=== PATIENT | male | born 1975 | race Caucasian/White ===

== ENCOUNTER 2018-06-17 12:28 | Inpatient (IN) | payer SELFPAY ==
[~2018-06-17] VITALS: Ht 170.2 cm; Wt 71.8 kg
[2018-06-17] MEDS ORDERED: fentaNYL PF VIAL 100 MCG/2 ML VIAL IV ONE (12:45)
[2018-06-17] MEDS ORDERED: HALOPERIDOL LACTATE 5 MG/ML VIAL. IM ONE (12:45)
--- NOTE | 2018-06-17 12:45 | EKG ---
[facility] [address] [place] [address] Test Date: 2018-06-17 Test Time: 12:31:55 Pat Name: KELY BROOKS Department: Room: Gender: M [employer]: : 1975 Requested By: PIERRE DALEY Order Number: [id number] Reading MD: Aftab Rodriguez Measurements Intervals [place] Rate: 78 P: 66 OR: 146 QRS: 82 QRSD: 90 T: 64 QT: 386 QTc: 444 Interpretive Statements SINUS RHYTHM NONSPECIFIC ST-T WAVE CHANGES. Electronically Signed On 06-21-2018 9:20:05 CDT by Aftab Rodriguez
[2018-06-17 12:49] LABS: BASO # 0.1 x10^3/uL (0.0-0.2); BASO % 1 % (0-3); EOS # 0.3 x10^3/uL (0.0-0.7); EOS % 3 % (0-3); HEMATOCRIT 45.4 % (39.0-53.0); LYMPH # 4.6 x10^3/uL (1.0-4.8); LYMPH % 47 % (24-48); MEAN CORPUSCULAR HEMOGLOBIN 29 pg (25-35); MEAN CORPUSCULAR HGB CONC 35 g/dL (31-37); MEAN CORPUSCULAR VOLUME 83 fL (79-100); MONO # 0.6 x10^3/uL (0.0-1.1); MONO % 6 % (0-9); NEUT # 4.3 x10^3uL (1.8-7.7); NEUT % 44 % (31-73); PLATELET COUNT 297 x10^3/uL (140-400); RED BLOOD COUNT 5.46 x10^6/uL (4.30-5.70); RED CELL DISTRIBUTION WIDTH 13.1 % (11.5-14.5); WHITE BLOOD COUNT 9.9 x10^3/uL (4.0-11.0)
[2018-06-17] MEDS ORDERED: IOHEXOL 300 MG/ML 100ML VIAL. IV ONE (13:00)
[2018-06-17 13:01] LABS: CALCIUM 9.8 mg/dL (8.5-10.1); CREATININE 1.1 mg/dL (0.7-1.3); GFR 73.4; POTASSIUM 3.6 mmol/L (3.5-5.1)
[2018-06-17 13:15] LABS: ALBUMIN 4.1 g/dL (3.4-5.0); ALBUMIN/GLOBULIN RATIO 1.1 (1.0-1.7); TOTAL BILIRUBIN 0.3 mg/dL (0.2-1.0)
--- NOTE | 2018-06-17 13:52 | RAD ---
CT ABD PELV W/ IV CONTRST ONLY Indication: Severe pain Technique: Post contrast CT imaging was performed of the abdomen pelvis, multiplanar reconstruction images submitted. No oral contrast was given. One or more of the following individualized dose reduction techniques were utilized for this examination: 1. Automated exposure control 2. Adjustment of the mA and/or kV according to patient size 3. Use of iterative reconstruction technique. Comparison: None Findings: There is no abnormality of the limited visualized lung bases. Accurate evaluation of bowel is somewhat limited without oral contrast. There is prominent distention of stomach with fluid present. There is also dilatation of small bowel up to about 4.3 cm in caliber, associated long segment wall thickening more proximal small bowel most notable in the central and left abdomen. There is also dilatation of the duodenum. There is some transition of the caliber of the small bowel apparently in the left abdomen axial images 43 through 50 at which there appears to be somewhat rotational appearance of the mesentery vasculature and fat. More distal small bowel is not dilated. The colon is not significantly dilated. There is no free air or free fluid. There is distention of the urinary bladder. At least a segment of normal appendix is believed to be visualized. Both kidneys enhance, no hydronephrosis. There is no adrenal nodularity. No focal abnormality is identified of the liver, spleen, pancreas. Gallbladder is present without obvious intraluminal abnormality by CT. IMPRESSION: 1. There is evidence of small bowel obstruction with transition in the left abdomen, somewhat rotational appearance of mesenteric fat and vasculature in the left abdomen as may be seen with component of mesenteric volvulus. There is associated long segment small bowel wall thickening. There is no significant free fluid or free air. There is distention of stomach. 2. There is distention of the urinary bladder. Electronically signed by: Lamont Rizo MD (06/17/2018 1:49 PM) [email or web address]
[2018-06-17] MEDS ORDERED: IV NORMAL SALINE 1000ML BAG 1,000 ML IV ONE (14:15)
[2018-06-17] MEDS ORDERED: ONDANSETRON PF 4 MG/2 ML VIAL. IV PRN ×2 (14:15→16:15)
[2018-06-17] MEDS ORDERED: IV NORMAL SALINE 500ML BAG 500 ML IV ONE (14:15)
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
[2018-06-17] MEDS: MORPHINE SULFATE 4 MG/ML VIAL. IV PRN ×2 (14:28→22:10)
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
[2018-06-17 15:20] VITALS: BP 129/102
[2018-06-17] MEDS ORDERED: BUPIVAC MPF-EPI 0.5%-1:200000 30 ML VIAL. ONE (15:28)
--- NOTE | 2018-06-17 15:28 | RAD ---
AP view of the abdomen 3:12 PM Clinical indications: NG tube placement. IMPRESSION: NG tube is seen extending down to the distal esophagus and then is reflected upon itself within the distal esophagus. Therefore the tip is directed towards the mid thoracic esophagus. Repositioning is necessary. Electronically signed by: Earnest Bajwa MD (06/17/2018 3:25 PM) [id number]
--- NOTE | 2018-06-17 15:30 | RAD ---
AP view of the abdomen 3:00 p.m. Clinical indications: NG tube placement. Findings/ impression: NG tube seen extending down to the level of the distal esophagus and then the tube tip is directed back up into the esophagus. Therefore the tube is not located within the stomach. Repositioning of the 2 is necessary. There is moderate gaseous distention of the stomach. Electronically signed by: Earnest Bajwa MD (06/17/2018 3:27 PM) [id number]
--- NOTE | 2018-06-17 15:30 | NUR ---
Pt admitted from ED. Pt is A&O X4 drowsy, VSS, denies pain. Completed admission assessment with assistance from his mother. IVF infusing. NPO for surgery. Dr. Queen saw patient and plans to take him to surgery [facility]. Consents were signed. Report was given to Ashley. Call light within reach. Will continue to monitor.
[2018-06-17] MEDS: IV NORMAL SALINE 1000ML BAG 1,000 ML IV SCH ×2 (15:48→22:10)
[2018-06-17] MEDS ORDERED: IV RINGERS,LACTATED 1000ML 1,000 ML IV SCH (16:03)
[2018-06-17] MEDS ORDERED: SEVOFLURANE > 120 MINUTES. IH ONE (16:07)
[2018-06-17] MEDS ORDERED: SUCCINYLCHOLINE 200 MG/10 ML VIAL. ONE (16:08)
[2018-06-17] MEDS ORDERED: GLYCOPYRROLATE 1 MG/5 ML VIAL. ONE (16:08)
[2018-06-17] MEDS ORDERED: ROCURONIUM 50 MG/5 ML VIAL. ONE (16:08)
[2018-06-17] MEDS ORDERED: MIDAZOLAM HCL/PF 2 MG/2 ML VIAL. ONE ×2 (16:08→17:33)
[2018-06-17] MEDS ORDERED: fentaNYL PF VIAL 100 MCG/2 ML VIAL ONE (16:08)
[2018-06-17] MEDS ORDERED: NEOSTIGMINE METHYLSULFATE 5 MG/5 ML SYRINGE. ONE (16:08)
[2018-06-17] MEDS ORDERED: KETOROLAC 30 MG/ML INJ FOR OR. INJ ONE (16:09)
[2018-06-17] MEDS ORDERED: LIDOCAINE 2% PF 5 ML VIAL. ONE (16:09)
[2018-06-17] MEDS ORDERED: DEXAMETHASONE SOD PHOS 4 MG/ML VIAL ONE (16:09)
[2018-06-17] MEDS ORDERED: ONDANSETRON PF 4 MG/2 ML VIAL. ONE (16:09)
[2018-06-17] MEDS ORDERED: PROPOFOL 20 ML IV ONE (16:09)
[2018-06-17] MEDS ORDERED: fentaNYL PF VIAL 100 MCG/2 ML VIAL IV PRN ×2 (16:15)
[2018-06-17] MEDS ORDERED: LIDOCAINE 1% PF 2 ML VIAL. ID PRN (16:15)
[2018-06-17] MEDS ORDERED: PROCHLORPERAZINE 10 MG/2 ML VIAL. IV PRN (16:15)
[2018-06-17] MEDS ORDERED: HYDROmorphone 2 MG/ML VIAL IV PRN (16:15)
[2018-06-17] MEDS ORDERED: MORPHINE SULFATE 2 MG/ML VIAL. IV PRN (16:15)
--- NOTE | 2018-06-17 16:35 | NUR ---
Pt off unit with transportation to surgery.
[2018-06-17] MEDS ORDERED: FAMOTIDINE 20 MG/2 ML VIAL ONE (17:32)
[2018-06-17] MEDS ORDERED: ePHEDrine PF IN SALINE 50 MG/10 ML SYRINGE. IV ONE (17:58)
[2018-06-17] MEDS ORDERED: SEVOFLURANE 61 TO 120 MINUTES. IH ONE (18:22)
--- NOTE | 2018-06-17 20:30 | NUR ---
Pt arrived to unit from PACU via bed, report rcvd from LORENA Cordero. Pt resting in bed and call light within reach, will continue to monitor.
[2018-06-17 21:00] VITALS: BP 142/92
[2018-06-17 21:30] VITALS: BP 136/82
[2018-06-17 22:00] VITALS: BP 144/93
[2018-06-17 23:00] VITALS: BP 139/94
[2018-06-17 23:14] LABS: BILIRUBIN,URINE NEGATIVE (NEG); CLARITY,URINE CLEAR; COLOR,URINE YELLOW; NITRITE,URINE NEGATIVE (NEG); PROTEIN,URINE NEGATIVE (NEG-TRACE)
[2018-06-17 23:20] LABS: BACTERIA,URINE 0 /HPF (0-FEW); BARBITURATES NEG (NEG); BENZODIAZEPINES POS (NEG); CANNABINOIDS NEG (NEG); COCAINE NEG (NEG); METHADONE NEG (NEG); OPIATES POS (NEG); PHENCYCLIDINE NEG (NEG); RBC,URINE OCC /HPF (0-2); SQUAMOUS EPITHELIAL CELL,UR OCC /LPF
[2018-06-17 23:22] LABS: AMPHETAMINE/METHAMPHETAMINE POS (NEG)
[2018-06-18 03:25] VITALS: BP 136/89
--- NOTE | 2018-06-18 03:32 | PDOC ---
BRIEF OPERATIVE NOTE Date: Jun 17, 2018 Pre-Op Diagnosis small bowel obstruction,possible ischemia Post-Op Diagnosis small bowel obstruction 2/2 adhesions Procedure Performed l/s -> open explorations release small bowel obstruction MODESTO Surgeon Bret Supervisor Rod Placing Kassandra LEONARDO Anesthesia Type: General Blood Loss 25cc IV Fluid 800cc Urine Output 700cc Specimens Obtained none Findings dense adhesive band creating an internal hernia with vascular embarrassment Complications none ZUHAIR TORO MD Jun 18, 2018 03:32
[2018-06-18 04:20] LABS: BASO % 0 % (0-3); EOS % 0 % (0-3); HEMOGLOBIN 14.9 g/dL (13.0-17.5); LYMPH # 1.6 x10^3/uL (1.0-4.8); LYMPH % 12 % (24-48); MEAN CORPUSCULAR HEMOGLOBIN 29 pg (25-35); MEAN CORPUSCULAR HGB CONC 34 g/dL (31-37); MEAN CORPUSCULAR VOLUME 85 fL (79-100); MONO % 8 % (0-9); NEUT # 10.6 x10^3uL (1.8-7.7); NEUT % 80 % (31-73); PLATELET COUNT 230 x10^3/uL (140-400); RED BLOOD COUNT 5.15 x10^6/uL (4.30-5.70); RED CELL DISTRIBUTION WIDTH 13.4 % (11.5-14.5); WHITE BLOOD COUNT 13.2 x10^3/uL (4.0-11.0)
[2018-06-18 05:28] LABS: ALBUMIN 3.3 g/dL (3.4-5.0); ALBUMIN/GLOBULIN RATIO 0.9 (1.0-1.7); CALCIUM 8.6 mg/dL (8.5-10.1); GFR 99.2; POTASSIUM 4.3 mmol/L (3.5-5.1); TOTAL BILIRUBIN 0.5 mg/dL (0.2-1.0); TOTAL PROTEIN 6.8 g/dL (6.4-8.2)
[2018-06-18 07:00] VITALS: BP 142/93
--- NOTE | 2018-06-18 07:49 | RAD ---
Portable abdomen, 06/17/2018: HISTORY: Postop exploratory laparotomy And NG tube extends into the proximal aspect of the stomach. Surgical skin clips overlie the lower abdomen and upper pelvis near the midline. Gas is present in large and small bowel in a nonspecific pattern. There is no evidence organomegaly. There is no evidence of a retained surgical instrument, needle or radiopaque sponge on this single view. Electronically signed by: Surjit Bojorquez MD (06/18/2018 7:46 AM) [facility]
[2018-06-18] MEDS: MORPHINE SULFATE 4 MG/ML VIAL. IV PRN ×2 (10:08→14:11)
[2018-06-18] MEDS: IV NORMAL SALINE 1000ML BAG 1,000 ML IV SCH ×2 (10:09→19:25)
--- NOTE | 2018-06-18 10:18 | OP ---
DATE OF SURGERY: 06/17/2018 PREOPERATIVE DIAGNOSIS: Small-bowel obstruction with possible ischemia. POSTOPERATIVE DIAGNOSIS: Small bowel obstruction secondary to adhesions with some vascular embarrassment to the small bowel. PROCEDURE: Laparoscopic converted to open exploration with release of small-bowel obstruction and lysis of adhesions. SURGEON: Uriel Toro MD INTERNAL AFFAIRS INVESTIGATOR: JORDEN Brice. ANESTHESIA: General endotracheal. ESTIMATED BLOOD LOSS: 25. INTRAVENOUS: 800. URINE OUTPUT: 700. INDICATIONS: The patient is a 42-year-old with severe abdominal pain, elevated lactic acid, CT scan suggesting internal hernia with possible threatened bowel. OPERATIVE FINDINGS: He did have extensive adhesions from previous surgery with a large band across the small bowel, creating an internal hernia. All bowels appeared viable. DESCRIPTION OF PROCEDURE: The patient brought to the operating suite, given a general endotracheal anesthetic. Cavazos catheter placed to dependent drainage and the abdomen prepped and draped in usual sterile fashion. A right mid quadrant skin incision was made and a 5 mm Visiport used to gain access into the abdominal cavity. Pneumoperitoneum established. This revealed extensive omental adhesions to the abdominal wall and as such, we opted for an open procedure. The old midline scar was excised and the abdomen carefully entered. It was explored with results as noted above. With the Omni self-retaining retractor for exposure, we traced down to the point of obstruction of the bowel and divided the band, creating the internal hernia. We then inspected the small bowel from ligament of Treitz to ileocecal valve to assure viability and no further obstruction. Multiple adhesions were lysed without creating enterotomy. We had run the bowel in its entirety, the abdomen was irrigated, evacuated and checked for hemostasis. When present and a correct sponge count was obtained, the incision was closed in a single layer using looped 0 PDS tied in the middle. Skin closed with avis. Sterile dressing applied. Postop foreign body film was negative for unexplained foreign body. The patient was awakened from his anesthetic and taken to the recovery room in satisfactory condition. URIEL TORO MD DR: YRIS/alyson JOB#: [id number] / [id number]
[2018-06-18 11:00] VITALS: BP 129/86
--- NOTE | 2018-06-18 11:48 | PDOC ---
PROGRESS NOTES Chief Complaint Chief Complaint DATE OF SURGERY: 06/17/2018 PREOPERATIVE DIAGNOSIS: Small-bowel obstruction with possible ischemia. POSTOPERATIVE DIAGNOSIS: Small bowel obstruction secondary to adhesions with some vascular embarrassment to the small bowel. PROCEDURE: Laparoscopic converted to open exploration with release of small-bowel obstruction and lysis of adhesions. SURGEON: Uriel Queen MD RICE DRIER: JORDEN Brice. ANESTHESIA: General endotracheal. ESTIMATED BLOOD LOSS: 25. INTRAVENOUS: 800. URINE OUTPUT: 700. INDICATIONS: The patient is a 42-year-old with severe abdominal pain, elevated lactic acid, CT scan suggesting internal hernia with possible threatened bowel. History of Present Illness History of Present Illness VTE Prophylaxis Ordered VTE Prophylaxis Devices: Yes VTE Pharmacological Prophylaxi: Yes Assessment/Plan Assessment/Plan IMPRESSION 1. evidence of small bowel obstruction with transition in the left abdomen, somewhat rotational appearance of mesenteric fat and vasculature in the left abdomen as may be seen with component of mesenteric volvulus. There is associated long segment small bowel wall thickening. There is no significant free fluid or free air. There is distention of stomach. 2. distention of the urinary bladder. 3. lactic acidosis 4. acute abdomen 5. meth abuse hx plan admit [place] consult npo iv fluid support iv pain control gi consult progressive ambulation frequent labs 45 min pt exam, chart review,> 50% of time spent with exam, chart review, pt care coordination high risk for recovery given hx substance abuse Vitals Vitals Vital Signs Date Time Temp Pulse Resp B/P (MAP) Pulse Ox O2 Delivery O2 Flow Rate FiO2 06/18/18 10:08 Room Air 06/18/18 07:00 98.6 80 16 142/93 (109) 99 98.6 06/17/18 19:27 10 Physical Exam General: Alert, Oriented X3, Cooperative, mild distress, moderate distress Heart: Regular rate, Normal S1, Normal S2 Lungs: Clear Abdomen: Soft, Other (diffusely tender, appears to guard, moves around all over cot during exam, mild distention, midline scar noted ) Extremities: No cyanosis, No edema Skin: No rashes, No breakdown, No significant lesion Labs LABS CT ABD PELV W/ IV CONTRST ONLY Indication: Severe pain Technique: Post contrast CT imaging was performed of the abdomen pelvis, multiplanar reconstruction images submitted. No oral contrast was given. One or more of the following individualized dose reduction techniques were utilized for this examination: 1. Automated exposure control 2. Adjustment of the mA and/or kV according to patient size 3. Use of iterative reconstruction technique. Comparison: None Findings: There is no abnormality of the limited visualized lung bases. Accurate evaluation of bowel is somewhat limited without oral contrast. There is prominent distention of stomach with fluid present. There is also dilatation of small bowel up to about 4.3 cm in caliber, associated long segment wall thickening more proximal small bowel most notable in the central and left abdomen. There is also dilatation of the duodenum. There is some transition of the caliber of the small bowel apparently in the left abdomen axial images 43 through 50 at which there appears to be somewhat rotational appearance of the mesentery vasculature and fat. More distal small bowel is not dilated. The colon is not significantly dilated. There is no free air or free fluid. There is distention of the urinary bladder. At least a segment of normal appendix is believed to be visualized. Both kidneys enhance, no hydronephrosis. There is no adrenal nodularity. No focal abnormality is identified of the liver, spleen, pancreas. Gallbladder is present without obvious intraluminal abnormality by CT. IMPRESSION: 1. There is evidence of small bowel obstruction with transition in the left abdomen, somewhat rotational appearance of mesenteric fat and vasculature in the left abdomen as may be seen with component of mesenteric volvulus. There is associated long segment small bowel wall thickening. There is no significant free fluid or free air. There is distention of stomach. 2. There is distention of the urinary bladder. Electronically signed by: Lamnot Rizo MD (06/17/2018 1:49 PM) [id number] Laboratory Tests Test 06/17/18 12:25 06/17/18 12:30 06/17/18 23:00 06/18/18 03:40 White Blood Count 9.9 x10^3/uL (4.0-11.0) 13.2 x10^3/uL (4.0-11.0) Red Blood Count 5.46 x10^6/uL (4.30-5.70) 5.15 x10^6/uL (4.30-5.70) Hemoglobin 16.0 g/dL (13.0-17.5) 14.9 g/dL (13.0-17.5) Hematocrit 45.4 % (39.0-53.0) 44.0 % (39.0-53.0) Mean Corpuscular Volume 83 fL (79-100) 85 fL (79-100) Mean Corpuscular Hemoglobin 29 pg (25-35) 29 pg (25-35) Mean Corpuscular Hemoglobin Concent 35 g/dL (31-37) 34 g/dL (31-37) Red Cell Distribution Width 13.1 % (11.5-14.5) 13.4 % (11.5-14.5) Platelet Count 297 x10^3/uL (140-400) 230 x10^3/uL (140-400) Neutrophils (%) (Auto) 44 % (31-73) 80 % (31-73) Lymphocytes (%) (Auto) 47 % (24-48) 12 % (24-48) Monocytes (%) (Auto) 6 % (0-9) 8 % (0-9) Eosinophils (%) (Auto) 3 % (0-3) 0 % (0-3) Basophils (%) (Auto) 1 % (0-3) 0 % (0-3) Neutrophils # (Auto) 4.3 x10^3uL (1.8-7.7) 10.6 x10^3uL (1.8-7.7) Lymphocytes # (Auto) 4.6 x10^3/uL (1.0-4.8) 1.6 x10^3/uL (1.0-4.8) Monocytes # (Auto) 0.6 x10^3/uL (0.0-1.1) 1.0 x10^3/uL (0.0-1.1) Eosinophils # (Auto) 0.3 x10^3/uL (0.0-0.7) 0.0 x10^3/uL (0.0-0.7) Basophils # (Auto) 0.1 x10^3/uL (0.0-0.2) 0.0 x10^3/uL (0.0-0.2) Sodium Level 142 mmol/L (136-145) 142 mmol/L (136-145) Potassium Level 3.6 mmol/L (3.5-5.1) 4.3 mmol/L (3.5-5.1) Chloride Level 102 mmol/L (98-107) 106 mmol/L (98-107) Carbon Dioxide Level 27 mmol/L (21-32) 27 mmol/L (21-32) Anion Gap 13 (6-14) 9 (6-14) Blood Urea Nitrogen 18 mg/dL (8-26) 14 mg/dL (8-26) Creatinine 1.1 mg/dL (0.7-1.3) 1.0 mg/dL (0.7-1.3) Estimated GFR (Cockcroft-Gault) 73.4 99.2 BUN/Creatinine Ratio 16 (6-20) 14 (6-20) Glucose Level 126 mg/dL (70-99) 120 mg/dL (70-99) Calcium Level 9.8 mg/dL (8.5-10.1) 8.6 mg/dL (8.5-10.1) Total Bilirubin 0.3 mg/dL (0.2-1.0) 0.5 mg/dL (0.2-1.0) Aspartate Amino Transf (AST/SGOT) 38 U/L (15-37) 48 U/L (15-37) Alanine Aminotransferase (ALT/SGPT) 41 U/L (16-63) 35 U/L (16-63) Alkaline Phosphatase 107 U/L (46-116) 67 U/L (46-116) Total Protein 8.0 g/dL (6.4-8.2) 6.8 g/dL (6.4-8.2) Albumin 4.1 g/dL (3.4-5.0) 3.3 g/dL (3.4-5.0) Albumin/Globulin Ratio 1.1 (1.0-1.7) 0.9 (1.0-1.7) Lipase 299 U/L (73-393) Ethyl Alcohol Level < 10 mg/dL (0-10) Lactic Acid Level 3.4 mmol/L (0.4-2.0) Urine Collection Type Unknown Urine Color Yellow Urine Clarity Clear Urine pH 8.0 Urine Specific [place] >=1.030 Urine Protein Negative mg/dL (NEG-TRACE) Urine Glucose (UA) Negative mg/dL (NEG) Urine Ketones (Stick) Trace mg/dL (NEG) Urine Blood Negative (NEG) Urine Nitrite Negative (NEG) Urine Bilirubin Negative (NEG) Urine Urobilinogen Dipstick 1.0 mg/dL (0.2 mg/dL) Urine Leukocyte Esterase Negative (NEG) Urine RBC Occ /HPF (0-2) Urine WBC 5-10 /HPF (0-4) Urine Squamous Epithelial Cells Occ /LPF Urine Bacteria 0 /HPF (0-FEW) Urine Mucus Slight /LPF Urine Opiates Screen Pos (NEG) Urine Methadone Screen Neg (NEG) Urine Barbiturates Neg (NEG) Urine Phencyclidine Screen Neg (NEG) Urine Amphetamine/Methamphetamine Pos (NEG) Urine Benzodiazepines Screen Pos (NEG) Urine Cocaine Screen Neg (NEG) Urine Cannabinoids Screen Neg (NEG) Urine Ethyl Alcohol Neg (NEG) Assessment and Plan Assessmemt and Plan Problems Medical Problems: (1) Small bowel obstruction Status: Acute Comment Review of Relevant I have reviewed the following items brianna (where applicable) has been applied. Labs Laboratory Tests Test 06/17/18 12:25 06/17/18 12:30 06/17/18 23:00 06/18/18 03:40 White Blood Count 9.9 x10^3/uL (4.0-11.0) 13.2 x10^3/uL (4.0-11.0) Red Blood Count 5.46 x10^6/uL (4.30-5.70) 5.15 x10^6/uL (4.30-5.70) Hemoglobin 16.0 g/dL (13.0-17.5) 14.9 g/dL (13.0-17.5) Hematocrit 45.4 % (39.0-53.0) 44.0 % (39.0-53.0) Mean Corpuscular Volume 83 fL (79-100) 85 fL (79-100) Mean Corpuscular Hemoglobin 29 pg (25-35) 29 pg (25-35) Mean Corpuscular Hemoglobin Concent 35 g/dL (31-37) 34 g/dL (31-37) Red Cell Distribution Width 13.1 % (11.5-14.5) 13.4 % (11.5-14.5) Platelet Count 297 x10^3/uL (140-400) 230 x10^3/uL (140-400) Neutrophils (%) (Auto) 44 % (31-73) 80 % (31-73) Lymphocytes (%) (Auto) 47 % (24-48) 12 % (24-48) Monocytes (%) (Auto) 6 % (0-9) 8 % (0-9) Eosinophils (%) (Auto) 3 % (0-3) 0 % (0-3) Basophils (%) (Auto) 1 % (0-3) 0 % (0-3) Neutrophils # (Auto) 4.3 x10^3uL (1.8-7.7) 10.6 x10^3uL (1.8-7.7) Lymphocytes # (Auto) 4.6 x10^3/uL (1.0-4.8) 1.6 x10^3/uL (1.0-4.8) Monocytes # (Auto) 0.6 x10^3/uL (0.0-1.1) 1.0 x10^3/uL (0.0-1.1) Eosinophils # (Auto) 0.3 x10^3/uL (0.0-0.7) 0.0 x10^3/uL (0.0-0.7) Basophils # (Auto) 0.1 x10^3/uL (0.0-0.2) 0.0 x10^3/uL (0.0-0.2) Sodium Level 142 mmol/L (136-145) 142 mmol/L (136-145) Potassium Level 3.6 mmol/L (3.5-5.1) 4.3 mmol/L (3.5-5.1) Chloride Level 102 mmol/L (98-107) 106 mmol/L (98-107) Carbon Dioxide Level 27 mmol/L (21-32) 27 mmol/L (21-32) Anion Gap 13 (6-14) 9 (6-14) Blood Urea Nitrogen 18 mg/dL (8-26) 14 mg/dL (8-26) Creatinine 1.1 mg/dL (0.7-1.3) 1.0 mg/dL (0.7-1.3) Estimated GFR (Cockcroft-Gault) 73.4 99.2 BUN/Creatinine Ratio 16 (6-20) 14 (6-20) Glucose Level 126 mg/dL (70-99) 120 mg/dL (70-99) Calcium Level 9.8 mg/dL (8.5-10.1) 8.6 mg/dL (8.5-10.1) Total Bilirubin 0.3 mg/dL (0.2-1.0) 0.5 mg/dL (0.2-1.0) Aspartate Amino Transf (AST/SGOT) 38 U/L (15-37) 48 U/L (15-37) Alanine Aminotransferase (ALT/SGPT) 41 U/L (16-63) 35 U/L (16-63) Alkaline Phosphatase 107 U/L (46-116) 67 U/L (46-116) Total Protein 8.0 g/dL (6.4-8.2) 6.8 g/dL (6.4-8.2) Albumin 4.1 g/dL (3.4-5.0) 3.3 g/dL (3.4-5.0) Albumin/Globulin Ratio 1.1 (1.0-1.7) 0.9 (1.0-1.7) Lipase 299 U/L (73-393) Ethyl Alcohol Level < 10 mg/dL (0-10) Lactic Acid Level 3.4 mmol/L (0.4-2.0) Urine Collection Type Unknown Urine Color Yellow Urine Clarity Clear Urine pH 8.0 Urine Specific [place] >=1.030 Urine Protein Negative mg/dL (NEG-TRACE) Urine Glucose (UA) Negative mg/dL (NEG) Urine Ketones (Stick) Trace mg/dL (NEG) Urine Blood Negative (NEG) Urine Nitrite Negative (NEG) Urine Bilirubin Negative (NEG) Urine Urobilinogen Dipstick 1.0 mg/dL (0.2 mg/dL) Urine Leukocyte Esterase Negative (NEG) Urine RBC Occ /HPF (0-2) Urine WBC 5-10 /HPF (0-4) Urine Squamous Epithelial Cells Occ /LPF Urine Bacteria 0 /HPF (0-FEW) Urine Mucus Slight /LPF Urine Opiates Screen Pos (NEG) Urine Methadone Screen Neg (NEG) Urine Barbiturates Neg (NEG) Urine Phencyclidine Screen Neg (NEG) Urine Amphetamine/Methamphetamine Pos (NEG) Urine Benzodiazepines Screen Pos (NEG) Urine Cocaine Screen Neg (NEG) Urine Cannabinoids Screen Neg (NEG) Urine Ethyl Alcohol Neg (NEG) Laboratory Tests Test 06/17/18 12:25 06/17/18 12:30 06/17/18 23:00 06/18/18 03:40 White Blood Count 9.9 x10^3/uL (4.0-11.0) 13.2 x10^3/uL (4.0-11.0) Red Blood Count 5.46 x10^6/uL (4.30-5.70) 5.15 x10^6/uL (4.30-5.70) Hemoglobin 16.0 g/dL (13.0-17.5) 14.9 g/dL (13.0-17.5) Hematocrit 45.4 % (39.0-53.0) 44.0 % (39.0-53.0) Mean Corpuscular Volume 83 fL (79-100) 85 fL (79-100) Mean Corpuscular Hemoglobin 29 pg (25-35) 29 pg (25-35) Mean Corpuscular Hemoglobin Concent 35 g/dL (31-37) 34 g/dL (31-37) Red Cell Distribution Width 13.1 % (11.5-14.5) 13.4 % (11.5-14.5) Platelet Count 297 x10^3/uL (140-400) 230 x10^3/uL (140-400) Neutrophils (%) (Auto) 44 % (31-73) 80 % (31-73) Lymphocytes (%) (Auto) 47 % (24-48) 12 % (24-48) Monocytes (%) (Auto) 6 % (0-9) 8 % (0-9) Eosinophils (%) (Auto) 3 % (0-3) 0 % (0-3) Basophils (%) (Auto) 1 % (0-3) 0 % (0-3) Neutrophils # (Auto) 4.3 x10^3uL (1.8-7.7) 10.6 x10^3uL (1.8-7.7) Lymphocytes # (Auto) 4.6 x10^3/uL (1.0-4.8) 1.6 x10^3/uL (1.0-4.8) Monocytes # (Auto) 0.6 x10^3/uL (0.0-1.1) 1.0 x10^3/uL (0.0-1.1) Eosinophils # (Auto) 0.3 x10^3/uL (0.0-0.7) 0.0 x10^3/uL (0.0-0.7) Basophils # (Auto) 0.1 x10^3/uL (0.0-0.2) 0.0 x10^3/uL (0.0-0.2) Sodium Level 142 mmol/L (136-145) 142 mmol/L (136-145) Potassium Level 3.6 mmol/L (3.5-5.1) 4.3 mmol/L (3.5-5.1) Chloride Level 102 mmol/L (98-107) 106 mmol/L (98-107) Carbon Dioxide Level 27 mmol/L (21-32) 27 mmol/L (21-32) Anion Gap 13 (6-14) 9 (6-14) Blood Urea Nitrogen 18 mg/dL (8-26) 14 mg/dL (8-26) Creatinine 1.1 mg/dL (0.7-1.3) 1.0 mg/dL (0.7-1.3) Estimated GFR (Cockcroft-Gault) 73.4 99.2 BUN/Creatinine Ratio 16 (6-20) 14 (6-20) Glucose Level 126 mg/dL (70-99) 120 mg/dL (70-99) Calcium Level 9.8 mg/dL (8.5-10.1) 8.6 mg/dL (8.5-10.1) Total Bilirubin 0.3 mg/dL (0.2-1.0) 0.5 mg/dL (0.2-1.0) Aspartate Amino Transf (AST/SGOT) 38 U/L (15-37) 48 U/L (15-37) Alanine Aminotransferase (ALT/SGPT) 41 U/L (16-63) 35 U/L (16-63) Alkaline Phosphatase 107 U/L (46-116) 67 U/L (46-116) Total Protein 8.0 g/dL (6.4-8.2) 6.8 g/dL (6.4-8.2) Albumin 4.1 g/dL (3.4-5.0) 3.3 g/dL (3.4-5.0) Albumin/Globulin Ratio 1.1 (1.0-1.7) 0.9 (1.0-1.7) Lipase 299 U/L (73-393) Ethyl Alcohol Level < 10 mg/dL (0-10) Lactic Acid Level 3.4 mmol/L (0.4-2.0) Urine Collection Type Unknown Urine Color Yellow Urine Clarity Clear Urine pH 8.0 Urine Specific [place] >=1.030 Urine Protein Negative mg/dL (NEG-TRACE) Urine Glucose (UA) Negative mg/dL (NEG) Urine Ketones (Stick) Trace mg/dL (NEG) Urine Blood Negative (NEG) Urine Nitrite Negative (NEG) Urine Bilirubin Negative (NEG) Urine Urobilinogen Dipstick 1.0 mg/dL (0.2 mg/dL) Urine Leukocyte Esterase Negative (NEG) Urine RBC Occ /HPF (0-2) Urine WBC 5-10 /HPF (0-4) Urine Squamous Epithelial Cells Occ /LPF Urine Bacteria 0 /HPF (0-FEW) Urine Mucus Slight /LPF Urine Opiates Screen Pos (NEG) Urine Methadone Screen Neg (NEG) Urine Barbiturates Neg (NEG) Urine Phencyclidine Screen Neg (NEG) Urine Amphetamine/Methamphetamine Pos (NEG) Urine Benzodiazepines Screen Pos (NEG) Urine Cocaine Screen Neg (NEG) Urine Cannabinoids Screen Neg (NEG) Urine Ethyl Alcohol Neg (NEG) Medications Current Medications Fentanyl Citrate (Fentanyl 2ml Vial) 50 mcg 1X ONCE IV Last administered on 06/17/18at 12:43; Start 06/17/18 at 12:45; Stop 06/17/18 at 12:49; Status DC Haloperidol Lactate (Haldol Inj) 5 mg 1X ONCE IM Last administered on 06/17/18at 12:43; Start 06/17/18 at 12:45; Stop 06/17/18 at 12:49; Status DC Iohexol (Omnipaque 300 Mg/ml) 75 ml 1X ONCE IV Last administered on 06/17/18at 13:26; Start 06/17/18 at 13:00; Stop 06/17/18 at 13:01; Status DC Ondansetron HCl (Zofran) 4 mg PRN Q8HRS PRN IV NAUSEA/VOMITING; Start 06/17/18 at 14:15; Stop 06/18/18 at 14:14 Morphine Sulfate (Morphine Sulfate) 6 mg PRN Q2HR PRN IV PAIN Last administered on 06/18/18at 10:08; Start 06/17/18 at 14:15; Stop 06/18/18 at 14:14 Sodium Chloride 1,000 ml @ 125 mls/hr Q8H IV Last administered on 06/18/18at 10:09; Start 06/17/18 at 14:03; Stop 06/18/18 at 14:02 Sodium Chloride 500 ml @ 500 mls/hr 1X ONCE IV ; Start 06/17/18 at 14:15; Stop 06/17/18 at 15:14; Status DC Sodium Chloride 1,000 ml @ 1,000 mls/hr 1X ONCE IV Last administered on 06/17/18at 14:29; Start 06/17/18 at 14:15; Stop 06/17/18 at 15:14; Status DC Cefazolin Sodium/ Dextrose 50 ml @ 100 mls/hr 1X ONCE IV Last administered on 06/17/18at 17:15; Start 06/17/18 at 16:00; Stop 06/17/18 at 16:29; Status DC Metronidazole 100 ml @ 100 mls/hr 1X ONCE IV ; Start 06/17/18 at 16:00; Stop 06/17/18 at 16:59; Status DC Sevoflurane (Ultane) 90 ml STK-MED ONCE IH ; Start 06/17/18 at 16:07; Stop 06/17/18 at 16:09; Status DC Midazolam HCl (Versed) 2 mg STK-MED ONCE .ROUTE ; Start 06/17/18 at 16:08; Stop 06/17/18 at 16:09; Status DC Fentanyl Citrate (Fentanyl 2ml Vial) 100 mcg STK-MED ONCE .ROUTE ; Start 06/17/18 at 16:08; Stop 06/17/18 at 16:09; Status DC Succinylcholine Chloride (Anectine) 200 mg STK-MED ONCE .ROUTE ; Start 06/17/18 at 16:08; Stop 06/17/18 at 16:09; Status DC Glycopyrrolate (Robinul) 1 mg STK-MED ONCE .ROUTE ; Start 06/17/18 at 16:08; Stop 06/17/18 at 16:09; Status DC Neostigmine Methylsulfate (Neostigmine Methylsulfate) 5 mg STK-MED ONCE .ROUTE ; Start 06/17/18 at 16:08; Stop 06/17/18 at 16:09; Status DC Rocuronium Hammond (Zemuron) 50 mg STK-MED ONCE .ROUTE ; Start 06/17/18 at 16:08; Stop 06/17/18 at 16:09; Status DC Dexamethasone Sodium Phosphate (Decadron) 4 mg STK-MED ONCE .ROUTE ; Start 06/17/18 at 16:09; Stop 06/17/18 at 16:10; Status DC Propofol 20 ml @ As Directed STK-MED ONCE IV ; Start 06/17/18 at 16:09; Stop 06/17/18 at 16:10; Status DC Lidocaine HCl (Lidocaine Pf 2% Vial) 5 ml STK-MED ONCE .ROUTE ; Start 06/17/18 at 16:09; Stop 06/17/18 at 16:10; Status DC Ondansetron HCl (Zofran) 4 mg STK-MED ONCE .ROUTE ; Start 06/17/18 at 16:09; Stop 06/17/18 at 16:10; Status DC Ketorolac Tromethamine (Toradol For Or Only) 30 mg STK-MED ONCE INJ ; Start 06/17/18 at 16:09; Stop 06/17/18 at 16:10; Status DC Ondansetron HCl (Zofran) 4 mg PRN Q6HRS PRN IV NAUSEA/VOMITING; Start 06/17/18 at 16:15; Stop 06/18/18 at 16:14 Fentanyl Citrate (Fentanyl 2ml Vial) 25 mcg PRN Q5MIN PRN IV MILD PAIN; Start 06/17/18 at 16:15; Stop 06/18/18 at 16:14 Fentanyl Citrate (Fentanyl 2ml Vial) 50 mcg PRN Q5MIN PRN IV MODERATE TO SEVERE PAIN Last administered on 06/17/18at 19:45; Start 06/17/18 at 16:15; Stop 06/18/18 at 16:14 Morphine Sulfate (Morphine Sulfate) 1 mg PRN Q10MIN PRN IV SEVERE PAIN; Start 06/17/18 at 16:15; Stop 06/18/18 at 16:14 Ringer's Solution 1,000 ml @ 30 mls/hr Q24H IV ; Start 06/17/18 at 16:03; Stop 06/18/18 at 04:02; Status DC Lidocaine HCl (Xylocaine-Mpf 1% 2ml Vial) 2 ml 1X PRN PRN ID IV START; Start 06/17/18 at 16:15; Stop 06/18/18 at 16:14 Hydromorphone HCl (Dilaudid) 0.5 mg PRN Q10MIN PRN IV SEV PAIN, Second choice; Start 06/17/18 at 16:15; Stop 06/18/18 at 16:14 Prochlorperazine Edisylate (Compazine) 5 mg PACU PRN PRN IV NAUSEA, MRX1 Last administered on 06/17/18at 19:47; Start 06/17/18 at 16:15; Stop 06/18/18 at 16:14 Bupivacaine HCl/ Epinephrine Bitart (Sensorcain-Mpf Epi 0.5%-1:[id number]) 30 ml STK-MED ONCE .ROUTE ; Start 06/17/18 at 15:28; Stop 06/17/18 at 16:29; Status DC Famotidine (Pepcid Vial) 20 mg STK-MED ONCE .ROUTE ; Start 06/17/18 at 17:32; Stop 06/17/18 at 17:34; Status DC Midazolam HCl (Versed) 2 mg STK-MED ONCE .ROUTE ; Start 06/17/18 at 17:33; Stop 06/17/18 at 17:34; Status DC Ephedrine Sulfate (ePHEDrine PF IN SALINE SYRINGE) 50 mg STK-MED ONCE IV ; Start 06/17/18 at 17:58; Stop 06/17/18 at 17:59; Status DC Sevoflurane (Ultane) 60 ml STK-MED ONCE IH ; Start 06/17/18 at 18:22; Stop 06/17/18 at 18:23; Status DC Vitals/I & O Vital Sign - Last 24 Hours 06/17/18 06/17/18 06/17/18 06/17/18 12:30 12:43 13:02 13:35 Temp 94.7 94.7 Pulse 80 78 52 Resp 34 20 24 B/P (MAP) 141/83 (102) 128/105 (113) 159/87 (111) Pulse Ox 100 100 100 92 O2 Delivery Room Air Room Air Room Air Room Air 06/17/18 06/17/18 06/17/18 06/17/18 14:02 14:28 14:32 15:20 Temp 97.5 97.5 Pulse 58 68 52 Resp 18 32 18 B/P (MAP) 129/92 (104) 133/103 (113) 129/102 (111) Pulse Ox 100 100 99 100 O2 Delivery Room Air Room Air Room Air Room Air 06/17/18 06/17/18 06/17/18 06/17/18 16:42 18:42 18:42 18:57 Temp 94.7 97.1 97.1 94.7 97.1 97.1 Pulse 52 65 51 Resp 22 15 15 B/P (MAP) 135/77 145/80 148/91 Pulse Ox 99 99 100 O2 Delivery Room Air Mask Simple Mask Simple Mask O2 Flow Rate 10 10 10 06/17/18 06/17/18 06/17/18 06/17/18 19:12 19:27 19:31 19:42 Temp 97.1 97.1 97.9 97.1 97.1 97.9 Pulse 58 56 65 Resp 19 16 15 B/P (MAP) 145/89 148/92 146/84 Pulse Ox 100 100 100 O2 Delivery Simple Mask Simple Mask Room Air Room Air O2 Flow Rate 10 10 06/17/18 06/17/18 06/17/18 06/17/18 19:45 19:57 19:57 20:12 Temp 97.9 97.9 97.9 97.9 Pulse 61 62 Resp 21 19 16 B/P (MAP) 146/89 138/95 Pulse Ox 100 100 100 O2 Delivery Room Air Room Air Room Air Room Air 06/17/18 06/17/18 06/17/18 06/17/18 20:30 20:30 21:00 21:30 Temp 98.0 98.0 Pulse 88 67 Resp 16 18 18 B/P (MAP) 142/92 (109) 136/82 (100) Pulse Ox 100 100 O2 Delivery Room Air Room Air Room Air Room Air 06/17/18 06/17/18 06/17/18 06/17/18 22:00 22:10 22:50 23:00 Temp 98.3 98.3 Pulse 63 83 Resp 18 16 16 18 B/P (MAP) 144/93 (110) 139/94 (109) Pulse Ox 98 100 99 O2 Delivery Room Air Room Air Room Air Room Air 06/18/18 06/18/18 06/18/18 03:25 07:00 10:08 Temp 98.0 98.6 98.0 98.6 Pulse 82 80 Resp 18 16 B/P (MAP) 136/89 (105) 142/93 (109) Pulse Ox 99 99 O2 Delivery Room Air Room Air Room Air Intake and Output 06/17/18 06/17/18 06/18/18 15:00 23:00 07:00 Intake Total 1850 ml Output Total 925 ml 600 ml Balance 925 ml -600 ml GABRIELA ESQUIVEL MD Jun 18, 2018 11:48
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
[2018-06-18 15:00] VITALS: BP 134/94
--- NOTE | 2018-06-18 15:39 | NUR ---
SW following for discharge planning. Discussed with RN, pt is from home. Pt had surgery yesterday. RN advised no SW needs, pt is currently on parole. SW to give self pay resources to pt prior to discharge.
[2018-06-18] MEDS: MORPHINE SULFATE 10 MG/ML VIAL. IV PRN (19:24)
[2018-06-18 19:35] VITALS: BP 134/98
[2018-06-18 23:41] VITALS: BP 140/102
[2018-06-19] MEDS: MORPHINE SULFATE 10 MG/ML VIAL. IV PRN ×4 (01:31→19:51)
[2018-06-19 03:27] VITALS: BP 134/91
[2018-06-19] MEDS: IV NORMAL SALINE 1000ML BAG 1,000 ML IV SCH ×2 (06:05→21:07)
[2018-06-19 07:00] VITALS: BP 136/99
--- NOTE | 2018-06-19 09:14 | PDOC ---
Subjective: Subjective: Pain is the same, denies flatus/stool, has taken some ice chips. Objective: Objective: NG clamped. Vital Signs: Vital Signs Date Time Temp Pulse Resp B/P (MAP) Pulse Ox O2 Delivery O2 Flow Rate FiO2 06/19/18 08:07 16 Room Air 06/19/18 07:00 97.9 82 136/99 (111) 95 97.9 PE: GEN: NAD HEENT: keep eyes closed LUNGS: CTAB HEART: RRR ABD: keeps arms folded over abdomen, dressing intact, tender, soft, quiet NEURO/PSYCH: A & O 3 but drowsy A/P: S/p release of SBO and MODESTO -- Continue per surgery. JOHNATHAN EVANS June 19, 2018 09:14
[2018-06-19] MEDS: FAMOTIDINE 20 MG/2 ML VIAL IVP SCH ×2 (10:13→21:07)
[2018-06-19 11:00] VITALS: BP 131/86
[2018-06-19 11:35] LABS: BASO # 0.1 x10^3/uL (0.0-0.2); BASO % 1 % (0-3); EOS % 0 % (0-3); HEMATOCRIT 47.4 % (39.0-53.0); HEMOGLOBIN 15.9 g/dL (13.0-17.5); LYMPH # 2.2 x10^3/uL (1.0-4.8); LYMPH % 20 % (24-48); MEAN CORPUSCULAR HEMOGLOBIN 29 pg (25-35); MEAN CORPUSCULAR HGB CONC 34 g/dL (31-37); MEAN CORPUSCULAR VOLUME 86 fL (79-100); MONO # 0.9 x10^3/uL (0.0-1.1); MONO % 8 % (0-9); NEUT # 7.9 x10^3uL (1.8-7.7); NEUT % 71 % (31-73); PLATELET COUNT 224 x10^3/uL (140-400); RED BLOOD COUNT 5.53 x10^6/uL (4.30-5.70); RED CELL DISTRIBUTION WIDTH 13.3 % (11.5-14.5); WHITE BLOOD COUNT 11.2 x10^3/uL (4.0-11.0)
[2018-06-19 12:03] LABS: ALBUMIN 3.3 g/dL (3.4-5.0); ALBUMIN/GLOBULIN RATIO 0.8 (1.0-1.7); CALCIUM 9.1 mg/dL (8.5-10.1); CREATININE 0.9 mg/dL (0.7-1.3); POTASSIUM 4.2 mmol/L (3.5-5.1); TOTAL BILIRUBIN 0.7 mg/dL (0.2-1.0); TOTAL PROTEIN 7.6 g/dL (6.4-8.2)
--- NOTE | 2018-06-19 12:20 | PDOC ---
PROGRESS NOTES Chief Complaint Chief Complaint DATE OF SURGERY: 06/17/2018 PREOPERATIVE DIAGNOSIS: Small-bowel obstruction with possible ischemia. POSTOPERATIVE DIAGNOSIS: Small bowel obstruction secondary to adhesions with some vascular embarrassment to the small bowel. PROCEDURE: Laparoscopic converted to open exploration with release of small-bowel obstruction and lysis of adhesions. SURGEON: Uriel Queen MD SIDE STITCHER: JORDEN Brice. ANESTHESIA: General endotracheal. ESTIMATED BLOOD LOSS: 25. INTRAVENOUS: 800. URINE OUTPUT: 700. INDICATIONS: The patient is a 42-year-old with severe abdominal pain, elevated lactic acid, CT scan suggesting internal hernia with possible threatened bowel. History of Present Illness History of Present Illness VTE Prophylaxis Ordered VTE Prophylaxis Devices: Yes VTE Pharmacological Prophylaxi: Yes Assessment/Plan Assessment/Plan IMPRESSION 1. evidence of small bowel obstruction with transition in the left abdomen, somewhat rotational appearance of mesenteric fat and vasculature in the left abdomen as may be seen with component of mesenteric volvulus. There is associated long segment small bowel wall thickening. There is no significant free fluid or free air. There is distention of stomach. 2. distention of the urinary bladder. 3. lactic acidosis 4. acute abdomen 5. meth abuse hx plan admit [place] consult npo iv fluid support iv pain control gi consult progressive ambulation frequent labs 45 min pt exam, chart review,> 50% of time spent with exam, chart review, pt care coordination high risk for recovery given hx substance abuse Vitals Vitals Vital Signs Date Time Temp Pulse Resp B/P (MAP) Pulse Ox O2 Delivery O2 Flow Rate FiO2 06/19/18 08:07 16 Room Air 06/19/18 07:00 97.9 82 136/99 (111) 95 97.9 Physical Exam General: Alert, Oriented X3, Cooperative, mild distress, moderate distress Heart: Regular rate, Normal S1, Normal S2, No murmurs Lungs: Clear Abdomen: Soft, Other (dressing dry, clean, intact) Extremities: No cyanosis, No edema Skin: No rashes, No breakdown, No significant lesion Labs LABS Laboratory Tests Test 06/19/18 09:51 White Blood Count 11.2 x10^3/uL (4.0-11.0) Red Blood Count 5.53 x10^6/uL (4.30-5.70) Hemoglobin 15.9 g/dL (13.0-17.5) Hematocrit 47.4 % (39.0-53.0) Mean Corpuscular Volume 86 fL (79-100) Mean Corpuscular Hemoglobin 29 pg (25-35) Mean Corpuscular Hemoglobin Concent 34 g/dL (31-37) Red Cell Distribution Width 13.3 % (11.5-14.5) Platelet Count 224 x10^3/uL (140-400) Neutrophils (%) (Auto) 71 % (31-73) Lymphocytes (%) (Auto) 20 % (24-48) Monocytes (%) (Auto) 8 % (0-9) Eosinophils (%) (Auto) 0 % (0-3) Basophils (%) (Auto) 1 % (0-3) Neutrophils # (Auto) 7.9 x10^3uL (1.8-7.7) Lymphocytes # (Auto) 2.2 x10^3/uL (1.0-4.8) Monocytes # (Auto) 0.9 x10^3/uL (0.0-1.1) Eosinophils # (Auto) 0.0 x10^3/uL (0.0-0.7) Basophils # (Auto) 0.1 x10^3/uL (0.0-0.2) Sodium Level 136 mmol/L (136-145) Potassium Level 4.2 mmol/L (3.5-5.1) Chloride Level 99 mmol/L (98-107) Carbon Dioxide Level 28 mmol/L (21-32) Anion Gap 9 (6-14) Blood Urea Nitrogen 15 mg/dL (8-26) Creatinine 0.9 mg/dL (0.7-1.3) Estimated GFR (Cockcroft-Gault) 112.0 BUN/Creatinine Ratio 17 (6-20) Glucose Level 90 mg/dL (70-99) Calcium Level 9.1 mg/dL (8.5-10.1) Total Bilirubin 0.7 mg/dL (0.2-1.0) Aspartate Amino Transf (AST/SGOT) 55 U/L (15-37) Alanine Aminotransferase (ALT/SGPT) 37 U/L (16-63) Alkaline Phosphatase 75 U/L (46-116) Total Protein 7.6 g/dL (6.4-8.2) Albumin 3.3 g/dL (3.4-5.0) Albumin/Globulin Ratio 0.8 (1.0-1.7) Assessment and Plan Assessmemt and Plan Problems Medical Problems: (1) Small bowel obstruction Status: Acute Comment Review of Relevant I have reviewed the following items brianna (where applicable) has been applied. Labs Laboratory Tests Test 06/17/18 12:25 06/17/18 12:30 06/17/18 23:00 06/18/18 03:40 White Blood Count 9.9 x10^3/uL (4.0-11.0) 13.2 x10^3/uL (4.0-11.0) Red Blood Count 5.46 x10^6/uL (4.30-5.70) 5.15 x10^6/uL (4.30-5.70) Hemoglobin 16.0 g/dL (13.0-17.5) 14.9 g/dL (13.0-17.5) Hematocrit 45.4 % (39.0-53.0) 44.0 % (39.0-53.0) Mean Corpuscular Volume 83 fL (79-100) 85 fL (79-100) Mean Corpuscular Hemoglobin 29 pg (25-35) 29 pg (25-35) Mean Corpuscular Hemoglobin Concent 35 g/dL (31-37) 34 g/dL (31-37) Red Cell Distribution Width 13.1 % (11.5-14.5) 13.4 % (11.5-14.5) Platelet Count 297 x10^3/uL (140-400) 230 x10^3/uL (140-400) Neutrophils (%) (Auto) 44 % (31-73) 80 % (31-73) Lymphocytes (%) (Auto) 47 % (24-48) 12 % (24-48) Monocytes (%) (Auto) 6 % (0-9) 8 % (0-9) Eosinophils (%) (Auto) 3 % (0-3) 0 % (0-3) Basophils (%) (Auto) 1 % (0-3) 0 % (0-3) Neutrophils # (Auto) 4.3 x10^3uL (1.8-7.7) 10.6 x10^3uL (1.8-7.7) Lymphocytes # (Auto) 4.6 x10^3/uL (1.0-4.8) 1.6 x10^3/uL (1.0-4.8) Monocytes # (Auto) 0.6 x10^3/uL (0.0-1.1) 1.0 x10^3/uL (0.0-1.1) Eosinophils # (Auto) 0.3 x10^3/uL (0.0-0.7) 0.0 x10^3/uL (0.0-0.7) Basophils # (Auto) 0.1 x10^3/uL (0.0-0.2) 0.0 x10^3/uL (0.0-0.2) Sodium Level 142 mmol/L (136-145) 142 mmol/L (136-145) Potassium Level 3.6 mmol/L (3.5-5.1) 4.3 mmol/L (3.5-5.1) Chloride Level 102 mmol/L (98-107) 106 mmol/L (98-107) Carbon Dioxide Level 27 mmol/L (21-32) 27 mmol/L (21-32) Anion Gap 13 (6-14) 9 (6-14) Blood Urea Nitrogen 18 mg/dL (8-26) 14 mg/dL (8-26) Creatinine 1.1 mg/dL (0.7-1.3) 1.0 mg/dL (0.7-1.3) Estimated GFR (Cockcroft-Gault) 73.4 99.2 BUN/Creatinine Ratio 16 (6-20) 14 (6-20) Glucose Level 126 mg/dL (70-99) 120 mg/dL (70-99) Calcium Level 9.8 mg/dL (8.5-10.1) 8.6 mg/dL (8.5-10.1) Total Bilirubin 0.3 mg/dL (0.2-1.0) 0.5 mg/dL (0.2-1.0) Aspartate Amino Transf (AST/SGOT) 38 U/L (15-37) 48 U/L (15-37) Alanine Aminotransferase (ALT/SGPT) 41 U/L (16-63) 35 U/L (16-63) Alkaline Phosphatase 107 U/L (46-116) 67 U/L (46-116) Total Protein 8.0 g/dL (6.4-8.2) 6.8 g/dL (6.4-8.2) Albumin 4.1 g/dL (3.4-5.0) 3.3 g/dL (3.4-5.0) Albumin/Globulin Ratio 1.1 (1.0-1.7) 0.9 (1.0-1.7) Lipase 299 U/L (73-393) Ethyl Alcohol Level < 10 mg/dL (0-10) Lactic Acid Level 3.4 mmol/L (0.4-2.0) Urine Collection Type Unknown Urine Color Yellow Urine Clarity Clear Urine pH 8.0 Urine Specific [place] >=1.030 Urine Protein Negative mg/dL (NEG-TRACE) Urine Glucose (UA) Negative mg/dL (NEG) Urine Ketones (Stick) Trace mg/dL (NEG) Urine Blood Negative (NEG) Urine Nitrite Negative (NEG) Urine Bilirubin Negative (NEG) Urine Urobilinogen Dipstick 1.0 mg/dL (0.2 mg/dL) Urine Leukocyte Esterase Negative (NEG) Urine RBC Occ /HPF (0-2) Urine WBC 5-10 /HPF (0-4) Urine Squamous Epithelial Cells Occ /LPF Urine Bacteria 0 /HPF (0-FEW) Urine Mucus Slight /LPF Urine Opiates Screen Pos (NEG) Urine Methadone Screen Neg (NEG) Urine Barbiturates Neg (NEG) Urine Phencyclidine Screen Neg (NEG) Urine Amphetamine/Methamphetamine Pos (NEG) Urine Benzodiazepines Screen Pos (NEG) Urine Cocaine Screen Neg (NEG) Urine Cannabinoids Screen Neg (NEG) Urine Ethyl Alcohol Neg (NEG) Test 06/19/18 09:51 White Blood Count 11.2 x10^3/uL (4.0-11.0) Red Blood Count 5.53 x10^6/uL (4.30-5.70) Hemoglobin 15.9 g/dL (13.0-17.5) Hematocrit 47.4 % (39.0-53.0) Mean Corpuscular Volume 86 fL (79-100) Mean Corpuscular Hemoglobin 29 pg (25-35) Mean Corpuscular Hemoglobin Concent 34 g/dL (31-37) Red Cell Distribution Width 13.3 % (11.5-14.5) Platelet Count 224 x10^3/uL (140-400) Neutrophils (%) (Auto) 71 % (31-73) Lymphocytes (%) (Auto) 20 % (24-48) Monocytes (%) (Auto) 8 % (0-9) Eosinophils (%) (Auto) 0 % (0-3) Basophils (%) (Auto) 1 % (0-3) Neutrophils # (Auto) 7.9 x10^3uL (1.8-7.7) Lymphocytes # (Auto) 2.2 x10^3/uL (1.0-4.8) Monocytes # (Auto) 0.9 x10^3/uL (0.0-1.1) Eosinophils # (Auto) 0.0 x10^3/uL (0.0-0.7) Basophils # (Auto) 0.1 x10^3/uL (0.0-0.2) Sodium Level 136 mmol/L (136-145) Potassium Level 4.2 mmol/L (3.5-5.1) Chloride Level 99 mmol/L (98-107) Carbon Dioxide Level 28 mmol/L (21-32) Anion Gap 9 (6-14) Blood Urea Nitrogen 15 mg/dL (8-26) Creatinine 0.9 mg/dL (0.7-1.3) Estimated GFR (Cockcroft-Gault) 112.0 BUN/Creatinine Ratio 17 (6-20) Glucose Level 90 mg/dL (70-99) Calcium Level 9.1 mg/dL (8.5-10.1) Total Bilirubin 0.7 mg/dL (0.2-1.0) Aspartate Amino Transf (AST/SGOT) 55 U/L (15-37) Alanine Aminotransferase (ALT/SGPT) 37 U/L (16-63) Alkaline Phosphatase 75 U/L (46-116) Total Protein 7.6 g/dL (6.4-8.2) Albumin 3.3 g/dL (3.4-5.0) Albumin/Globulin Ratio 0.8 (1.0-1.7) Laboratory Tests Test 06/19/18 09:51 White Blood Count 11.2 x10^3/uL (4.0-11.0) Red Blood Count 5.53 x10^6/uL (4.30-5.70) Hemoglobin 15.9 g/dL (13.0-17.5) Hematocrit 47.4 % (39.0-53.0) Mean Corpuscular Volume 86 fL (79-100) Mean Corpuscular Hemoglobin 29 pg (25-35) Mean Corpuscular Hemoglobin Concent 34 g/dL (31-37) Red Cell Distribution Width 13.3 % (11.5-14.5) Platelet Count 224 x10^3/uL (140-400) Neutrophils (%) (Auto) 71 % (31-73) Lymphocytes (%) (Auto) 20 % (24-48) Monocytes (%) (Auto) 8 % (0-9) Eosinophils (%) (Auto) 0 % (0-3) Basophils (%) (Auto) 1 % (0-3) Neutrophils # (Auto) 7.9 x10^3uL (1.8-7.7) Lymphocytes # (Auto) 2.2 x10^3/uL (1.0-4.8) Monocytes # (Auto) 0.9 x10^3/uL (0.0-1.1) Eosinophils # (Auto) 0.0 x10^3/uL (0.0-0.7) Basophils # (Auto) 0.1 x10^3/uL (0.0-0.2) Sodium Level 136 mmol/L (136-145) Potassium Level 4.2 mmol/L (3.5-5.1) Chloride Level 99 mmol/L (98-107) Carbon Dioxide Level 28 mmol/L (21-32) Anion Gap 9 (6-14) Blood Urea Nitrogen 15 mg/dL (8-26) Creatinine 0.9 mg/dL (0.7-1.3) Estimated GFR (Cockcroft-Gault) 112.0 BUN/Creatinine Ratio 17 (6-20) Glucose Level 90 mg/dL (70-99) Calcium Level 9.1 mg/dL (8.5-10.1) Total Bilirubin 0.7 mg/dL (0.2-1.0) Aspartate Amino Transf (AST/SGOT) 55 U/L (15-37) Alanine Aminotransferase (ALT/SGPT) 37 U/L (16-63) Alkaline Phosphatase 75 U/L (46-116) Total Protein 7.6 g/dL (6.4-8.2) Albumin 3.3 g/dL (3.4-5.0) Albumin/Globulin Ratio 0.8 (1.0-1.7) Medications Current Medications Fentanyl Citrate (Fentanyl 2ml Vial) 50 mcg 1X ONCE IV Last administered on 06/17/18 12:43; Start 06/17/18 at 12:45; Stop 06/17/18 at 12:49; Status DC Haloperidol Lactate (Haldol Inj) 5 mg 1X ONCE IM Last administered on 06/17/18at 12:43; Start 06/17/18 at 12:45; Stop 06/17/18 at 12:49; Status DC Iohexol (Omnipaque 300 Mg/ml) 75 ml 1X ONCE IV Last administered on 06/17/18at 13:26; Start 06/17/18 at 13:00; Stop 06/17/18 at 13:01; Status DC Ondansetron HCl (Zofran) 4 mg PRN Q8HRS PRN IV NAUSEA/VOMITING; Start 06/17/18 at 14:15; Stop 06/18/18 at 14:14; Status DC Morphine Sulfate (Morphine Sulfate) 6 mg PRN Q2HR PRN IV PAIN Last administered on 06/18/18at 14:11; Start 06/17/18 at 14:15; Stop 06/18/18 at 14:14; Status DC Sodium Chloride 1,000 ml @ 125 mls/hr Q8H IV Last administered on 06/18/18at 10:09; Start 06/17/18 at 14:03; Stop 06/18/18 at 14:02; Status DC Sodium Chloride 500 ml @ 500 mls/hr 1X ONCE IV ; Start 06/17/18 at 14:15; Stop 06/17/18 at 15:14; Status DC Sodium Chloride 1,000 ml @ 1,000 mls/hr 1X ONCE IV Last administered on 06/17/18at 14:29; Start 06/17/18 at 14:15; Stop 06/17/18 at 15:14; Status DC Cefazolin Sodium/ Dextrose 50 ml @ 100 mls/hr 1X ONCE IV Last administered on 06/17/18at 17:15; Start 06/17/18 at 16:00; Stop 06/17/18 at 16:29; Status DC Metronidazole 100 ml @ 100 mls/hr 1X ONCE IV ; Start 06/17/18 at 16:00; Stop 06/17/18 at 16:59; Status DC Sevoflurane (Ultane) 90 ml STK-MED ONCE IH ; Start 06/17/18 at 16:07; Stop 05/21 11/07 at 16:09; Status DC Midazolam HCl (Versed) 2 mg STK-MED ONCE .ROUTE ; Start 06/17/18 at 16:08; Stop 06/17/18 at 16:09; Status DC Fentanyl Citrate (Fentanyl 2ml Vial) 100 mcg STK-MED ONCE .ROUTE ; Start 06/17/18 at 16:08; Stop 06/17/18 at 16:09; Status DC Succinylcholine Chloride (A[place]ine) 200 mg STK-MED ONCE .ROUTE ; Start 06/17/18 at 16:08; Stop 06/17/18 at 16:09; Status DC Glycopyrrolate (Robinul) 1 mg STK-MED ONCE .ROUTE ; Start 06/17/18 at 16:08; Stop 06/17/18 at 16:09; Status DC Neostigmine Methylsulfate (Neostigmine Methylsulfate) 5 mg STK-MED ONCE .ROUTE ; Start 06/17/18 at 16:08; Stop 06/17/18 at 16:09; Status DC Rocuronium [place] (Zemuron) 50 mg STK-MED ONCE .ROUTE ; Start 06/17/18 at 16:08; Stop 06/17/18 at 16:09; Status DC Dexamethasone Sodium Phosphate (Decadron) 4 mg STK-MED ONCE .ROUTE ; Start 06/17/18 at 16:09; Stop 06/17/18 at 16:10; Status DC Propofol 20 ml @ As Directed STK-MED ONCE IV ; Start 06/17/18 at 16:09; Stop 06/17/18 at 16:10; Status DC Lidocaine HCl (Lidocaine Pf 2% Vial) 5 ml STK-MED ONCE .ROUTE ; Start 06/17/18 at 16:09; Stop 06/17/18 at 16:10; Status DC Ondansetron HCl (Zofran) 4 mg STK-MED ONCE .ROUTE ; Start 06/17/18 at 16:09; Stop 06/17/18 at 16:10; Status DC Ketorolac Tromethamine (Toradol For Or Only) 30 mg STK-MED ONCE INJ ; Start 06/17/18 at 16:09; Stop 06/17/18 at 16:10; Status DC Ondansetron HCl (Zofran) 4 mg PRN Q6HRS PRN IV NAUSEA/VOMITING; Start 06/17/18 at 16:15; Stop 06/18/18 at 16:14; Status DC Fentanyl Citrate (Fentanyl 2ml Vial) 25 mcg PRN Q5MIN PRN IV MILD PAIN; Start 06/17/18 at 16:15; Stop 06/18/18 at 16:14; Status DC Fentanyl Citrate (Fentanyl 2ml Vial) 50 mcg PRN Q5MIN PRN IV MODERATE TO SEVERE PAIN Last administered on 06/17/18at 19:45; Start 06/17/18 at 16:15; Stop 06/18/18 at 16:14; Status DC Morphine Sulfate (Morphine Sulfate) 1 mg PRN Q10MIN PRN IV SEVERE PAIN; Start 06/17/18 at 16:15; Stop 06/18/18 at 16:14; Status DC Ringer's Solution 1,000 ml @ 30 mls/hr Q24H IV ; Start 06/17/18 at 16:03; Stop 06/18/18 at 04:02; Status DC Lidocaine HCl (Xylocaine-Mpf 1% 2ml Vial) 2 ml 1X PRN PRN ID IV START; Start 06/17/18 at 16:15; Stop 06/18/18 at 16:14; Status DC Hydromorphone HCl (Dilaudid) 0.5 mg PRN Q10MIN PRN IV SEV PAIN, Second choice; Start 06/17/18 at 16:15; Stop 06/18/18 at 16:14; Status DC Prochlorperazine Edisylate (Compazine) 5 mg PACU PRN PRN IV NAUSEA, MRX1 Last administered on 06/17/18at 19:47; Start 06/17/18 at 16:15; Stop 06/18/18 at 16:14; Status DC Bupivacaine HCl/ Epinephrine Bitart (Sensorcain-Mpf Epi 0.5%-1:[id number]) 30 ml STK-MED ONCE .ROUTE ; Start 06/17/18 at 15:28; Stop 06/17/18 at 16:29; Status DC Famotidine (Pepcid Vial) 20 mg STK-MED ONCE .ROUTE ; Start 06/17/18 at 17:32; Stop 06/17/18 at 17:34; Status DC Midazolam HCl (Versed) 2 mg STK-MED ONCE .ROUTE ; Start 06/17/18 at 17:33; Stop 06/17/18 at 17:34; Status DC Ephedrine Sulfate (ePHEDrine PF IN SALINE SYRINGE) 50 mg STK-MED ONCE IV ; Start 06/17/18 at 17:58; Stop 06/17/18 at 17:59; Status DC Sevoflurane (Ultane) 60 ml STK-MED ONCE IH ; Start 06/17/18 at 18:22; Stop 06/17/18 at 18:23; Status DC Morphine Sulfate (Morphine Sulfate) 6 mg PRN Q6HRS PRN IV PAIN Last administered on 06/19/18at 07:37; Start 06/18/18 at 18:45 Sodium Chloride 1,000 ml @ 100 mls/hr Q10H IV Last administered on 06/19/18at 06:05; Start 06/18/18 at 19:00 Famotidine (Pepcid Vial) 20 mg BID IVP Last administered on 06/19/18at 10:13; Start 06/19/18 at 10:00 Vitals/I & O Vital Sign - Last 24 Hours 06/18/18 06/18/18 06/18/18 06/18/18 14:11 15:00 19:24 19:35 Temp 97.8 98.5 97.8 98.5 Pulse 76 69 Resp 16 18 B/P (MAP) 134/94 (107) 134/98 (110) Pulse Ox 99 98 O2 Delivery Room Air Room Air Room Air Room Air 06/18/18 06/18/18 06/19/18 06/19/18 19:50 23:41 01:31 03:27 Temp 98.2 98.8 98.2 98.8 Pulse 66 73 Resp 18 16 18 B/P (MAP) 140/102 (115) 134/91 (105) Pulse Ox 98 98 O2 Delivery Room Air Room Air Room Air Room Air 06/19/18 06/19/18 06/19/18 06/19/18 07:00 07:30 07:37 08:07 Temp 97.9 97.9 Pulse 82 Resp 18 16 16 B/P (MAP) 136/99 (111) Pulse Ox 95 O2 Delivery Room Air Room Air Room Air Room Air Intake and Output 06/18/18 06/18/18 06/19/18 15:00 23:00 07:00 Intake Total 50 ml Output Total 0 ml 375 ml Balance 50 ml -375 ml GABRIELA ESQUIVEL MD June 19, 2018 12:20
--- NOTE | 2018-06-19 13:06 | PDOC ---
SURGICAL PROGRESS NOTE Subjective no n/v with NG off for 24 hrs Vital Signs Vital Signs Date Time Temp Pulse Resp B/P (MAP) Pulse Ox O2 Delivery O2 Flow Rate FiO2 06/19/18 08:07 16 Room Air 06/19/18 07:00 97.9 82 136/99 (111) 95 97.9 I&O Intake and Output 06/19/18 06:59 Intake Total 50 ml Output Total 375 ml Balance -325 ml Intake Oral 50 ml Output Urine Total 375 ml Gastric Drainage Total 0 ml PATIENT HAS A CHICAS: No General: Alert, No acute distress Abdomen: Soft, Other (dressing intact, NG with no residual with return to suction) Labs Laboratory Tests Test 06/17/18 23:00 06/18/18 03:40 06/19/18 09:51 Urine Collection Type Unknown Urine Color Yellow Urine Clarity Clear Urine pH 8.0 Urine Specific [place] >=1.030 Urine Protein Negative mg/dL (NEG-TRACE) Urine Glucose (UA) Negative mg/dL (NEG) Urine Ketones (Stick) Trace mg/dL (NEG) Urine Blood Negative (NEG) Urine Nitrite Negative (NEG) Urine Bilirubin Negative (NEG) Urine Urobilinogen Dipstick 1.0 mg/dL (0.2 mg/dL) Urine Leukocyte Esterase Negative (NEG) Urine RBC Occ /HPF (0-2) Urine WBC 5-10 /HPF (0-4) Urine Squamous Epithelial Cells Occ /LPF Urine Bacteria 0 /HPF (0-FEW) Urine Mucus Slight /LPF Urine Opiates Screen Pos (NEG) Urine Methadone Screen Neg (NEG) Urine Barbiturates Neg (NEG) Urine Phencyclidine Screen Neg (NEG) Urine Amphetamine/Methamphetamine Pos (NEG) Urine Benzodiazepines Screen Pos (NEG) Urine Cocaine Screen Neg (NEG) Urine Cannabinoids Screen Neg (NEG) Urine Ethyl Alcohol Neg (NEG) White Blood Count 13.2 x10^3/uL (4.0-11.0) 11.2 x10^3/uL (4.0-11.0) Red Blood Count 5.15 x10^6/uL (4.30-5.70) 5.53 x10^6/uL (4.30-5.70) Hemoglobin 14.9 g/dL (13.0-17.5) 15.9 g/dL (13.0-17.5) Hematocrit 44.0 % (39.0-53.0) 47.4 % (39.0-53.0) Mean Corpuscular Volume 85 fL (79-100) 86 fL (79-100) Mean Corpuscular Hemoglobin 29 pg (25-35) 29 pg (25-35) Mean Corpuscular Hemoglobin Concent 34 g/dL (31-37) 34 g/dL (31-37) Red Cell Distribution Width 13.4 % (11.5-14.5) 13.3 % (11.5-14.5) Platelet Count 230 x10^3/uL (140-400) 224 x10^3/uL (140-400) Neutrophils (%) (Auto) 80 % (31-73) 71 % (31-73) Lymphocytes (%) (Auto) 12 % (24-48) 20 % (24-48) Monocytes (%) (Auto) 8 % (0-9) 8 % (0-9) Eosinophils (%) (Auto) 0 % (0-3) 0 % (0-3) Basophils (%) (Auto) 0 % (0-3) 1 % (0-3) Neutrophils # (Auto) 10.6 x10^3uL (1.8-7.7) 7.9 x10^3uL (1.8-7.7) Lymphocytes # (Auto) 1.6 x10^3/uL (1.0-4.8) 2.2 x10^3/uL (1.0-4.8) Monocytes # (Auto) 1.0 x10^3/uL (0.0-1.1) 0.9 x10^3/uL (0.0-1.1) Eosinophils # (Auto) 0.0 x10^3/uL (0.0-0.7) 0.0 x10^3/uL (0.0-0.7) Basophils # (Auto) 0.0 x10^3/uL (0.0-0.2) 0.1 x10^3/uL (0.0-0.2) Sodium Level 142 mmol/L (136-145) 136 mmol/L (136-145) Potassium Level 4.3 mmol/L (3.5-5.1) 4.2 mmol/L (3.5-5.1) Chloride Level 106 mmol/L (98-107) 99 mmol/L (98-107) Carbon Dioxide Level 27 mmol/L (21-32) 28 mmol/L (21-32) Anion Gap 9 (6-14) 9 (6-14) Blood Urea Nitrogen 14 mg/dL (8-26) 15 mg/dL (8-26) Creatinine 1.0 mg/dL (0.7-1.3) 0.9 mg/dL (0.7-1.3) Estimated GFR (Cockcroft-Gault) 99.2 112.0 BUN/Creatinine Ratio 14 (6-20) 17 (6-20) Glucose Level 120 mg/dL (70-99) 90 mg/dL (70-99) Calcium Level 8.6 mg/dL (8.5-10.1) 9.1 mg/dL (8.5-10.1) Total Bilirubin 0.5 mg/dL (0.2-1.0) 0.7 mg/dL (0.2-1.0) Aspartate Amino Transf (AST/SGOT) 48 U/L (15-37) 55 U/L (15-37) Alanine Aminotransferase (ALT/SGPT) 35 U/L (16-63) 37 U/L (16-63) Alkaline Phosphatase 67 U/L (46-116) 75 U/L (46-116) Total Protein 6.8 g/dL (6.4-8.2) 7.6 g/dL (6.4-8.2) Albumin 3.3 g/dL (3.4-5.0) 3.3 g/dL (3.4-5.0) Albumin/Globulin Ratio 0.9 (1.0-1.7) 0.8 (1.0-1.7) Laboratory Tests Test 06/19/18 09:51 White Blood Count 11.2 x10^3/uL (4.0-11.0) Red Blood Count 5.53 x10^6/uL (4.30-5.70) Hemoglobin 15.9 g/dL (13.0-17.5) Hematocrit 47.4 % (39.0-53.0) Mean Corpuscular Volume 86 fL (79-100) Mean Corpuscular Hemoglobin 29 pg (25-35) Mean Corpuscular Hemoglobin Concent 34 g/dL (31-37) Red Cell Distribution Width 13.3 % (11.5-14.5) Platelet Count 224 x10^3/uL (140-400) Neutrophils (%) (Auto) 71 % (31-73) Lymphocytes (%) (Auto) 20 % (24-48) Monocytes (%) (Auto) 8 % (0-9) Eosinophils (%) (Auto) 0 % (0-3) Basophils (%) (Auto) 1 % (0-3) Neutrophils # (Auto) 7.9 x10^3uL (1.8-7.7) Lymphocytes # (Auto) 2.2 x10^3/uL (1.0-4.8) Monocytes # (Auto) 0.9 x10^3/uL (0.0-1.1) Eosinophils # (Auto) 0.0 x10^3/uL (0.0-0.7) Basophils # (Auto) 0.1 x10^3/uL (0.0-0.2) Sodium Level 136 mmol/L (136-145) Potassium Level 4.2 mmol/L (3.5-5.1) Chloride Level 99 mmol/L (98-107) Carbon Dioxide Level 28 mmol/L (21-32) Anion Gap 9 (6-14) Blood Urea Nitrogen 15 mg/dL (8-26) Creatinine 0.9 mg/dL (0.7-1.3) Estimated GFR (Cockcroft-Gault) 112.0 BUN/Creatinine Ratio 17 (6-20) Glucose Level 90 mg/dL (70-99) Calcium Level 9.1 mg/dL (8.5-10.1) Total Bilirubin 0.7 mg/dL (0.2-1.0) Aspartate Amino Transf (AST/SGOT) 55 U/L (15-37) Alanine Aminotransferase (ALT/SGPT) 37 U/L (16-63) Alkaline Phosphatase 75 U/L (46-116) Total Protein 7.6 g/dL (6.4-8.2) Albumin 3.3 g/dL (3.4-5.0) Albumin/Globulin Ratio 0.8 (1.0-1.7) Problem List Problems Medical Problems: (1) Small bowel obstruction Status: Acute Assessment/Plan POD 2 d/c NG start clears Miky Montalvo and Scott to follow in my absence ZUHAIR TORO MD June 19, 2018 13:06
[2018-06-19 15:00] VITALS: BP 139/98
[2018-06-19] MEDS: NICOTINE 14MG PATCH. TD PRN (18:38)
[2018-06-19] MEDS: BENZOCAINE/MENTHOL LOZENGE. PO PRN ×2 (18:38→21:06)
[2018-06-19 19:00] VITALS: BP 149/99
[2018-06-19] MEDS: oxyCODONE/APAP 5/325 1 TAB TABLET PO PRN (21:07)
[2018-06-19 23:00] VITALS: BP 144/99
[2018-06-20] VITALS (7 sets, daily range): BP systolic 112–149; BP diastolic 84–98
[2018-06-20] MEDS: IV NORMAL SALINE 1000ML BAG 1,000 ML IV SCH ×3 (01:00→20:47)
[2018-06-20] MEDS: MORPHINE SULFATE 10 MG/ML VIAL. IV PRN ×6 (01:32→23:44)
[2018-06-20] MEDS: BENZOCAINE/MENTHOL LOZENGE. PO PRN ×3 (01:35→06:46)
[2018-06-20] MEDS: oxyCODONE/APAP 5/325 1 TAB TABLET PO PRN ×5 (02:46→20:46)
[2018-06-20 05:16] LABS: BASO % 1 % (0-3); EOS # 0.3 x10^3/uL (0.0-0.7); EOS % 3 % (0-3); HEMATOCRIT 45.1 % (39.0-53.0); HEMOGLOBIN 15.5 g/dL (13.0-17.5); LYMPH # 2.5 x10^3/uL (1.0-4.8); LYMPH % 28 % (24-48); MEAN CORPUSCULAR HEMOGLOBIN 29 pg (25-35); MEAN CORPUSCULAR HGB CONC 34 g/dL (31-37); MEAN CORPUSCULAR VOLUME 85 fL (79-100); MONO # 0.8 x10^3/uL (0.0-1.1); MONO % 9 % (0-9); NEUT # 5.4 x10^3uL (1.8-7.7); NEUT % 60 % (31-73); PLATELET COUNT 225 x10^3/uL (140-400); RED BLOOD COUNT 5.28 x10^6/uL (4.30-5.70); RED CELL DISTRIBUTION WIDTH 13.2 % (11.5-14.5); WHITE BLOOD COUNT 9.1 x10^3/uL (4.0-11.0)
[2018-06-20 05:34] LABS: ALBUMIN/GLOBULIN RATIO 0.7 (1.0-1.7); CALCIUM 8.8 mg/dL (8.5-10.1); CREATININE 0.8 mg/dL (0.7-1.3); GFR 128.3; POTASSIUM 3.7 mmol/L (3.5-5.1); TOTAL BILIRUBIN 0.7 mg/dL (0.2-1.0); TOTAL PROTEIN 7.2 g/dL (6.4-8.2)
[2018-06-20] MEDS: FAMOTIDINE 20 MG/2 ML VIAL IVP SCH ×2 (09:02→22:34)
--- NOTE | 2018-06-20 09:53 | PDOC ---
PROGRESS NOTES Chief Complaint Chief Complaint DATE OF SURGERY: 06/17/2018 PREOPERATIVE DIAGNOSIS: Small-bowel obstruction with possible ischemia. POSTOPERATIVE DIAGNOSIS: Small bowel obstruction secondary to adhesions with some vascular embarrassment to the small bowel. PROCEDURE: Laparoscopic converted to open exploration with release of small-bowel obstruction and lysis of adhesions. SURGEON: Uriel Queen MD BOX TOE FLANGER STITCHDOWNS: JORDEN Brice. ANESTHESIA: General endotracheal. ESTIMATED BLOOD LOSS: 25. INTRAVENOUS: 800. URINE OUTPUT: 700. INDICATIONS: The patient is a 42-year-old with severe abdominal pain, elevated lactic acid, CT scan suggesting internal hernia with possible threatened bowel. History of Present Illness History of Present Illness VTE Prophylaxis Ordered VTE Prophylaxis Devices: Yes VTE Pharmacological Prophylaxi: Yes Assessment/Plan Assessment/Plan IMPRESSION 1. evidence of small bowel obstruction with transition in the left abdomen, somewhat rotational appearance of mesenteric fat and vasculature in the left abdomen as may be seen with component of mesenteric volvulus. There is associated long segment small bowel wall thickening. There is no significant free fluid or free air. There is distention of stomach. 2. distention of the urinary bladder. 3. lactic acidosis 4. acute abdomen 5. meth abuse hx plan admit [place] FOLLOWING npo iv fluid support iv pain control gi consult progressive ambulation frequent labs 35 min pt exam, chart review,> 50% of time spent with exam, chart review, pt care coordination high risk for recovery given hx substance abuse Vitals Vitals Vital Signs Date Time Temp Pulse Resp B/P (MAP) Pulse Ox O2 Delivery O2 Flow Rate FiO2 06/20/18 08:00 Room Air 06/20/18 08:00 16 06/20/18 07:00 97.8 78 131/94 (106) 99 97.8 Physical Exam General: Alert, Oriented X3, Cooperative, No acute distress Heart: Regular rate, Normal S1, Normal S2, No murmurs Lungs: Clear Abdomen: Soft, Other (dressing dry, clean, intact) Extremities: No cyanosis, No edema Skin: No rashes, No breakdown, No significant lesion Labs LABS Laboratory Tests Test 06/20/18 04:20 White Blood Count 9.1 x10^3/uL (4.0-11.0) Red Blood Count 5.28 x10^6/uL (4.30-5.70) Hemoglobin 15.5 g/dL (13.0-17.5) Hematocrit 45.1 % (39.0-53.0) Mean Corpuscular Volume 85 fL (79-100) Mean Corpuscular Hemoglobin 29 pg (25-35) Mean Corpuscular Hemoglobin Concent 34 g/dL (31-37) Red Cell Distribution Width 13.2 % (11.5-14.5) Platelet Count 225 x10^3/uL (140-400) Neutrophils (%) (Auto) 60 % (31-73) Lymphocytes (%) (Auto) 28 % (24-48) Monocytes (%) (Auto) 9 % (0-9) Eosinophils (%) (Auto) 3 % (0-3) Basophils (%) (Auto) 1 % (0-3) Neutrophils # (Auto) 5.4 x10^3uL (1.8-7.7) Lymphocytes # (Auto) 2.5 x10^3/uL (1.0-4.8) Monocytes # (Auto) 0.8 x10^3/uL (0.0-1.1) Eosinophils # (Auto) 0.3 x10^3/uL (0.0-0.7) Basophils # (Auto) 0.0 x10^3/uL (0.0-0.2) Sodium Level 132 mmol/L (136-145) Potassium Level 3.7 mmol/L (3.5-5.1) Chloride Level 98 mmol/L (98-107) Carbon Dioxide Level 26 mmol/L (21-32) Anion Gap 8 (6-14) Blood Urea Nitrogen 15 mg/dL (8-26) Creatinine 0.8 mg/dL (0.7-1.3) Estimated GFR (Cockcroft-Gault) 128.3 BUN/Creatinine Ratio 19 (6-20) Glucose Level 91 mg/dL (70-99) Calcium Level 8.8 mg/dL (8.5-10.1) Total Bilirubin 0.7 mg/dL (0.2-1.0) Aspartate Amino Transf (AST/SGOT) 39 U/L (15-37) Alanine Aminotransferase (ALT/SGPT) 32 U/L (16-63) Alkaline Phosphatase 60 U/L (46-116) Total Protein 7.2 g/dL (6.4-8.2) Albumin 3.0 g/dL (3.4-5.0) Albumin/Globulin Ratio 0.7 (1.0-1.7) Assessment and Plan Assessmemt and Plan Problems Medical Problems: (1) Small bowel obstruction Status: Acute Comment Review of Relevant I have reviewed the following items brianna (where applicable) has been applied. Labs Laboratory Tests Test 06/19/18 09:51 06/20/18 04:20 White Blood Count 11.2 x10^3/uL (4.0-11.0) 9.1 x10^3/uL (4.0-11.0) Red Blood Count 5.53 x10^6/uL (4.30-5.70) 5.28 x10^6/uL (4.30-5.70) Hemoglobin 15.9 g/dL (13.0-17.5) 15.5 g/dL (13.0-17.5) Hematocrit 47.4 % (39.0-53.0) 45.1 % (39.0-53.0) Mean Corpuscular Volume 86 fL (79-100) 85 fL (79-100) Mean Corpuscular Hemoglobin 29 pg (25-35) 29 pg (25-35) Mean Corpuscular Hemoglobin Concent 34 g/dL (31-37) 34 g/dL (31-37) Red Cell Distribution Width 13.3 % (11.5-14.5) 13.2 % (11.5-14.5) Platelet Count 224 x10^3/uL (140-400) 225 x10^3/uL (140-400) Neutrophils (%) (Auto) 71 % (31-73) 60 % (31-73) Lymphocytes (%) (Auto) 20 % (24-48) 28 % (24-48) Monocytes (%) (Auto) 8 % (0-9) 9 % (0-9) Eosinophils (%) (Auto) 0 % (0-3) 3 % (0-3) Basophils (%) (Auto) 1 % (0-3) 1 % (0-3) Neutrophils # (Auto) 7.9 x10^3uL (1.8-7.7) 5.4 x10^3uL (1.8-7.7) Lymphocytes # (Auto) 2.2 x10^3/uL (1.0-4.8) 2.5 x10^3/uL (1.0-4.8) Monocytes # (Auto) 0.9 x10^3/uL (0.0-1.1) 0.8 x10^3/uL (0.0-1.1) Eosinophils # (Auto) 0.0 x10^3/uL (0.0-0.7) 0.3 x10^3/uL (0.0-0.7) Basophils # (Auto) 0.1 x10^3/uL (0.0-0.2) 0.0 x10^3/uL (0.0-0.2) Sodium Level 136 mmol/L (136-145) 132 mmol/L (136-145) Potassium Level 4.2 mmol/L (3.5-5.1) 3.7 mmol/L (3.5-5.1) Chloride Level 99 mmol/L (98-107) 98 mmol/L (98-107) Carbon Dioxide Level 28 mmol/L (21-32) 26 mmol/L (21-32) Anion Gap 9 (6-14) 8 (6-14) Blood Urea Nitrogen 15 mg/dL (8-26) 15 mg/dL (8-26) Creatinine 0.9 mg/dL (0.7-1.3) 0.8 mg/dL (0.7-1.3) Estimated GFR (Cockcroft-Gault) 112.0 128.3 BUN/Creatinine Ratio 17 (6-20) 19 (6-20) Glucose Level 90 mg/dL (70-99) 91 mg/dL (70-99) Calcium Level 9.1 mg/dL (8.5-10.1) 8.8 mg/dL (8.5-10.1) Total Bilirubin 0.7 mg/dL (0.2-1.0) 0.7 mg/dL (0.2-1.0) Aspartate Amino Transf (AST/SGOT) 55 U/L (15-37) 39 U/L (15-37) Alanine Aminotransferase (ALT/SGPT) 37 U/L (16-63) 32 U/L (16-63) Alkaline Phosphatase 75 U/L (46-116) 60 U/L (46-116) Total Protein 7.6 g/dL (6.4-8.2) 7.2 g/dL (6.4-8.2) Albumin 3.3 g/dL (3.4-5.0) 3.0 g/dL (3.4-5.0) Albumin/Globulin Ratio 0.8 (1.0-1.7) 0.7 (1.0-1.7) Laboratory Tests Test 06/20/18 04:20 White Blood Count 9.1 x10^3/uL (4.0-11.0) Red Blood Count 5.28 x10^6/uL (4.30-5.70) Hemoglobin 15.5 g/dL (13.0-17.5) Hematocrit 45.1 % (39.0-53.0) Mean Corpuscular Volume 85 fL (79-100) Mean Corpuscular Hemoglobin 29 pg (25-35) Mean Corpuscular Hemoglobin Concent 34 g/dL (31-37) Red Cell Distribution Width 13.2 % (11.5-14.5) Platelet Count 225 x10^3/uL (140-400) Neutrophils (%) (Auto) 60 % (31-73) Lymphocytes (%) (Auto) 28 % (24-48) Monocytes (%) (Auto) 9 % (0-9) Eosinophils (%) (Auto) 3 % (0-3) Basophils (%) (Auto) 1 % (0-3) Neutrophils # (Auto) 5.4 x10^3uL (1.8-7.7) Lymphocytes # (Auto) 2.5 x10^3/uL (1.0-4.8) Monocytes # (Auto) 0.8 x10^3/uL (0.0-1.1) Eosinophils # (Auto) 0.3 x10^3/uL (0.0-0.7) Basophils # (Auto) 0.0 x10^3/uL (0.0-0.2) Sodium Level 132 mmol/L (136-145) Potassium Level 3.7 mmol/L (3.5-5.1) Chloride Level 98 mmol/L (98-107) Carbon Dioxide Level 26 mmol/L (21-32) Anion Gap 8 (6-14) Blood Urea Nitrogen 15 mg/dL (8-26) Creatinine 0.8 mg/dL (0.7-1.3) Estimated GFR (Cockcroft-Gault) 128.3 BUN/Creatinine Ratio 19 (6-20) Glucose Level 91 mg/dL (70-99) Calcium Level 8.8 mg/dL (8.5-10.1) Total Bilirubin 0.7 mg/dL (0.2-1.0) Aspartate Amino Transf (AST/SGOT) 39 U/L (15-37) Alanine Aminotransferase (ALT/SGPT) 32 U/L (16-63) Alkaline Phosphatase 60 U/L (46-116) Total Protein 7.2 g/dL (6.4-8.2) Albumin 3.0 g/dL (3.4-5.0) Albumin/Globulin Ratio 0.7 (1.0-1.7) Microbiology 06/17/18 Urine Culture - Final, Complete 06/17/18 Urine Culture Result 1 (JOJO) - Final, Complete Medications Current Medications Fentanyl Citrate (Fentanyl 2ml Vial) 50 mcg 1X ONCE IV Last administered on 06/17/18at 12:43; Start 06/17/18 at 12:45; Stop 06/17/18 at 12:49; Status DC Haloperidol Lactate (Haldol Inj) 5 mg 1X ONCE IM Last administered on 06/17/18at 12:43; Start 06/17/18 at 12:45; Stop 06/17/18 at 12:49; Status DC Iohexol (Omnipaque 300 Mg/ml) 75 ml 1X ONCE IV Last administered on 06/17/18at 13:26; Start 06/17/18 at 13:00; Stop 06/17/18 at 13:01; Status DC Ondansetron HCl (Zofran) 4 mg PRN Q8HRS PRN IV NAUSEA/VOMITING; Start 06/17/18 at 14:15; Stop 06/18/18 at 14:14; Status DC Morphine Sulfate (Morphine Sulfate) 6 mg PRN Q2HR PRN IV PAIN Last administered on 06/18/18at 14:11; Start 06/17/18 at 14:15; Stop 06/18/18 at 14:14; Status DC Sodium Chloride 1,000 ml @ 125 mls/hr Q8H IV Last administered on 06/18/18at 10:09; Start 06/17/18 at 14:03; Stop 06/18/18 at 14:02; Status DC Sodium Chloride 500 ml @ 500 mls/hr 1X ONCE IV ; Start 06/17/18 at 14:15; Stop 06/17/18 at 15:14; Status DC Sodium Chloride 1,000 ml @ 1,000 mls/hr 1X ONCE IV Last administered on 06/17/18at 14:29; Start 06/17/18 at 14:15; Stop 06/17/18 at 15:14; Status DC Cefazolin Sodium/ Dextrose 50 ml @ 100 mls/hr 1X ONCE IV Last administered on 06/17/18at 17:15; Start 06/17/18 at 16:00; Stop 06/17/18 at 16:29; Status DC Metronidazole 100 ml @ 100 mls/hr 1X ONCE IV ; Start 06/17/18 at 16:00; Stop 06/17/18 at 16:59; Status DC Sevoflurane (Ultane) 90 ml STK-MED ONCE IH ; Start 06/17/18 at 16:07; Stop 06/17/18 at 16:09; Status DC Midazolam HCl (Versed) 2 mg STK-MED ONCE .ROUTE ; Start 06/17/18 at 16:08; Stop 06/17/18 at 16:09; Status DC Fentanyl Citrate (Fentanyl 2ml Vial) 100 mcg STK-MED ONCE .ROUTE ; Start 06/17/18 at 16:08; Stop 06/17/18 at 16:09; Status DC Succinylcholine Chloride (Anectine) 200 mg STK-MED ONCE .ROUTE ; Start 06/17/18 at 16:08; Stop 06/17/18 at 16:09; Status DC Glycopyrrolate (Robinul) 1 mg STK-MED ONCE .ROUTE ; Start 06/17/18 at 16:08; Stop 06/17/18 at 16:09; Status DC Neostigmine Methylsulfate (Neostigmine Methylsulfate) 5 mg STK-MED ONCE .ROUTE ; Start 06/17/18 at 16:08; Stop 06/17/18 at 16:09; Status DC Rocuronium [place] (Zemuron) 50 mg STK-MED ONCE .ROUTE ; Start 06/17/18 at 16:08; Stop 06/17/18 at 16:09; Status DC Dexamethasone Sodium Phosphate (Decadron) 4 mg STK-MED ONCE .ROUTE ; Start 06/17/18 at 16:09; Stop 06/17/18 at 16:10; Status DC Propofol 20 ml @ As Directed STK-MED ONCE IV ; Start 06/17/18 at 16:09; Stop 06/17/18 at 16:10; Status DC Lidocaine HCl (Lidocaine Pf 2% Vial) 5 ml STK-MED ONCE .ROUTE ; Start 06/17/18 at 16:09; Stop 06/17/18 at 16:10; Status DC Ondansetron HCl (Zofran) 4 mg STK-MED ONCE .ROUTE ; Start 06/17/18 at 16:09; Stop 06/17/18 at 16:10; Status DC Ketorolac Tromethamine (Toradol For Or Only) 30 mg STK-MED ONCE INJ ; Start 06/17/18 at 16:09; Stop 06/17/18 at 16:10; Status DC Ondansetron HCl (Zofran) 4 mg PRN Q6HRS PRN IV NAUSEA/VOMITING; Start 06/17/18 at 16:15; Stop 06/18/18 at 16:14; Status DC Fentanyl Citrate (Fentanyl 2ml Vial) 25 mcg PRN Q5MIN PRN IV MILD PAIN; Start 06/17/18 at 16:15; Stop 06/18/18 at 16:14; Status DC Fentanyl Citrate (Fentanyl 2ml Vial) 50 mcg PRN Q5MIN PRN IV MODERATE TO SEVERE PAIN Last administered on 06/17/18at 19:45; Start 06/17/18 at 16:15; Stop 9 at 16:14; Status DC Morphine Sulfate (Morphine Sulfate) 1 mg PRN Q10MIN PRN IV SEVERE PAIN; Start 06/17/18 at 16:15; Stop 06/18/18 at 16:14; Status DC Ringer's Solution 1,000 ml @ 30 mls/hr Q24H IV ; Start 06/17/18 at 16:03; Stop 06/18/18 at 04:02; Status DC Lidocaine HCl (Xylocaine-Mpf 1% 2ml Vial) 2 ml 1X PRN PRN ID IV START; Start 06/17/18 at 16:15; Stop 06/18/18 at 16:14; Status DC Hydromorphone HCl (Dilaudid) 0.5 mg PRN Q10MIN PRN IV SEV PAIN, Second choice; Start 06/17/18 at 16:15; Stop 06/18/18 at 16:14; Status DC Prochlorperazine Edisylate (Compazine) 5 mg PACU PRN PRN IV NAUSEA, MRX1 Last administered on 06/17/18at 19:47; Start 06/17/18 at 16:15; Stop 06/18/18 at 16:14; Status DC Bupivacaine HCl/ Epinephrine Bitart (Sensorcain-Mpf Epi 0.5%-[id number]) 30 ml STK-MED ONCE .ROUTE ; Start 06/17/18 at 15:28; Stop 06/17/18 at 16:29; Status DC Famotidine (Pepcid Vial) 20 mg STK-MED ONCE .ROUTE ; Start 06/17/18 at 17:32; Stop 06/17/18 at 17:34; Status DC Midazolam HCl (Versed) 2 mg STK-MED ONCE .ROUTE ; Start 06/17/18 at 17:33; Stop 06/17/18 at 17:34; Status DC Ephedrine Sulfate (ePHEDrine PF IN SALINE SYRINGE) 50 mg STK-MED ONCE IV ; Start 06/17/18 at 17:58; Stop 06/17/18 at 17:59; Status DC Sevoflurane (Ultane) 60 ml STK-MED ONCE IH ; Start 06/17/18 at 18:22; Stop 06/17/18 at 18:23; Status DC Morphine Sulfate (Morphine Sulfate) 6 mg PRN Q6HRS PRN IV PAIN Last adminis tered on 06/19/18at 13:43; Start 06/18/18 at 18:45; Stop 06/19/18 at 19:44; Status DC Sodium Chloride 1,000 ml @ 100 mls/hr Q10H IV Last administered on 06/19/18at 21:07; Start 06/18/18 at 19:00 Famotidine (Pepcid Vial) 20 mg BID IVP Last administered on 06/20/18at 09:02; Start 06/19/18 at 10:00 Oxycodone/ Acetaminophen (Percocet 5/325) 1 tab PRN Q4HRS PRN PO PAIN Last administered on 06/20/18 06:47; Start 06/19/18 at 12:45 Throat Lozenges (Cepacol Sore Throat Lozenge) 1 kayli PRN Q2HRS PRN PO SORE THROAT Last administered on 06/20/18 06:46; Start 06/19/18 at 14:00 Nicotine (Nicoderm Cq 14mg) 1 patch PRN DAILY PRN TD SMOKING CESSATION Last administered on 06/19/18at 18:38; Start 06/19/18 at 14:00 Morphine Sulfate (Morphine Sulfate) 8 mg PRN Q4HRS PRN IV MODERATE TO SEVERE PAIN Last administered on 06/20/18 05:52; Start 06/19/18 at 19:45 Vitals/I & O Vital Sign - Last 24 Hours 06/19/18 06/19/18 06/19/18 06/19/18 11:00 13:43 15:00 19:00 Temp 98.4 98.6 98.6 98.4 98.6 98.6 Pulse 63 72 75 Resp 18 16 16 16 B/P (MAP) 131/86 (101) 139/98 (112) 149/99 (116) Pulse Ox 99 98 97 O2 Delivery Room Air Room Air Room Air Room Air 06/19/18 06/19/18 06/19/18 06/19/18 19:45 19:51 21:07 23:00 Temp 98.6 98.6 Pulse 80 Resp 16 16 18 B/P (MAP) 144/99 (114) Pulse Ox 97 O2 Delivery Room Air Room Air Room Air Room Air 06/20/18 06/20/18 06/20/18 06/20/18 01:32 02:46 03:00 05:52 Temp 98.9 98.9 Pulse 72 Resp 16 18 18 16 B/P (MAP) 149/98 (115) Pulse Ox 99 O2 Delivery Room Air Room Air Room Air Room Air 06/20/18 06/20/18 06/20/18 06/20/18 06:47 06:49 07:00 08:00 Temp 97.8 97.8 Pulse 78 Resp 16 16 18 16 B/P (MAP) 131/94 (106) Pulse Ox 99 O2 Delivery Room Air Room Air Room Air Room Air 06/20/18 08:00 O2 Delivery Room Air Intake and Output 06/19/18 06/19/18 06/20/18 14:59 22:59 06:59 Intake Total 1530 ml Output Total 900 ml 600 ml Balance 630 ml -600 ml GABRIELA ESQUIVEL MD June 20, 2018 09:53
--- NOTE | 2018-06-20 11:44 | PDOC ---
Subjective: Subjective: Better today - tolerating clears w/o n/v or increased abd pain. No flatus or stool. Wants a soft diet. Objective: Vital Signs: Vital Signs Date Time Temp Pulse Resp B/P (MAP) Pulse Ox O2 Delivery O2 Flow Rate FiO2 06/20/18 10:58 97.7 71 18 138/94 (109) 97 Room Air 97.7 PE: GEN: NAD LUNGS: clear HEART: RRR ABD: still quiet NEURO/PSYCH: A & O 3 - more awake and more talkative A/P: S/p release of SBO and MODESTO -- Feels better, asking to advance diet - defer to surgery. JOHNATHAN EVANS June 20, 2018 11:43
--- NOTE | 2018-06-20 12:08 | PDOC ---
SURGICAL PROGRESS NOTE Subjective taking clears well no flatus Vital Signs Vital Signs Date Time Temp Pulse Resp B/P (MAP) Pulse Ox O2 Delivery O2 Flow Rate FiO2 06/20/18 11:51 16 Room Air 06/20/18 10:58 97.7 71 138/94 (109) 97 97.7 I&O Intake and Output 06/20/18 06:59 Intake Total 1530 ml Output Total 1500 ml Balance 30 ml Intake Oral 530 ml IV Total 1000 ml Output Urine Total 1500 ml # Voids 4 General: Alert, Oriented X3, Cooperative, No acute distress Abdomen: Soft, Other (dressing dry) Labs Laboratory Tests Test 06/19/18 09:51 06/20/18 04:20 White Blood Count 11.2 x10^3/uL (4.0-11.0) 9.1 x10^3/uL (4.0-11.0) Red Blood Count 5.53 x10^6/uL (4.30-5.70) 5.28 x10^6/uL (4.30-5.70) Hemoglobin 15.9 g/dL (13.0-17.5) 15.5 g/dL (13.0-17.5) Hematocrit 47.4 % (39.0-53.0) 45.1 % (39.0-53.0) Mean Corpuscular Volume 86 fL (79-100) 85 fL (79-100) Mean Corpuscular Hemoglobin 29 pg (25-35) 29 pg (25-35) Mean Corpuscular Hemoglobin Concent 34 g/dL (31-37) 34 g/dL (31-37) Red Cell Distribution Width 13.3 % (11.5-14.5) 13.2 % (11.5-14.5) Platelet Count 224 x10^3/uL (140-400) 225 x10^3/uL (140-400) Neutrophils (%) (Auto) 71 % (31-73) 60 % (31-73) Lymphocytes (%) (Auto) 20 % (24-48) 28 % (24-48) Monocytes (%) (Auto) 8 % (0-9) 9 % (0-9) Eosinophils (%) (Auto) 0 % (0-3) 3 % (0-3) Basophils (%) (Auto) 1 % (0-3) 1 % (0-3) Neutrophils # (Auto) 7.9 x10^3uL (1.8-7.7) 5.4 x10^3uL (1.8-7.7) Lymphocytes # (Auto) 2.2 x10^3/uL (1.0-4.8) 2.5 x10^3/uL (1.0-4.8) Monocytes # (Auto) 0.9 x10^3/uL (0.0-1.1) 0.8 x10^3/uL (0.0-1.1) Eosinophils # (Auto) 0.0 x10^3/uL (0.0-0.7) 0.3 x10^3/uL (0.0-0.7) Basophils # (Auto) 0.1 x10^3/uL (0.0-0.2) 0.0 x10^3/uL (0.0-0.2) Sodium Level 136 mmol/L (136-145) 132 mmol/L (136-145) Potassium Level 4.2 mmol/L (3.5-5.1) 3.7 mmol/L (3.5-5.1) Chloride Level 99 mmol/L (98-107) 98 mmol/L (98-107) Carbon Dioxide Level 28 mmol/L (21-32) 26 mmol/L (21-32) Anion Gap 9 (6-14) 8 (6-14) Blood Urea Nitrogen 15 mg/dL (8-26) 15 mg/dL (8-26) Creatinine 0.9 mg/dL (0.7-1.3) 0.8 mg/dL (0.7-1.3) Estimated GFR (Cockcroft-Gault) 112.0 128.3 BUN/Creatinine Ratio 17 (6-20) 19 (6-20) Glucose Level 90 mg/dL (70-99) 91 mg/dL (70-99) Calcium Level 9.1 mg/dL (8.5-10.1) 8.8 mg/dL (8.5-10.1) Total Bilirubin 0.7 mg/dL (0.2-1.0) 0.7 mg/dL (0.2-1.0) Aspartate Amino Transf (AST/SGOT) 55 U/L (15-37) 39 U/L (15-37) Alanine Aminotransferase (ALT/SGPT) 37 U/L (16-63) 32 U/L (16-63) Alkaline Phosphatase 75 U/L (46-116) 60 U/L (46-116) Total Protein 7.6 g/dL (6.4-8.2) 7.2 g/dL (6.4-8.2) Albumin 3.3 g/dL (3.4-5.0) 3.0 g/dL (3.4-5.0) Albumin/Globulin Ratio 0.8 (1.0-1.7) 0.7 (1.0-1.7) Laboratory Tests Test 06/20/18 04:20 White Blood Count 9.1 x10^3/uL (4.0-11.0) Red Blood Count 5.28 x10^6/uL (4.30-5.70) Hemoglobin 15.5 g/dL (13.0-17.5) Hematocrit 45.1 % (39.0-53.0) Mean Corpuscular Volume 85 fL (79-100) Mean Corpuscular Hemoglobin 29 pg (25-35) Mean Corpuscular Hemoglobin Concent 34 g/dL (31-37) Red Cell Distribution Width 13.2 % (11.5-14.5) Platelet Count 225 x10^3/uL (140-400) Neutrophils (%) (Auto) 60 % (31-73) Lymphocytes (%) (Auto) 28 % (24-48) Monocytes (%) (Auto) 9 % (0-9) Eosinophils (%) (Auto) 3 % (0-3) Basophils (%) (Auto) 1 % (0-3) Neutrophils # (Auto) 5.4 x10^3uL (1.8-7.7) Lymphocytes # (Auto) 2.5 x10^3/uL (1.0-4.8) Monocytes # (Auto) 0.8 x10^3/uL (0.0-1.1) Eosinophils # (Auto) 0.3 x10^3/uL (0.0-0.7) Basophils # (Auto) 0.0 x10^3/uL (0.0-0.2) Sodium Level 132 mmol/L (136-145) Potassium Level 3.7 mmol/L (3.5-5.1) Chloride Level 98 mmol/L (98-107) Carbon Dioxide Level 26 mmol/L (21-32) Anion Gap 8 (6-14) Blood Urea Nitrogen 15 mg/dL (8-26) Creatinine 0.8 mg/dL (0.7-1.3) Estimated GFR (Cockcroft-Gault) 128.3 BUN/Creatinine Ratio 19 (6-20) Glucose Level 91 mg/dL (70-99) Calcium Level 8.8 mg/dL (8.5-10.1) Total Bilirubin 0.7 mg/dL (0.2-1.0) Aspartate Amino Transf (AST/SGOT) 39 U/L (15-37) Alanine Aminotransferase (ALT/SGPT) 32 U/L (16-63) Alkaline Phosphatase 60 U/L (46-116) Total Protein 7.2 g/dL (6.4-8.2) Albumin 3.0 g/dL (3.4-5.0) Albumin/Globulin Ratio 0.7 (1.0-1.7) Problem List Problems Medical Problems: (1) Small bowel obstruction Status: Acute Assessment/Plan await improved bowel function prior to advancing diet PEACE BOWER APRN June 20, 2018 12:08
--- NOTE | 2018-06-20 15:08 | NUR ---
SW following for discharge planning. Discussed with RN, pt on clear liquid diet. SW met with pt to give self pay resources, pt denied any further needs for SW. RN notified.
[2018-06-21] MEDS: oxyCODONE/APAP 5/325 1 TAB TABLET PO PRN ×5 (01:41→22:10)
[2018-06-21 03:00] VITALS: BP 137/88
[2018-06-21] MEDS: MORPHINE SULFATE 10 MG/ML VIAL. IV PRN ×5 (05:28→22:10)
[2018-06-21] MEDS: IV NORMAL SALINE 1000ML BAG 1,000 ML IV SCH ×2 (05:29→16:36)
[2018-06-21 07:00] VITALS: BP 130/93
[2018-06-21] MEDS: FAMOTIDINE 20 MG/2 ML VIAL IVP SCH ×2 (09:19→20:14)
[2018-06-21] MEDS: NICOTINE 14MG PATCH. TD PRN (09:21)
--- NOTE | 2018-06-21 09:44 | PDOC ---
SURGICAL PROGRESS NOTE Subjective more pain nausea, no significant flatus more bloated Vital Signs Vital Signs Date Time Temp Pulse Resp B/P (MAP) Pulse Ox O2 Delivery O2 Flow Rate FiO2 06/21/18 09:17 Room Air 06/21/18 09:15 98 10.0 06/21/18 07:00 97.8 72 18 130/93 (105) 97.8 I&O Intake and Output 06/21/18 07:00 Intake Total 625 ml Balance 625 ml Intake Oral 625 ml # Voids 7 General: Alert, Oriented X3, Cooperative, No acute distress Abdomen: Other (soft, mild distention ) Labs Laboratory Tests Test 06/19/18 09:51 06/20/18 04:20 White Blood Count 11.2 x10^3/uL (4.0-11.0) 9.1 x10^3/uL (4.0-11.0) Red Blood Count 5.53 x10^6/uL (4.30-5.70) 5.28 x10^6/uL (4.30-5.70) Hemoglobin 15.9 g/dL (13.0-17.5) 15.5 g/dL (13.0-17.5) Hematocrit 47.4 % (39.0-53.0) 45.1 % (39.0-53.0) Mean Corpuscular Volume 86 fL (79-100) 85 fL (79-100) Mean Corpuscular Hemoglobin 29 pg (25-35) 29 pg (25-35) Mean Corpuscular Hemoglobin Concent 34 g/dL (31-37) 34 g/dL (31-37) Red Cell Distribution Width 13.3 % (11.5-14.5) 13.2 % (11.5-14.5) Platelet Count 224 x10^3/uL (140-400) 225 x10^3/uL (140-400) Neutrophils (%) (Auto) 71 % (31-73) 60 % (31-73) Lymphocytes (%) (Auto) 20 % (24-48) 28 % (24-48) Monocytes (%) (Auto) 8 % (0-9) 9 % (0-9) Eosinophils (%) (Auto) 0 % (0-3) 3 % (0-3) Basophils (%) (Auto) 1 % (0-3) 1 % (0-3) Neutrophils # (Auto) 7.9 x10^3uL (1.8-7.7) 5.4 x10^3uL (1.8-7.7) Lymphocytes # (Auto) 2.2 x10^3/uL (1.0-4.8) 2.5 x10^3/uL (1.0-4.8) Monocytes # (Auto) 0.9 x10^3/uL (0.0-1.1) 0.8 x10^3/uL (0.0-1.1) Eosinophils # (Auto) 0.0 x10^3/uL (0.0-0.7) 0.3 x10^3/uL (0.0-0.7) Basophils # (Auto) 0.1 x10^3/uL (0.0-0.2) 0.0 x10^3/uL (0.0-0.2) Sodium Level 136 mmol/L (136-145) 132 mmol/L (136-145) Potassium Level 4.2 mmol/L (3.5-5.1) 3.7 mmol/L (3.5-5.1) Chloride Level 99 mmol/L (98-107) 98 mmol/L (98-107) Carbon Dioxide Level 28 mmol/L (21-32) 26 mmol/L (21-32) Anion Gap 9 (6-14) 8 (6-14) Blood Urea Nitrogen 15 mg/dL (8-26) 15 mg/dL (8-26) Creatinine 0.9 mg/dL (0.7-1.3) 0.8 mg/dL (0.7-1.3) Estimated GFR (Cockcroft-Gault) 112.0 128.3 BUN/Creatinine Ratio 17 (6-20) 19 (6-20) Glucose Level 90 mg/dL (70-99) 91 mg/dL (70-99) Calcium Level 9.1 mg/dL (8.5-10.1) 8.8 mg/dL (8.5-10.1) Total Bilirubin 0.7 mg/dL (0.2-1.0) 0.7 mg/dL (0.2-1.0) Aspartate Amino Transf (AST/SGOT) 55 U/L (15-37) 39 U/L (15-37) Alanine Aminotransferase (ALT/SGPT) 37 U/L (16-63) 32 U/L (16-63) Alkaline Phosphatase 75 U/L (46-116) 60 U/L (46-116) Total Protein 7.6 g/dL (6.4-8.2) 7.2 g/dL (6.4-8.2) Albumin 3.3 g/dL (3.4-5.0) 3.0 g/dL (3.4-5.0) Albumin/Globulin Ratio 0.8 (1.0-1.7) 0.7 (1.0-1.7) Problem List Problems Medical Problems: (1) Small bowel obstruction Status: Acute Assessment/Plan s/p xlap, release obstruction await improved bowel function, hold diet until improved PEACE BOWER APRN June 21, 2018 09:44
--- NOTE | 2018-06-21 10:20 | PDOC ---
PROGRESS NOTES Chief Complaint Chief Complaint DATE OF SURGERY: 06/17/2018 PREOPERATIVE DIAGNOSIS: Small-bowel obstruction with possible ischemia. POSTOPERATIVE DIAGNOSIS: Small bowel obstruction secondary to adhesions with some vascular embarrassment to the small bowel. PROCEDURE: Laparoscopic converted to open exploration with release of small-bowel obstruction and lysis of adhesions. SURGEON: Uriel Queen MD [employer]: JORDEN Brice. ANESTHESIA: General endotracheal. ESTIMATED BLOOD LOSS: 25. INTRAVENOUS: 800. URINE OUTPUT: 700. INDICATIONS: The patient is a 42-year-old with severe abdominal pain, elevated lactic acid, CT scan suggesting internal hernia with possible threatened bowel. History of Present Illness History of Present Illness VTE Prophylaxis Ordered VTE Prophylaxis Devices: Yes VTE Pharmacological Prophylaxi: Yes Assessment/Plan Assessment/Plan IMPRESSION 1. evidence of small bowel obstruction with transition in the left abdomen, somewhat rotational appearance of mesenteric fat and vasculature in the left abdomen as may be seen with component of mesenteric volvulus. There is associated long segment small bowel wall thickening. There is no significant free fluid or free air. There is distention of stomach. 2. distention of the urinary bladder. 3. lactic acidosis 4. acute abdomen 5. meth abuse hx plan admit [place] FOLLOWING npo iv fluid support iv pain control gi consult progressive ambulation frequent labs PAIN WORSE 06/21 MADE NPO 35 min pt exam, chart review,> 50% of time spent with exam, chart review, pt care coordination high risk for recovery given hx substance abuse Vitals Vitals Vital Signs Date Time Temp Pulse Resp B/P (MAP) Pulse Ox O2 Delivery O2 Flow Rate FiO2 06/21/18 09:17 Room Air 06/21/18 09:15 98 10.0 06/21/18 07:00 97.8 72 18 130/93 (105) 97.8 Physical Exam General: Alert, Oriented X3, Cooperative, No acute distress Heart: Regular rate, Normal S1, Normal S2, No murmurs Lungs: Clear Abdomen: Other (soft, mild distention ) Extremities: No cyanosis, No edema Skin: No rashes, No breakdown, No significant lesion Assessment and Plan Assessmemt and Plan Problems Medical Problems: (1) Small bowel obstruction Status: Acute Comment Review of Relevant I have reviewed the following items brianna (where applicable) has been applied. Labs Laboratory Tests Test 06/20/18 04:20 White Blood Count 9.1 x10^3/uL (4.0-11.0) Red Blood Count 5.28 x10^6/uL (4.30-5.70) Hemoglobin 15.5 g/dL (13.0-17.5) Hematocrit 45.1 % (39.0-53.0) Mean Corpuscular Volume 85 fL (79-100) Mean Corpuscular Hemoglobin 29 pg (25-35) Mean Corpuscular Hemoglobin Concent 34 g/dL (31-37) Red Cell Distribution Width 13.2 % (11.5-14.5) Platelet Count 225 x10^3/uL (140-400) Neutrophils (%) (Auto) 60 % (31-73) Lymphocytes (%) (Auto) 28 % (24-48) Monocytes (%) (Auto) 9 % (0-9) Eosinophils (%) (Auto) 3 % (0-3) Basophils (%) (Auto) 1 % (0-3) Neutrophils # (Auto) 5.4 x10^3uL (1.8-7.7) Lymphocytes # (Auto) 2.5 x10^3/uL (1.0-4.8) Monocytes # (Auto) 0.8 x10^3/uL (0.0-1.1) Eosinophils # (Auto) 0.3 x10^3/uL (0.0-0.7) Basophils # (Auto) 0.0 x10^3/uL (0.0-0.2) Sodium Level 132 mmol/L (136-145) Potassium Level 3.7 mmol/L (3.5-5.1) Chloride Level 98 mmol/L (98-107) Carbon Dioxide Level 26 mmol/L (21-32) Anion Gap 8 (6-14) Blood Urea Nitrogen 15 mg/dL (8-26) Creatinine 0.8 mg/dL (0.7-1.3) Estimated GFR (Cockcroft-Gault) 128.3 BUN/Creatinine Ratio 19 (6-20) Glucose Level 91 mg/dL (70-99) Calcium Level 8.8 mg/dL (8.5-10.1) Total Bilirubin 0.7 mg/dL (0.2-1.0) Aspartate Amino Transf (AST/SGOT) 39 U/L (15-37) Alanine Aminotransferase (ALT/SGPT) 32 U/L (16-63) Alkaline Phosphatase 60 U/L (46-116) Total Protein 7.2 g/dL (6.4-8.2) Albumin 3.0 g/dL (3.4-5.0) Albumin/Globulin Ratio 0.7 (1.0-1.7) Microbiology 06/17/18 Urine Culture - Final, Complete 06/17/18 Urine Culture Result 1 (JOJO) - Final, Complete Medications Current Medications Fentanyl Citrate (Fentanyl 2ml Vial) 50 mcg 1X ONCE IV Last administered on 06/17/18at 12:43; Start 06/17/18 at 12:45; Stop 06/17/18 at 12:49; Status DC Haloperidol Lactate (Haldol Inj) 5 mg 1X ONCE IM Last administered on 06/17/18at 12:43; Start 06/17/18 at 12:45; Stop 06/17/18 at 12:49; Status DC Iohexol (Omnipaque 300 Mg/ml) 75 ml 1X ONCE IV Last administered on 06/17/18at 13:26; Start 06/17/18 at 13:00; Stop 06/17/18 at 13:01; Status DC Ondansetron HCl (Zofran) 4 mg PRN Q8HRS PRN IV NAUSEA/VOMITING; Start 06/17/18 at 14:15; Stop 06/18/18 at 14:14; Status DC Morphine Sulfate (Morphine Sulfate) 6 mg PRN Q2HR PRN IV PAIN Last administered on 06/18/18at 14:11; Start 06/17/18 at 14:15; Stop 06/18/18 at 14:14; Status DC Sodium Chloride 1,000 ml @ 125 mls/hr Q8H IV Last administered on 06/18/18at 10:09; Start 06/17/18 at 14:03; Stop 06/18/18 at 14:02; Status DC Sodium Chloride 500 ml @ 500 mls/hr 1X ONCE IV ; Start 06/17/18 at 14:15; Stop 06/17/18 at 15:14; Status DC Sodium Chloride 1,000 ml @ 1,000 mls/hr 1X ONCE IV Last administered on 06/17/18at 14:29; Start 06/17/18 at 14:15; Stop 06/17/18 at 15:14; Status DC Cefazolin Sodium/ Dextrose 50 ml @ 100 mls/hr 1X ONCE IV Last administered on 06/17/18at 17:15; Start 06/17/18 at 16:00; Stop 06/17/18 at 16:29; Status DC Metronidazole 100 ml @ 100 mls/hr 1X ONCE IV ; Start 06/17/18 at 16:00; Stop 06/17/18 at 16:59; Status DC Sevoflurane (Ultane) 90 ml STK-MED ONCE IH ; Start 06/17/18 at 16:07; Stop 06/17/18 at 16:09; Status DC Midazolam HCl (Versed) 2 mg STK-MED ONCE .ROUTE ; Start 06/17/18 at 16:08; Stop 06/17/18 at 16:09; Status DC Fentanyl Citrate (Fentanyl 2ml Vial) 100 mcg STK-MED ONCE .ROUTE ; Start 06/17/18 at 16:08; Stop 06/17/18 at 16:09; Status DC Succinylcholine Chloride (Anectine) 200 mg STK-MED ONCE .ROUTE ; Start 06/17/18 at 16:08; Stop 06/17/18 at 16:09; Status DC Glycopyrrolate (Robinul) 1 mg STK-MED ONCE .ROUTE ; Start 06/17/18 at 16:08; Stop 06/17/18 at 16:09; Status DC Neostigmine Methylsulfate (Neostigmine Methylsulfate) 5 mg STK-MED ONCE .ROUTE ; Start 06/17/18 at 16:08; Stop 06/17/18 at 16:09; Status DC Rocuronium [place] (Zemuron) 50 mg STK-MED ONCE .ROUTE ; Start 06/17/18 at 16:08; Stop 06/17/18 at 16:09; Status DC Dexamethasone Sodium Phosphate (Decadron) 4 mg STK-MED ONCE .ROUTE ; Start 06/17/18 at 16:09; Stop 06/17/18 at 16:10; Status DC Propofol 20 ml @ As Directed STK-MED ONCE IV ; Start 06/17/18 at 16:09; Stop 06/17/18 at 16:10; Status DC Lidocaine HCl (Lidocaine Pf 2% Vial) 5 ml STK-MED ONCE .ROUTE ; Start 06/17/18 at 16:09; Stop 06/17/18 at 16:10; Status DC Ondansetron HCl (Zofran) 4 mg STK-MED ONCE .ROUTE ; Start 06/17/18 at 16:09; Stop 06/17/18 at 16:10; Status DC Ketorolac Tromethamine (Toradol For Or Only) 30 mg STK-MED ONCE INJ ; Start 06/17/18 at 16:09; Stop 06/17/18 at 16:10; Status DC Ondansetron HCl (Zofran) 4 mg PRN Q6HRS PRN IV NAUSEA/VOMITING; Start 06/17/18 at 16:15; Stop 06/18/18 at 16:14; Status DC Fentanyl Citrate (Fentanyl 2ml Vial) 25 mcg PRN Q5MIN PRN IV MILD PAIN; Start 06/17/18 at 16:15; Stop 06/18/18 at 16:14; Status DC Fentanyl Citrate (Fentanyl 2ml Vial) 50 mcg PRN Q5MIN PRN IV MODERATE TO SEVERE PAIN Last administered on 06/17/18at 19:45; Start 06/17/18 at 16:15; Stop 06/18/18 at 16:14; Status DC Morphine Sulfate (Morphine Sulfate) 1 mg PRN Q10MIN PRN IV SEVERE PAIN; Start 06/17/18 at 16:15; Stop 06/18/18 at 16:14; Status DC Ringer's Solution 1,000 ml @ 30 mls/hr Q24H IV ; Start 06/17/18 at 16:03; Stop 06/18/18 at 04:02; Status DC Lidocaine HCl (Xylocaine-Mpf 1% 2ml Vial) 2 ml 1X PRN PRN ID IV START; Start 06/17/18 at 16:15; Stop 06/18/18 at 16:14; Status DC Hydromorphone HCl (Dilaudid) 0.5 mg PRN Q10MIN PRN IV SEV PAIN, Second choice; Start 06/17/18 at 16:15; Stop 06/18/18 at 16:14; Status DC Prochlorperazine Edisylate (Compazine) 5 mg PACU PRN PRN IV NAUSEA, MRX1 Last administered on 06/17/18at 19:47; Start 06/17/18 at 16:15; Stop 06/18/18 at 16:14 ; Status DC Bupivacaine HCl/ Epinephrine Bitart (Sensorcain-Mpf Epi 0.5%-[id number]) 30 ml STK-MED ONCE .ROUTE ; Start 06/17/18 at 15:28; Stop 06/17/18 at 16:29; Status DC Famotidine (Pepcid Vial) 20 mg STK-MED ONCE .ROUTE ; Start 06/17/18 at 17:32; Stop 06/17/18 at 17:34; Status DC Midazolam HCl (Versed) 2 mg STK-MED ONCE .ROUTE ; Start 06/17/18 at 17:33; Stop 06/17/18 at 17:34; Status DC Ephedrine Sulfate (ePHEDrine PF IN SALINE SYRINGE) 50 mg STK-MED ONCE IV ; Start 06/17/18 at 17:58; Stop 06/17/18 at 17:59; Status DC Sevoflurane (Ultane) 60 ml STK-MED ONCE IH ; Start 06/17/18 at 18:22; Stop 06/17/18 at 18:23; Status DC Morphine Sulfate (Morphine Sulfate) 6 mg PRN Q6HRS PRN IV PAIN Last administered on 06/19/18at 13:43; Start 06/18/18 at 18:45; Stop 06/19/18 at 19:44; Status DC Sodium Chloride 1,000 ml @ 100 mls/hr Q10H IV Last administered on 06/21/18 05:29; Start 06/18/18 at 19:00 Famotidine (Pepcid Vial) 20 mg BID IVP Last administered on 06/21/18 09:19; Start 06/19/18 at 10:00 Oxycodone/ Acetaminophen (Percocet 5/325) 1 tab PRN Q4HRS PRN PO PAIN Last administered on 06/21/18 09:15; Start 06/19/18 at 12:45 Throat Lozenges (Cepacol Sore Throat Lozenge) 1 kayli PRN Q2HRS PRN PO SORE THROAT Last administered on 06/20/18 06:46; Start 06/19/18 at 14:00 Nicotine (Nicoderm Cq 14mg) 1 patch PRN DAILY PRN TD SMOKING CESSATION Last administered on 5/3/19at 09:21; Start 06/19/18 at 14:00 Morphine Sulfate (Morphine Sulfate) 8 mg PRN Q4HRS PRN IV MODERATE TO SEVERE PAIN Last administered on 06/21/18at 09:17; Start 06/19/18 at 19:45 Vitals/I & O Vital Sign - Last 24 Hours 06/20/18 06/20/18 06/20/18 06/20/18 10:58 11:51 14:02 15:00 Temp 97.7 97.8 97.7 97.8 Pulse 71 81 Resp 18 16 16 18 B/P (MAP) 138/94 (109) 112/84 (93) Pulse Ox 97 99 O2 Delivery Room Air Room Air Room Air Room Air 06/20/18 06/20/18 06/20/18 06/20/18 16:22 19:00 19:40 20:00 Temp 97.7 97.7 Pulse 81 Resp 16 18 18 B/P (MAP) 129/93 (105) Pulse Ox 98 O2 Delivery Room Air Room Air Room Air Room Air 06/20/18 06/20/18 06/20/18 06/20/18 20:07 20:46 23:11 23:44 Temp 97.7 98.5 97.7 98.5 Pulse 81 82 Resp 18 18 18 18 B/P (MAP) 129/93 (105) 132/95 (107) Pulse Ox 98 98 O2 Delivery Room Air Nasal Cannula Room Air Room Air 06/21/18 06/21/18 06/21/18 06/21/18 01:41 02:41 03:00 05:28 Temp 98.3 98.3 Pulse 67 Resp 16 18 18 20 B/P (MAP) 137/88 (104) Pulse Ox 98 O2 Delivery Room Air Room Air Room Air Room Air 06/21/18 06/21/18 06/21/18 06/21/18 06:00 07:00 09:15 09:17 Temp 97.8 97.8 Pulse 72 Resp 18 18 B/P (MAP) 130/93 (105) Pulse Ox 98 98 O2 Delivery Room Air Room Air Room Air Room Air O2 Flow Rate 10.0 Intake and Output 06/20/18 06/20/18 06/21/18 15:00 23:00 07:00 Intake Total 475 ml 150 ml Balance 475 ml 150 ml GABRIELA ESQUIVEL MD June 21, 2018 10:20
[2018-06-21 11:00] VITALS: BP 117/87
--- NOTE | 2018-06-21 12:32 | NUR ---
SW following. Discussed with RN, pt currently on clears and is yet to pass gas. Pt tested positive for meth, discussed with Dr. Starr, PAT team has been consulted for positive meth screen. SW will continue to follow.
--- NOTE | 2018-06-21 14:31 | NUR ---
SW following. [facility] PAT team contacted SW to discuss assessment. Per [facility], pt is known to [facility], has a level 1 [facility] screen from April. Joel reported pt was got out of longterm in February and is on parole, he has been using meth every day for the last 2 months (more than when he was seen in April). Joel reported pt was in agreement for [facility] level 2, however when Joel returned with some paperwork pt had changed his mind, stating he doesn't want to because he can't make any money, referring to meth. Pt agreeable to continue with Level 1 [facility] and the worker who follows him. [facility] advised pt's staff electronic warfare officer knows about pt's drug use due to pt failing UA's. RN notified. No further SW needs at this time, pt has received self pay resource packet.
--- NOTE | 2018-06-21 14:52 | PDOC ---
G I PROGRESS NOTE Subjective Some abdominal discomfort. Flatus, but no stool. No N, V. Physical Exam Lungs clear. RRR Abdomen soft, incisional tenderness. Few bowel sounds. Review of Relevant I have reviewed the following items brianna (where applicable) has been applied. Labs Laboratory Tests Test 06/20/18 04:20 White Blood Count 9.1 x10^3/uL (4.0-11.0) Red Blood Count 5.28 x10^6/uL (4.30-5.70) Hemoglobin 15.5 g/dL (13.0-17.5) Hematocrit 45.1 % (39.0-53.0) Mean Corpuscular Volume 85 fL (79-100) Mean Corpuscular Hemoglobin 29 pg (25-35) Mean Corpuscular Hemoglobin Concent 34 g/dL (31-37) Red Cell Distribution Width 13.2 % (11.5-14.5) Platelet Count 225 x10^3/uL (140-400) Neutrophils (%) (Auto) 60 % (31-73) Lymphocytes (%) (Auto) 28 % (24-48) Monocytes (%) (Auto) 9 % (0-9) Eosinophils (%) (Auto) 3 % (0-3) Basophils (%) (Auto) 1 % (0-3) Neutrophils # (Auto) 5.4 x10^3uL (1.8-7.7) Lymphocytes # (Auto) 2.5 x10^3/uL (1.0-4.8) Monocytes # (Auto) 0.8 x10^3/uL (0.0-1.1) Eosinophils # (Auto) 0.3 x10^3/uL (0.0-0.7) Basophils # (Auto) 0.0 x10^3/uL (0.0-0.2) Sodium Level 132 mmol/L (136-145) Potassium Level 3.7 mmol/L (3.5-5.1) Chloride Level 98 mmol/L (98-107) Carbon Dioxide Level 26 mmol/L (21-32) Anion Gap 8 (6-14) Blood Urea Nitrogen 15 mg/dL (8-26) Creatinine 0.8 mg/dL (0.7-1.3) Estimated GFR (Cockcroft-Gault) 128.3 BUN/Creatinine Ratio 19 (6-20) Glucose Level 91 mg/dL (70-99) Calcium Level 8.8 mg/dL (8.5-10.1) Total Bilirubin 0.7 mg/dL (0.2-1.0) Aspartate Amino Transf (AST/SGOT) 39 U/L (15-37) Alanine Aminotransferase (ALT/SGPT) 32 U/L (16-63) Alkaline Phosphatase 60 U/L (46-116) Total Protein 7.2 g/dL (6.4-8.2) Albumin 3.0 g/dL (3.4-5.0) Albumin/Globulin Ratio 0.7 (1.0-1.7) Microbiology 06/17/18 Urine Culture - Final, Complete 06/17/18 Urine Culture Result 1 (JOJO) - Final, Complete Vitals/I & O Vital Sign - Last 24 Hours 06/20/18 06/20/18 06/20/18 06/20/18 15:00 16:22 19:00 19:40 Temp 97.8 97.7 97.8 97.7 Pulse 81 81 Resp 18 16 18 18 B/P (MAP) 112/84 (93) 129/93 (105) Pulse Ox 99 98 O2 Delivery Room Air Room Air Room Air Room Air 06/20/18 06/20/18 06/20/18 06/20/18 20:00 20:07 20:46 23:11 Temp 97.7 98.5 97.7 98.5 Pulse 81 82 Resp 18 18 18 B/P (MAP) 129/93 (105) 132/95 (107) Pulse Ox 98 98 O2 Delivery Room Air Room Air Nasal Cannula Room Air 06/20/18 06/21/18 06/21/18 06/21/18 23:44 01:41 02:41 03:00 Temp 98.3 98.3 Pulse 67 Resp 18 16 18 18 B/P (MAP) 137/88 (104) Pulse Ox 98 O2 Delivery Room Air Room Air Room Air 06/21/18 06/21/18 06/21/18 06/21/18 05:28 06:00 07:00 09:15 Temp 97.8 97.8 Pulse 72 Resp 20 18 18 B/P (MAP) 130/93 (105) Pulse Ox 98 98 O2 Delivery Room Air Room Air Room Air O2 Flow Rate 10.0 06/21/18 06/21/18 06/21/18 06/21/18 09:17 10:00 10:00 11:00 Temp 98.0 98.0 Pulse 89 Resp 18 B/P (MAP) 117/87 (97) Pulse Ox 100 O2 Delivery Room Air Room Air Room Air Room Air 06/21/18 06/21/18 14:03 14:03 O2 Delivery Room Air Room Air Intake and Output 06/20/18 06/20/18 06/21/18 14:59 22:59 06:59 Intake Total 475 ml 150 ml Balance 475 ml 150 ml Problem List Problems Medical Problems: (1) Small bowel obstruction Status: Acute Assessment Post-op ileus, better? Plan of Care Note Continue as now. Diet per surgical service. --off the . Coverage available if needed. Will re-evaluate Sunday. JERRY DOWD MD June 21, 2018 14:52
[2018-06-21 15:00] VITALS: BP 122/83
[2018-06-21 19:00] VITALS: BP 117/81
[2018-06-21] MEDS: BENZOCAINE/MENTHOL LOZENGE. PO PRN (20:22)
[2018-06-21 23:00] VITALS: BP 122/90
[2018-06-22] MEDS: MORPHINE SULFATE 10 MG/ML VIAL. IV PRN ×6 (02:11→23:55)
[2018-06-22] MEDS: oxyCODONE/APAP 5/325 1 TAB TABLET PO PRN ×6 (02:12→23:54)
[2018-06-22] MEDS: IV NORMAL SALINE 1000ML BAG 1,000 ML IV SCH ×3 (02:17→23:59)
[2018-06-22 03:00] VITALS: BP 118/86
[2018-06-22 04:30] LABS: BASO % 0 % (0-3); EOS # 0.5 x10^3/uL (0.0-0.7); EOS % 6 % (0-3); HEMATOCRIT 44.8 % (39.0-53.0); HEMOGLOBIN 15.5 g/dL (13.0-17.5); LYMPH # 1.9 x10^3/uL (1.0-4.8); LYMPH % 24 % (24-48); MEAN CORPUSCULAR HEMOGLOBIN 29 pg (25-35); MEAN CORPUSCULAR HGB CONC 35 g/dL (31-37); MEAN CORPUSCULAR VOLUME 84 fL (79-100); MONO # 0.6 x10^3/uL (0.0-1.1); MONO % 8 % (0-9); NEUT # 5.1 x10^3uL (1.8-7.7); NEUT % 63 % (31-73); PLATELET COUNT 265 x10^3/uL (140-400); RED BLOOD COUNT 5.35 x10^6/uL (4.30-5.70); RED CELL DISTRIBUTION WIDTH 13.3 % (11.5-14.5); WHITE BLOOD COUNT 8.1 x10^3/uL (4.0-11.0)
[2018-06-22 04:52] LABS: ALBUMIN 2.8 g/dL (3.4-5.0); ALBUMIN/GLOBULIN RATIO 0.7 (1.0-1.7); CALCIUM 8.7 mg/dL (8.5-10.1); CREATININE 0.8 mg/dL (0.7-1.3); GFR 128.3; POTASSIUM 3.9 mmol/L (3.5-5.1); TOTAL BILIRUBIN 0.5 mg/dL (0.2-1.0)
[2018-06-22] MEDS: BENZOCAINE/MENTHOL LOZENGE. PO PRN (06:17)
[2018-06-22 07:00] VITALS: BP 127/83
--- NOTE | 2018-06-22 08:03 | PDOC ---
PROGRESS NOTES Chief Complaint Chief Complaint DATE OF SURGERY: 06/17/2018 PREOPERATIVE DIAGNOSIS: Small-bowel obstruction with possible ischemia. POSTOPERATIVE DIAGNOSIS: Small bowel obstruction secondary to adhesions with some vascular embarrassment to the small bowel. PROCEDURE: Laparoscopic converted to open exploration with release of small-bowel obstruction and lysis of adhesions. SURGEON: Uriel Queen MD MANAGER DIGITAL: JORDEN Brice. ANESTHESIA: General endotracheal. ESTIMATED BLOOD LOSS: 25. INTRAVENOUS: 800. URINE OUTPUT: 700. INDICATIONS: The patient is a 42-year-old with severe abdominal pain, elevated lactic acid, CT scan suggesting internal hernia with possible threatened bowel. History of Present Illness History of Present Illness VTE Prophylaxis Ordered VTE Prophylaxis Devices: Yes VTE Pharmacological Prophylaxi: Yes Assessment/Plan Assessment/Plan IMPRESSION 1. evidence of small bowel obstruction with transition in the left abdomen, somewhat rotational appearance of mesenteric fat and vasculature in the left abdomen as may be seen with component of mesenteric volvulus. There is associated long segment small bowel wall thickening. There is no significant free fluid or free air. There is distention of stomach. 2. distention of the urinary bladder. 3. lactic acidosis 4. acute abdomen 5. meth abuse hx 06/22 passing flatus, no BM YET, walking in halls plan admit [place] FOLLOWING npo iv fluid support iv pain control gi consult progressive ambulation frequent labs PAIN WORSE 06/21 MADE NPO 35 min pt exam, chart review,> 50% of time spent with exam, chart review, pt care coordination high risk for recovery given hx substance abuse Vitals Vitals Vital Signs Date Time Temp Pulse Resp B/P (MAP) Pulse Ox O2 Delivery O2 Flow Rate FiO2 06/22/18 07:12 Room Air 06/22/18 03:00 98.4 63 18 118/86 (97) 98 98.4 06/21/18 09:15 10.0 Physical Exam General: Alert, Oriented X3, Cooperative, No acute distress Heart: Regular rate, Normal S1, Normal S2, No murmurs Lungs: Clear Abdomen: Soft, Other (incision clean, dry, intact) Extremities: No cyanosis, No edema Skin: No rashes, No breakdown, No significant lesion Labs LABS Laboratory Tests Test 06/22/18 03:35 White Blood Count 8.1 x10^3/uL (4.0-11.0) Red Blood Count 5.35 x10^6/uL (4.30-5.70) Hemoglobin 15.5 g/dL (13.0-17.5) Hematocrit 44.8 % (39.0-53.0) Mean Corpuscular Volume 84 fL (79-100) Mean Corpuscular Hemoglobin 29 pg (25-35) Mean Corpuscular Hemoglobin Concent 35 g/dL (31-37) Red Cell Distribution Width 13.3 % (11.5-14.5) Platelet Count 265 x10^3/uL (140-400) Neutrophils (%) (Auto) 63 % (31-73) Lymphocytes (%) (Auto) 24 % (24-48) Monocytes (%) (Auto) 8 % (0-9) Eosinophils (%) (Auto) 6 % (0-3) Basophils (%) (Auto) 0 % (0-3) Neutrophils # (Auto) 5.1 x10^3uL (1.8-7.7) Lymphocytes # (Auto) 1.9 x10^3/uL (1.0-4.8) Monocytes # (Auto) 0.6 x10^3/uL (0.0-1.1) Eosinophils # (Auto) 0.5 x10^3/uL (0.0-0.7) Basophils # (Auto) 0.0 x10^3/uL (0.0-0.2) Sodium Level 133 mmol/L (136-145) Potassium Level 3.9 mmol/L (3.5-5.1) Chloride Level 98 mmol/L (98-107) Carbon Dioxide Level 27 mmol/L (21-32) Anion Gap 8 (6-14) Blood Urea Nitrogen 15 mg/dL (8-26) Creatinine 0.8 mg/dL (0.7-1.3) Estimated GFR (Cockcroft-Gault) 128.3 BUN/Creatinine Ratio 19 (6-20) Glucose Level 98 mg/dL (70-99) Calcium Level 8.7 mg/dL (8.5-10.1) Total Bilirubin 0.5 mg/dL (0.2-1.0) Aspartate Amino Transf (AST/SGOT) 24 U/L (15-37) Alanine Aminotransferase (ALT/SGPT) 27 U/L (16-63) Alkaline Phosphatase 60 U/L (46-116) Total Protein 7.0 g/dL (6.4-8.2) Albumin 2.8 g/dL (3.4-5.0) Albumin/Globulin Ratio 0.7 (1.0-1.7) Assessment and Plan Assessmemt and Plan Problems Medical Problems: (1) Small bowel obstruction Status: Acute Comment Review of Relevant I have reviewed the following items brianna (where applicable) has been applied. Labs Laboratory Tests Test 06/22/18 03:35 White Blood Count 8.1 x10^3/uL (4.0-11.0) Red Blood Count 5.35 x10^6/uL (4.30-5.70) Hemoglobin 15.5 g/dL (13.0-17.5) Hematocrit 44.8 % (39.0-53.0) Mean Corpuscular Volume 84 fL (79-100) Mean Corpuscular Hemoglobin 29 pg (25-35) Mean Corpuscular Hemoglobin Concent 35 g/dL (31-37) Red Cell Distribution Width 13.3 % (11.5-14.5) Platelet Count 265 x10^3/uL (140-400) Neutrophils (%) (Auto) 63 % (31-73) Lymphocytes (%) (Auto) 24 % (24-48) Monocytes (%) (Auto) 8 % (0-9) Eosinophils (%) (Auto) 6 % (0-3) Basophils (%) (Auto) 0 % (0-3) Neutrophils # (Auto) 5.1 x10^3uL (1.8-7.7) Lymphocytes # (Auto) 1.9 x10^3/uL (1.0-4.8) Monocytes # (Auto) 0.6 x10^3/uL (0.0-1.1) Eosinophils # (Auto) 0.5 x10^3/uL (0.0-0.7) Basophils # (Auto) 0.0 x10^3/uL (0.0-0.2) Sodium Level 133 mmol/L (136-145) Potassium Level 3.9 mmol/L (3.5-5.1) Chloride Level 98 mmol/L (98-107) Carbon Dioxide Level 27 mmol/L (21-32) Anion Gap 8 (6-14) Blood Urea Nitrogen 15 mg/dL (8-26) Creatinine 0.8 mg/dL (0.7-1.3) Estimated GFR (Cockcroft-Gault) 128.3 BUN/Creatinine Ratio 19 (6-20) Glucose Level 98 mg/dL (70-99) Calcium Level 8.7 mg/dL (8.5-10.1) Total Bilirubin 0.5 mg/dL (0.2-1.0) Aspartate Amino Transf (AST/SGOT) 24 U/L (15-37) Alanine Aminotransferase (ALT/SGPT) 27 U/L (16-63) Alkaline Phosphatase 60 U/L (46-116) Total Protein 7.0 g/dL (6.4-8.2) Albumin 2.8 g/dL (3.4-5.0) Albumin/Globulin Ratio 0.7 (1.0-1.7) Laboratory Tests Test 06/22/18 03:35 White Blood Count 8.1 x10^3/uL (4.0-11.0) Red Blood Count 5.35 x10^6/uL (4.30-5.70) Hemoglobin 15.5 g/dL (13.0-17.5) Hematocrit 44.8 % (39.0-53.0) Mean Corpuscular Volume 84 fL (79-100) Mean Corpuscular Hemoglobin 29 pg (25-35) Mean Corpuscular Hemoglobin Concent 35 g/dL (31-37) Red Cell Distribution Width 13.3 % (11.5-14.5) Platelet Count 265 x10^3/uL (140-400) Neutrophils (%) (Auto) 63 % (31-73) Lymphocytes (%) (Auto) 24 % (24-48) Monocytes (%) (Auto) 8 % (0-9) Eosinophils (%) (Auto) 6 % (0-3) Basophils (%) (Auto) 0 % (0-3) Neutrophils # (Auto) 5.1 x10^3uL (1.8-7.7) Lymphocytes # (Auto) 1.9 x10^3/uL (1.0-4.8) Monocytes # (Auto) 0.6 x10^3/uL (0.0-1.1) Eosinophils # (Auto) 0.5 x10^3/uL (0.0-0.7) Basophils # (Auto) 0.0 x10^3/uL (0.0-0.2) Sodium Level 133 mmol/L (136-145) Potassium Level 3.9 mmol/L (3.5-5.1) Chloride Level 98 mmol/L (98-107) Carbon Dioxide Level 27 mmol/L (21-32) Anion Gap 8 (6-14) Blood Urea Nitrogen 15 mg/dL (8-26) Creatinine 0.8 mg/dL (0.7-1.3) Estimated GFR (Cockcroft-Gault) 128.3 BUN/Creatinine Ratio 19 (6-20) Glucose Level 98 mg/dL (70-99) Calcium Level 8.7 mg/dL (8.5-10.1) Total Bilirubin 0.5 mg/dL (0.2-1.0) Aspartate Amino Transf (AST/SGOT) 24 U/L (15-37) Alanine Aminotransferase (ALT/SGPT) 27 U/L (16-63) Alkaline Phosphatase 60 U/L (46-116) Total Protein 7.0 g/dL (6.4-8.2) Albumin 2.8 g/dL (3.4-5.0) Albumin/Globulin Ratio 0.7 (1.0-1.7) Microbiology 06/17/18 Urine Culture - Final, Complete 06/17/18 Urine Culture Result 1 (JOJO) - Final, Complete Medications Current Medications Fentanyl Citrate (Fentanyl 2ml Vial) 50 mcg 1X ONCE IV Last administered on 06/17/18at 12:43; Start 06/17/18 at 12:45; Stop 06/17/18 at 12:49; Status DC Haloperidol Lactate (Haldol Inj) 5 mg 1X ONCE IM Last administered on 06/17/18at 12:43; Start 06/17/18 at 12:45; Stop 06/17/18 at 12:49; Status DC Iohexol (Omnipaque 300 Mg/ml) 75 ml 1X ONCE IV Last administered on 06/17/18at 13:26; Start 06/17/18 at 13:00; Stop 06/17/18 at 13:01; Status DC Ondansetron HCl (Zofran) 4 mg PRN Q8HRS PRN IV NAUSEA/VOMITING; Start 06/17/18 at 14:15; Stop 06/18/18 at 14:14; Status DC Morphine Sulfate (Morphine Sulfate) 6 mg PRN Q2HR PRN IV PAIN Last administered on 06/18/18at 14:11; Start 06/17/18 at 14:15; Stop 06/18/18 at 14:14; Status DC Sodium Chloride 1,000 ml @ 125 mls/hr Q8H IV Last administered on 06/18/18at 10:09; Start 06/17/18 at 14:03; Stop 06/18/18 at 14:02; Status DC Sodium Chloride 500 ml @ 500 mls/hr 1X ONCE IV ; Start 06/17/18 at 14:15; Stop 06/17/18 at 15:14; Status DC Sodium Chloride 1,000 ml @ 1,000 mls/hr 1X ONCE IV Last administered on 06/17/18at 14:29; Start 06/17/18 at 14:15; Stop 06/17/18 at 15:14; Status DC Cefazolin Sodium/ Dextrose 50 ml @ 100 mls/hr 1X ONCE IV Last administered on 06/17/18at 17:15; Start 06/17/18 at 16:00; Stop 06/17/18 at 16:29; Status DC Metronidazole 100 ml @ 100 mls/hr 1X ONCE IV ; Start 06/17/18 at 16:00; Stop 06/17/18 at 16:59; Status DC Sevoflurane (Ultane) 90 ml STK-MED ONCE IH ; Start 06/17/18 at 16:07; Stop 06/17/18 at 16:09; Status DC Midazolam HCl (Versed) 2 mg STK-MED ONCE .ROUTE ; Start 06/17/18 at 16:08; Stop 06/17/18 at 16:09; Status DC Fentanyl Citrate (Fentanyl 2ml Vial) 100 mcg STK-MED ONCE .ROUTE ; Start 06/17/18 at 16:08; Stop 06/17/18 at 16:09; Status DC Succinylcholine Chloride (Anectine) 200 mg STK-MED ONCE .ROUTE ; Start 06/17/18 at 16:08; Stop 06/17/18 at 16:09; Status DC Glycopyrrolate (Robinul) 1 mg STK-MED ONCE .ROUTE ; Start 06/17/18 at 16:08; Stop 06/17/18 at 16:09; Status DC Neostigmine Methylsulfate (Neostigmine Methylsulfate) 5 mg STK-MED ONCE .ROUTE ; Start 06/17/18 at 16:08; Stop 06/17/18 at 16:09; Status DC Rocuronium [place] (Zemuron) 50 mg STK-MED ONCE .ROUTE ; Start 06/17/18 at 16:08; Stop 06/17/18 at 16:09; Status DC Dexamethasone Sodium Phosphate (Decadron) 4 mg STK-MED ONCE .ROUTE ; Start 06/17/18 at 16:09; Stop 06/17/18 at 16:10; Status DC Propofol 20 ml @ As Directed STK-MED ONCE IV ; Start 06/17/18 at 16:09; Stop at 16:10; Status DC Lidocaine HCl (Lidocaine Pf 2% Vial) 5 ml STK-MED ONCE .ROUTE ; Start 06/17/18 at 16:09; Stop 06/17/18 at 16:10; Status DC Ondansetron HCl (Zofran) 4 mg STK-MED ONCE .ROUTE ; Start 06/17/18 at 16:09; Stop 06/17/18 at 16:10; Status DC Ketorolac Tromethamine (Toradol For Or Only) 30 mg STK-MED ONCE INJ ; Start 06/17/18 at 16:09; Stop 06/17/18 at 16:10; Status DC Ondansetron HCl (Zofran) 4 mg PRN Q6HRS PRN IV NAUSEA/VOMITING; Start 06/17/18 at 16:15; Stop 06/18/18 at 16:14; Status DC Fentanyl Citrate (Fentanyl 2ml Vial) 25 mcg PRN Q5MIN PRN IV MILD PAIN; Start 06/17/18 at 16:15; Stop 06/18/18 at 16:14; Status DC Fentanyl Citrate (Fentanyl 2ml Vial) 50 mcg PRN Q5MIN PRN IV MODERATE TO SEVERE PAIN Last administered on 06/17/18at 19:45; Start 06/17/18 at 16:15; Stop 06/18/18 at 16:14; Status DC Morphine Sulfate (Morphine Sulfate) 1 mg PRN Q10MIN PRN IV SEVERE PAIN; Start 06/17/18 at 16:15; Stop 06/18/18 at 16:14; Status DC Ringer's Solution 1,000 ml @ 30 mls/hr Q24H IV ; Start 06/17/18 at 16:03; Stop 06/18/18 at 04:02; Status DC Lidocaine HCl (Xylocaine-Mpf 1% 2ml Vial) 2 ml 1X PRN PRN ID IV START; Start 06/17/18 at 16:15; Stop 06/18/18 at 16:14; Status DC Hydromorphone HCl (Dilaudid) 0.5 mg PRN Q10MIN PRN IV SEV PAIN, Second choice; Start 06/17/18 at 16:15; Stop 06/18/18 at 16:14; Status DC Prochlorperazine Edisylate (Compazine) 5 mg PACU PRN PRN IV NAUSEA, MRX1 Last administered on 06/17/18at 19:47; Start 06/17/18 at 16:15; Stop 06/18/18 at 16:14; Status DC Bupivacaine HCl/ Epinephrine Bitart (Sensorcain-Mpf Epi 0.5%-1:[id number]) 30 ml STK-MED ONCE .ROUTE ; Start 06/17/18 at 15:28; Stop 06/17/18 at 16:29; Status DC Famotidine (Pepcid Vial) 20 mg STK-MED ONCE .ROUTE ; Start 06/17/18 at 17:32; Stop 06/17/18 at 17:34; Status DC Midazolam HCl (Versed) 2 mg STK-MED ONCE .ROUTE ; Start 06/17/18 at 17:33; Stop 06/17/18 at 17:34; Status DC Ephedrine Sulfate (ePHEDrine PF IN SALINE SYRINGE) 50 mg STK-MED ONCE IV ; Start 06/17/18 at 17:58; Stop 06/17/18 at 17:59; Status DC Sevoflurane (Ultane) 60 ml STK-MED ONCE IH ; Start 06/17/18 at 18:22; Stop 06/17/18 at 18:23; Status DC Morphine Sulfate (Morphine Sulfate) 6 mg PRN Q6HRS PRN IV PAIN Last administered on 06/19/18at 13:43; Start 06/18/18 at 18:45; Stop 06/19/18 at 19:44; Status DC Sodium Chloride 1,000 ml @ 100 mls/hr Q10H IV Last administered on 06/22/18 02:17; Start 06/18/18 at 19:00 Famotidine (Pepcid Vial) 20 mg BID IVP Last administered on 06/21/18at 20:14; Start 06/19/18 at 10:00 Oxycodone/ Acetaminophen (Percocet 5/325) 1 tab PRN Q4HRS PRN PO PAIN Last administered on 06/22/18at 06:12; Start 06/19/18 at 12:45 Throat Lozenges (Cepacol Sore Throat Lozenge) 1 kalyi PRN Q2HRS PRN PO SORE THROAT Last administered on 06/22/18 06:17; Start 06/19/18 at 14:00 Nicotine (Nicoderm Cq 14mg) 1 patch PRN DAILY PRN TD SMOKING CESSATION Last administered on 06/21/18 09:21; Start 06/19/18 at 14:00 Morphine Sulfate (Morphine Sulfate) 8 mg PRN Q4HRS PRN IV MODERATE TO SEVERE PAIN Last administered on 06/22/18 06:12; Start 06/19/18 at 19:45 Vitals/I & O Vital Sign - Last 24 Hours 06/21/18 06/21/18 06/21/18 06/21/18 09:15 09:17 11:00 14:03 Temp 98.0 98.0 Pulse 89 Resp 18 B/P (MAP) 117/87 (97) Pulse Ox 98 100 O2 Delivery Room Air Room Air Room Air Room Air O2 Flow Rate 10.0 06/21/18 06/21/18 06/21/18 06/21/18 14:03 15:00 17:58 17:59 Temp 98.2 98.2 Pulse 88 Resp 18 B/P (MAP) 122/83 (96) Pulse Ox 100 O2 Delivery Room Air Room Air Room Air Room Air 06/21/18 06/21/18 06/21/18 06/21/18 19:00 20:14 22:10 22:10 Temp 98.4 98.4 Pulse 72 Resp 18 B/P (MAP) 117/81 (93) Pulse Ox 98 O2 Delivery Room Air Room Air Room Air Room Air 06/21/18 06/22/18 06/22/1819 23:00 02:11 02:12 03:00 Temp 98.7 98.4 98.7 98.4 Pulse 71 63 Resp 18 18 B/P (MAP) 122/90 (101) 118/86 (97) Pulse Ox 100 98 O2 Delivery Room Air Room Air Room Air Room Air 06/22/18 06/22/18 06/22/18 06/22/18 06:12 06:12 06:42 07:12 O2 Delivery Room Air Room Air Room Air Room Air Intake and Output 06/21/18 06/21/18 06/22/18 14:59 22:59 06:59 Intake Total 1000 ml Output Total 1 ml Balance -1 ml 1000 ml GABRIELA ESQUIVEL MD June 22, 2018 08:03
--- NOTE | 2018-06-22 08:39 | PDOC ---
SURGICAL PROGRESS NOTE Subjective sleepy this AM some flatus mild nausea Vital Signs Vital Signs Date Time Temp Pulse Resp B/P (MAP) Pulse Ox O2 Delivery O2 Flow Rate FiO2 06/22/18 07:12 Room Air 06/22/18 03:00 98.4 63 18 118/86 (97) 98 98.4 06/21/18 09:15 10.0 I&O Intake and Output 06/22/18 07:00 Intake Total 1000 ml Output Total 1 ml Balance 999 ml IV Total 1000 ml Output Urine Total 1 ml # Voids 7 General: Alert, Oriented X3, Cooperative, No acute distress Abdomen: Soft, Other (incisional TTP, ND) Labs Laboratory Tests Test 06/22/18 03:35 White Blood Count 8.1 x10^3/uL (4.0-11.0) Red Blood Count 5.35 x10^6/uL (4.30-5.70) Hemoglobin 15.5 g/dL (13.0-17.5) Hematocrit 44.8 % (39.0-53.0) Mean Corpuscular Volume 84 fL (79-100) Mean Corpuscular Hemoglobin 29 pg (25-35) Mean Corpuscular Hemoglobin Concent 35 g/dL (31-37) Red Cell Distribution Width 13.3 % (11.5-14.5) Platelet Count 265 x10^3/uL (140-400) Neutrophils (%) (Auto) 63 % (31-73) Lymphocytes (%) (Auto) 24 % (24-48) Monocytes (%) (Auto) 8 % (0-9) Eosinophils (%) (Auto) 6 % (0-3) Basophils (%) (Auto) 0 % (0-3) Neutrophils # (Auto) 5.1 x10^3uL (1.8-7.7) Lymphocytes # (Auto) 1.9 x10^3/uL (1.0-4.8) Monocytes # (Auto) 0.6 x10^3/uL (0.0-1.1) Eosinophils # (Auto) 0.5 x10^3/uL (0.0-0.7) Basophils # (Auto) 0.0 x10^3/uL (0.0-0.2) Sodium Level 133 mmol/L (136-145) Potassium Level 3.9 mmol/L (3.5-5.1) Chloride Level 98 mmol/L (98-107) Carbon Dioxide Level 27 mmol/L (21-32) Anion Gap 8 (6-14) Blood Urea Nitrogen 15 mg/dL (8-26) Creatinine 0.8 mg/dL (0.7-1.3) Estimated GFR (Cockcroft-Gault) 128.3 BUN/Creatinine Ratio 19 (6-20) Glucose Level 98 mg/dL (70-99) Calcium Level 8.7 mg/dL (8.5-10.1) Total Bilirubin 0.5 mg/dL (0.2-1.0) Aspartate Amino Transf (AST/SGOT) 24 U/L (15-37) Alanine Aminotransferase (ALT/SGPT) 27 U/L (16-63) Alkaline Phosphatase 60 U/L (46-116) Total Protein 7.0 g/dL (6.4-8.2) Albumin 2.8 g/dL (3.4-5.0) Albumin/Globulin Ratio 0.7 (1.0-1.7) Laboratory Tests Test 06/22/18 03:35 White Blood Count 8.1 x10^3/uL (4.0-11.0) Red Blood Count 5.35 x10^6/uL (4.30-5.70) Hemoglobin 15.5 g/dL (13.0-17.5) Hematocrit 44.8 % (39.0-53.0) Mean Corpuscular Volume 84 fL (79-100) Mean Corpuscular Hemoglobin 29 pg (25-35) Mean Corpuscular Hemoglobin Concent 35 g/dL (31-37) Red Cell Distribution Width 13.3 % (11.5-14.5) Platelet Count 265 x10^3/uL (140-400) Neutrophils (%) (Auto) 63 % (31-73) Lymphocytes (%) (Auto) 24 % (24-48) Monocytes (%) (Auto) 8 % (0-9) Eosinophils (%) (Auto) 6 % (0-3) Basophils (%) (Auto) 0 % (0-3) Neutrophils # (Auto) 5.1 x10^3uL (1.8-7.7) Lymphocytes # (Auto) 1.9 x10^3/uL (1.0-4.8) Monocytes # (Auto) 0.6 x10^3/uL (0.0-1.1) Eosinophils # (Auto) 0.5 x10^3/uL (0.0-0.7) Basophils # (Auto) 0.0 x10^3/uL (0.0-0.2) Sodium Level 133 mmol/L (136-145) Potassium Level 3.9 mmol/L (3.5-5.1) Chloride Level 98 mmol/L (98-107) Carbon Dioxide Level 27 mmol/L (21-32) Anion Gap 8 (6-14) Blood Urea Nitrogen 15 mg/dL (8-26) Creatinine 0.8 mg/dL (0.7-1.3) Estimated GFR (Cockcroft-Gault) 128.3 BUN/Creatinine Ratio 19 (6-20) Glucose Level 98 mg/dL (70-99) Calcium Level 8.7 mg/dL (8.5-10.1) Total Bilirubin 0.5 mg/dL (0.2-1.0) Aspartate Amino Transf (AST/SGOT) 24 U/L (15-37) Alanine Aminotransferase (ALT/SGPT) 27 U/L (16-63) Alkaline Phosphatase 60 U/L (46-116) Total Protein 7.0 g/dL (6.4-8.2) Albumin 2.8 g/dL (3.4-5.0) Albumin/Globulin Ratio 0.7 (1.0-1.7) Problem List Problems Medical Problems: (1) Small bowel obstruction Status: Acute Assessment/Plan s/p release SBO, xlap try clears, increase activity PEACE BOWER APRN June 22, 2018 08:39
[2018-06-22] MEDS: FAMOTIDINE 20 MG/2 ML VIAL IVP SCH ×2 (10:25→22:08)
[2018-06-22] MEDS: ENOXAPARIN 40 MG/0.4 ML SYRINGE. SQ SCH (10:31)
[2018-06-22 15:00] VITALS: BP 120/87
[2018-06-22 19:00] VITALS: BP 124/88
[2018-06-22 23:15] VITALS: BP 125/81
[2018-06-23 03:44] VITALS: BP 125/86
[2018-06-23 05:29] LABS: BASO % 0 % (0-3); EOS # 0.5 x10^3/uL (0.0-0.7); EOS % 7 % (0-3); HEMATOCRIT 43.5 % (39.0-53.0); HEMOGLOBIN 15.3 g/dL (13.0-17.5); LYMPH # 1.9 x10^3/uL (1.0-4.8); LYMPH % 27 % (24-48); MEAN CORPUSCULAR HEMOGLOBIN 30 pg (25-35); MEAN CORPUSCULAR HGB CONC 35 g/dL (31-37); MEAN CORPUSCULAR VOLUME 85 fL (79-100); MONO # 0.6 x10^3/uL (0.0-1.1); MONO % 8 % (0-9); NEUT # 4.1 x10^3uL (1.8-7.7); NEUT % 58 % (31-73); PLATELET COUNT 238 x10^3/uL (140-400); RED BLOOD COUNT 5.12 x10^6/uL (4.30-5.70); RED CELL DISTRIBUTION WIDTH 12.9 % (11.5-14.5); WHITE BLOOD COUNT 7.1 x10^3/uL (4.0-11.0)
[2018-06-23 05:58] LABS: ALBUMIN 2.9 g/dL (3.4-5.0); ALBUMIN/GLOBULIN RATIO 0.7 (1.0-1.7); CALCIUM 8.6 mg/dL (8.5-10.1); CREATININE 0.8 mg/dL (0.7-1.3); GFR 128.3; TOTAL BILIRUBIN 0.4 mg/dL (0.2-1.0)
[2018-06-23] MEDS: oxyCODONE/APAP 5/325 1 TAB TABLET PO PRN ×5 (06:25→23:12)
[2018-06-23] MEDS: MORPHINE SULFATE 10 MG/ML VIAL. IV PRN ×5 (06:25→23:12)
[2018-06-23 07:00] VITALS: BP 111/85
--- NOTE | 2018-06-23 10:16 | PDOC ---
PROGRESS NOTES Chief Complaint Chief Complaint DATE OF SURGERY: 06/17/2018 PREOPERATIVE DIAGNOSIS: Small-bowel obstruction with possible ischemia. POSTOPERATIVE DIAGNOSIS: Small bowel obstruction secondary to adhesions with some vascular embarrassment to the small bowel. PROCEDURE: Laparoscopic converted to open exploration with release of small-bowel obstruction and lysis of adhesions. SURGEON: Uriel Queen MD LATHE HAND: JORDEN Brice. ANESTHESIA: General endotracheal. ESTIMATED BLOOD LOSS: 25. INTRAVENOUS: 800. URINE OUTPUT: 700. INDICATIONS: The patient is a 42-year-old with severe abdominal pain, elevated lactic acid, CT scan suggesting internal hernia with possible threatened bowel. History of Present Illness History of Present Illness VTE Prophylaxis Ordered VTE Prophylaxis Devices: Yes VTE Pharmacological Prophylaxi: Yes Assessment/Plan Assessment/Plan IMPRESSION 1. evidence of small bowel obstruction with transition in the left abdomen, somewhat rotational appearance of mesenteric fat and vasculature in the left abdomen as may be seen with component of mesenteric volvulus. There is associated long segment small bowel wall thickening. There is no significant free fluid or free air. There is distention of stomach. 2. distention of the urinary bladder. 3. lactic acidosis 4. acute abdomen 5. meth abuse hx 06/22 passing flatus, no BM YET, walking in halls plan admit [place] FOLLOWING npo iv fluid support iv pain control gi consult progressive ambulation frequent labs PAIN WORSE /3 MADE NPO 35 min pt exam, chart review,> 50% of time spent with exam, chart review, pt care coordination high risk for recovery given hx substance abuse Vitals Vitals Vital Signs Date Time Temp Pulse Resp B/P (MAP) Pulse Ox O2 Delivery O2 Flow Rate FiO2 06/23/18 07:25 99 Room Air 06/23/18 07:00 98.0 55 17 111/85 (94) 98.0 06/22/18 14:54 10.0 Physical Exam General: Alert, Oriented X3, Cooperative, No acute distress Heart: Regular rate, Normal S1, Normal S2, No murmurs Lungs: Clear Abdomen: Soft, Other (incision clean, dry, intact) Extremities: No cyanosis, No edema Skin: No rashes, No breakdown, No significant lesion Labs LABS Laboratory Tests Test 06/23/18 05:05 White Blood Count 7.1 x10^3/uL (4.0-11.0) Red Blood Count 5.12 x10^6/uL (4.30-5.70) Hemoglobin 15.3 g/dL (13.0-17.5) Hematocrit 43.5 % (39.0-53.0) Mean Corpuscular Volume 85 fL (79-100) Mean Corpuscular Hemoglobin 30 pg (25-35) Mean Corpuscular Hemoglobin Concent 35 g/dL (31-37) Red Cell Distribution Width 12.9 % (11.5-14.5) Platelet Count 238 x10^3/uL (140-400) Neutrophils (%) (Auto) 58 % (31-73) Lymphocytes (%) (Auto) 27 % (24-48) Monocytes (%) (Auto) 8 % (0-9) Eosinophils (%) (Auto) 7 % (0-3) Basophils (%) (Auto) 0 % (0-3) Neutrophils # (Auto) 4.1 x10^3uL (1.8-7.7) Lymphocytes # (Auto) 1.9 x10^3/uL (1.0-4.8) Monocytes # (Auto) 0.6 x10^3/uL (0.0-1.1) Eosinophils # (Auto) 0.5 x10^3/uL (0.0-0.7) Basophils # (Auto) 0.0 x10^3/uL (0.0-0.2) Sodium Level 135 mmol/L (136-145) Potassium Level 4.0 mmol/L (3.5-5.1) Chloride Level 99 mmol/L (98-107) Carbon Dioxide Level 28 mmol/L (21-32) Anion Gap 8 (6-14) Blood Urea Nitrogen 13 mg/dL (8-26) Creatinine 0.8 mg/dL (0.7-1.3) Estimated GFR (Cockcroft-Gault) 128.3 BUN/Creatinine Ratio 16 (6-20) Glucose Level 99 mg/dL (70-99) Calcium Level 8.6 mg/dL (8.5-10.1) Total Bilirubin 0.4 mg/dL (0.2-1.0) Aspartate Amino Transf (AST/SGOT) 21 U/L (15-37) Alanine Aminotransferase (ALT/SGPT) 27 U/L (16-63) Alkaline Phosphatase 60 U/L (46-116) Total Protein 7.0 g/dL (6.4-8.2) Albumin 2.9 g/dL (3.4-5.0) Albumin/Globulin Ratio 0.7 (1.0-1.7) Assessment and Plan Assessmemt and Plan Problems Medical Problems: (1) Small bowel obstruction Status: Acute Comment Review of Relevant I have reviewed the following items brianna (where applicable) has been applied. Labs Laboratory Tests Test 06/22/18 03:35 06/23/18 05:05 White Blood Count 8.1 x10^3/uL (4.0-11.0) 7.1 x10^3/uL (4.0-11.0) Red Blood Count 5.35 x10^6/uL (4.30-5.70) 5.12 x10^6/uL (4.30-5.70) Hemoglobin 15.5 g/dL (13.0-17.5) 15.3 g/dL (13.0-17.5) Hematocrit 44.8 % (39.0-53.0) 43.5 % (39.0-53.0) Mean Corpuscular Volume 84 fL (79-100) 85 fL (79-100) Mean Corpuscular Hemoglobin 29 pg (25-35) 30 pg (25-35) Mean Corpuscular Hemoglobin Concent 35 g/dL (31-37) 35 g/dL (31-37) Red Cell Distribution Width 13.3 % (11.5-14.5) 12.9 % (11.5-14.5) Platelet Count 265 x10^3/uL (140-400) 238 x10^3/uL (140-400) Neutrophils (%) (Auto) 63 % (31-73) 58 % (31-73) Lymphocytes (%) (Auto) 24 % (24-48) 27 % (24-48) Monocytes (%) (Auto) 8 % (0-9) 8 % (0-9) Eosinophils (%) (Auto) 6 % (0-3) 7 % (0-3) Basophils (%) (Auto) 0 % (0-3) 0 % (0-3) Neutrophils # (Auto) 5.1 x10^3uL (1.8-7.7) 4.1 x10^3uL (1.8-7.7) Lymphocytes # (Auto) 1.9 x10^3/uL (1.0-4.8) 1.9 x10^3/uL (1.0-4.8) Monocytes # (Auto) 0.6 x10^3/uL (0.0-1.1) 0.6 x10^3/uL (0.0-1.1) Eosinophils # (Auto) 0.5 x10^3/uL (0.0-0.7) 0.5 x10^3/uL (0.0-0.7) Basophils # (Auto) 0.0 x10^3/uL (0.0-0.2) 0.0 x10^3/uL (0.0-0.2) Sodium Level 133 mmol/L (136-145) 135 mmol/L (136-145) Potassium Level 3.9 mmol/L (3.5-5.1) 4.0 mmol/L (3.5-5.1) Chloride Level 98 mmol/L (98-107) 99 mmol/L (98-107) Carbon Dioxide Level 27 mmol/L (21-32) 28 mmol/L (21-32) Anion Gap 8 (6-14) 8 (6-14) Blood Urea Nitrogen 15 mg/dL (8-26) 13 mg/dL (8-26) Creatinine 0.8 mg/dL (0.7-1.3) 0.8 mg/dL (0.7-1.3) Estimated GFR (Cockcroft-Gault) 128.3 128.3 BUN/Creatinine Ratio 19 (6-20) 16 (6-20) Glucose Level 98 mg/dL (70-99) 99 mg/dL (70-99) Calcium Level 8.7 mg/dL (8.5-10.1) 8.6 mg/dL (8.5-10.1) Total Bilirubin 0.5 mg/dL (0.2-1.0) 0.4 mg/dL (0.2-1.0) Aspartate Amino Transf (AST/SGOT) 24 U/L (15-37) 21 U/L (15-37) Alanine Aminotransferase (ALT/SGPT) 27 U/L (16-63) 27 U/L (16-63) Alkaline Phosphatase 60 U/L (46-116) 60 U/L (46-116) Total Protein 7.0 g/dL (6.4-8.2) 7.0 g/dL (6.4-8.2) Albumin 2.8 g/dL (3.4-5.0) 2.9 g/dL (3.4-5.0) Albumin/Globulin Ratio 0.7 (1.0-1.7) 0.7 (1.0-1.7) Laboratory Tests Test 06/23/18 05:05 White Blood Count 7.1 x10^3/uL (4.0-11.0) Red Blood Count 5.12 x10^6/uL (4.30-5.70) Hemoglobin 15.3 g/dL (13.0-17.5) Hematocrit 43.5 % (39.0-53.0) Mean Corpuscular Volume 85 fL (79-100) Mean Corpuscular Hemoglobin 30 pg (25-35) Mean Corpuscular Hemoglobin Concent 35 g/dL (31-37) Red Cell Distribution Width 12.9 % (11.5-14.5) Platelet Count 238 x10^3/uL (140-400) Neutrophils (%) (Auto) 58 % (31-73) Lymphocytes (%) (Auto) 27 % (24-48) Monocytes (%) (Auto) 8 % (0-9) Eosinophils (%) (Auto) 7 % (0-3) Basophils (%) (Auto) 0 % (0-3) Neutrophils # (Auto) 4.1 x10^3uL (1.8-7.7) Lymphocytes # (Auto) 1.9 x10^3/uL (1.0-4.8) Monocytes # (Auto) 0.6 x10^3/uL (0.0-1.1) Eosinophils # (Auto) 0.5 x10^3/uL (0.0-0.7) Basophils # (Auto) 0.0 x10^3/uL (0.0-0.2) Sodium Level 135 mmol/L (136-145) Potassium Level 4.0 mmol/L (3.5-5.1) Chloride Level 99 mmol/L (98-107) Carbon Dioxide Level 28 mmol/L (21-32) Anion Gap 8 (6-14) Blood Urea Nitrogen 13 mg/dL (8-26) Creatinine 0.8 mg/dL (0.7-1.3) Estimated GFR (Cockcroft-Gault) 128.3 BUN/Creatinine Ratio 16 (6-20) Glucose Level 99 mg/dL (70-99) Calcium Level 8.6 mg/dL (8.5-10.1) Total Bilirubin 0.4 mg/dL (0.2-1.0) Aspartate Amino Transf (AST/SGOT) 21 U/L (15-37) Alanine Aminotransferase (ALT/SGPT) 27 U/L (16-63) Alkaline Phosphatase 60 U/L (46-116) Total Protein 7.0 g/dL (6.4-8.2) Albumin 2.9 g/dL (3.4-5.0) Albumin/Globulin Ratio 0.7 (1.0-1.7) Microbiology 06/17/18 Urine Culture - Final, Complete 06/17/18 Urine Culture Result 1 (JOJO) - Final, Complete Medications Current Medications Fentanyl Citrate (Fentanyl 2ml Vial) 50 mcg 1X ONCE IV Last administered on 06/17/18at 12:43; Start 06/17/18 at 12:45; Stop 06/17/18 at 12:49; Status DC Haloperidol Lactate (Haldol Inj) 5 mg 1X ONCE IM Last administered on 06/17/18at 12:43; Start 06/17/18 at 12:45; Stop 06/17/18 at 12:49; Status DC Iohexol (Omnipaque 300 Mg/ml) 75 ml 1X ONCE IV Last administered on 06/17/18at 13:26; Start 06/17/18 at 13:00; Stop 06/17/18 at 13:01; Status DC Ondansetron HCl (Zofran) 4 mg PRN Q8HRS PRN IV NAUSEA/VOMITING; Start 06/17/18 at 14:15; Stop 06/18/18 at 14:14; Status DC Morphine Sulfate (Morphine Sulfate) 6 mg PRN Q2HR PRN IV PAIN Last administered on 06/18/18at 14:11; Start 06/17/18 at 14:15; Stop 06/18/18 at 14:14; Status DC Sodium Chloride 1,000 ml @ 125 mls/hr Q8H IV Last administered on 06/18/18at 10:09; Start 06/17/18 at 14:03; Stop 06/18/18 at 14:02; Status DC Sodium Chloride 500 ml @ 500 mls/hr 1X ONCE IV ; Start 06/17/18 at 14:15; Stop 06/17/18 at 15:14; Status DC Sodium Chloride 1,000 ml @ 1,000 mls/hr 1X ONCE IV Last administered on 06/17/18at 14:29; Start 06/17/18 at 14:15; Stop 06/17/18 at 15:14; Status DC Cefazolin Sodium/ Dextrose 50 ml @ 100 mls/hr 1X ONCE IV Last administered on 06/17/18at 17:15; Start 06/17/18 at 16:00; Stop 06/17/18 at 16:29; Status DC Metronidazole 100 ml @ 100 mls/hr 1X ONCE IV ; Start 06/17/18 at 16:00; Stop 06/17/18 at 16:59; Status DC Sevoflurane (Ultane) 90 ml STK-MED ONCE IH ; Start 06/17/18 at 16:07; Stop 06/17/18 at 16:09; Status DC Midazolam HCl (Versed) 2 mg STK-MED ONCE .ROUTE ; Start 06/17/18 at 16:08; Stop 06/17/18 at 16:09; Status DC Fentanyl Citrate (Fentanyl 2ml Vial) 100 mcg STK-MED ONCE .ROUTE ; Start 06/17/18 at 16:08; Stop 06/17/18 at 16:09; Status DC Succinylcholine Chloride (Anectine) 200 mg STK-MED ONCE .ROUTE ; Start 06/17/18 at 16:08; Stop 06/17/18 at 16:09; Status DC Glycopyrrolate (Robinul) 1 mg STK-MED ONCE .ROUTE ; Start 06/17/18 at 16:08; Stop 06/17/18 at 16:09; Status DC Neostigmine Methylsulfate (Neostigmine Methylsulfate) 5 mg STK-MED ONCE .ROUTE ; Start 06/17/18 at 16:08; Stop 06/17/18 at 16:09; Status DC Rocuronium [place] (Zemuron) 50 mg STK-MED ONCE .ROUTE ; Start 06/17/18 at 16:08; Stop 06/17/18 at 16:09; Status DC Dexamethasone Sodium Phosphate (Decadron) 4 mg STK-MED ONCE .ROUTE ; Start 06/17/18 at 16:09; Stop 06/17/18 at 16:10; Status DC Propofol 20 ml @ As Directed STK-MED ONCE IV ; Start 06/17/18 at 16:09; Stop 06/17/18 at 16:10; Status DC Lidocaine HCl (Lidocaine Pf 2% Vial) 5 ml STK-MED ONCE .ROUTE ; Start 06/17/18 at 16:09; Stop 06/17/18 at 16:10; Status DC Ondansetron HCl (Zofran) 4 mg STK-MED ONCE .ROUTE ; Start 06/17/18 at 16:09; Stop 06/17/18 at 16:10; Status DC Ketorolac Tromethamine (Toradol For Or Only) 30 mg STK-MED ONCE INJ ; Start 06/17/18 at 16:09; Stop 06/17/18 at 16:10; Status DC Ondansetron HCl (Zofran) 4 mg PRN Q6HRS PRN IV NAUSEA/VOMITING; Start 06/17/18 at 16:15; Stop 06/18/18 at 16:14; Status DC Fentanyl Citrate (Fentanyl 2ml Vial) 25 mcg PRN Q5MIN PRN IV MILD PAIN; Start 06/17/18 at 16:15; Stop 06/18/18 at 16:14; Status DC Fentanyl Citrate (Fentanyl 2ml Vial) 50 mcg PRN Q5MIN PRN IV MODERATE TO SEVERE PAIN Last administered on 06/17/18at 19:45; Start 06/17/18 at 16:15; Stop 06/18/18 at 16:14; Status DC Morphine Sulfate (Morphine Sulfate) 1 mg PRN Q10MIN PRN IV SEVERE PAIN; Start 06/17/18 at 16:15; Stop 06/18/18 at 16:14; Status DC Ringer's Solution 1,000 ml @ 30 mls/hr Q24H IV ; Start 06/17/18 at 16:03; Stop 06/18/18 at 04:02; Status DC Lidocaine HCl (Xylocaine-Mpf 1% 2ml Vial) 2 ml 1X PRN PRN ID IV START; Start 06/17/18 at 16:15; Stop 06/18/18 at 16:14; Status DC Hydromorphone HCl (Dilaudid) 0.5 mg PRN Q10MIN PRN IV SEV PAIN, Second choice; Start 06/17/18 at 16:15; Stop 06/18/18 at 16:14; Status DC Prochlorperazine Edisylate (Compazine) 5 mg PACU PRN PRN IV NAUSEA, MRX1 Last administered on 06/17/18at 19:47; Start 06/17/18 at 16:15; Stop 06/18/18 at 16:14; Status DC Bupivacaine HCl/ Epinephrine Bitart (Sensorcain-Mpf Epi 0.5%-[id number]) 30 ml STK-MED ONCE .ROUTE ; Start 06/17/18 at 15:28; Stop 06/17/18 at 16:29; Status DC Famotidine (Pepcid Vial) 20 mg STK-MED ONCE .ROUTE ; Start 06/17/18 at 17:32; Stop 06/17/18 at 17:34; Status DC Midazolam HCl (Versed) 2 mg STK-MED ONCE .ROUTE ; Start 06/17/18 at 17:33; Stop 06/17/18 at 17:34; Status DC Ephedrine Sulfate (ePHEDrine PF IN SALINE SYRINGE) 50 mg STK-MED ONCE IV ; Start 06/17/18 at 17:58; Stop 06/17/18 at 17:59; Status DC Sevoflurane (Ultane) 60 ml STK-MED ONCE IH ; Start 06/17/18 at 18:22; Stop 06/17/18 at 18:23; Status DC Morphine Sulfate (Morphine Sulfate) 6 mg PRN Q6HRS PRN IV PAIN Last administered on 06/19/18at 13:43; Start 06/18/18 at 18:45; Stop 06/19/18 at 19:44; Status DC Sodium Chloride 1,000 ml @ 100 mls/hr Q10H IV Last administered on 06/22/18at 23:59; Start 06/18/18 at 19:00 Famotidine (Pepcid Vial) 20 mg BID IVP Last administered on 06/22/18at 22:08; Start 06/19/18 at 10:00 Oxycodone/ Acetaminophen (Percocet 5/325) 1 tab PRN Q4HRS PRN PO PAIN Last administered on 06/23/18 06:25; Start 06/19/18 at 12:45 Throat Lozenges (Cepacol Sore Throat Lozenge) 1 kayli PRN Q2HRS PRN PO SORE THROAT Last administered on 06/22/18 06:17; Start 06/19/18 at 14:00 Nicotine (Nicoderm Cq 14mg) 1 patch PRN DAILY PRN TD SMOKING CESSATION Last administered on 06/21/18 09:21; Start 06/19/18 at 14:00 Morphine Sulfate (Morphine Sulfate) 8 mg PRN Q4HRS PRN IV MODERATE TO SEVERE PAIN Last administered on 06/23/18 06:25; Start 06/19/18 at 19:45 Enoxaparin Sodium (Lovenox 40mg Syringe) 40 mg Q24H SQ Last administered on 06/22/18 10:31; Start 06/22/18 at 09:00 Vitals/I & O Vital Sign - Last 24 Hours 06/22/18 06/22/18 06/22/18 06/22/18 10:25 10:29 14:53 14:54 Resp 18 18 18 18 Pulse Ox 100 100 100 O2 Delivery Room Air Room Air Room Air O2 Flow Rate 10.0 10.0 06/22/18 06/22/18 06/22/18 06/22/18 15:00 15:24 15:53 19:00 Temp 98.3 98.9 98.3 98.9 Pulse 81 61 Resp 18 18 16 16 B/P (MAP) 120/87 (98) 124/88 (100) Pulse Ox 100 99 O2 Delivery Room Air Room Air 06/22/18 06/22/18 06/22/18 06/22/18 19:46 19:48 20:00 23:15 Temp 98.6 98.6 Pulse 66 Resp 18 B/P (MAP) 125/81 (96) Pulse Ox 100 100 99 O2 Delivery Room Air Room Air Room Air Room Air 06/22/18 06/22/18 06/23/18 06/23/18 23:54 23:55 00:25 03:44 Temp 97.5 97.5 Pulse 56 Resp 18 B/P (MAP) 125/86 (99) Pulse Ox 99 96 O2 Delivery Room Air Room Air Room Air Room Air 06/23/18 06/23/18 06/23/18 06/23/18 06:25 06:25 07:00 07:25 Temp 98.0 98.0 Pulse 55 Resp 17 B/P (MAP) 111/85 (94) Pulse Ox 99 99 O2 Delivery Room Air Room Air Room Air Room Air Intake and Output 06/22/18 06/22/18 06/23/18 15:00 23:00 07:00 Intake Total 480 ml Balance 480 ml GABRIELA ESQUIVEL MD June 23, 2018 10:16
[2018-06-23] MEDS: ENOXAPARIN 40 MG/0.4 ML SYRINGE. SQ SCH (10:24)
[2018-06-23] MEDS: FAMOTIDINE 20 MG/2 ML VIAL IVP SCH ×2 (10:24→21:19)
[2018-06-23] MEDS: IV NORMAL SALINE 1000ML BAG 1,000 ML IV SCH ×2 (10:26→18:58)
[2018-06-23 11:00] VITALS: BP 112/84
--- NOTE | 2018-06-23 11:09 | NUR ---
This nurse paged MD to confirm diet orders, orders received this nurse will continue to monitor.
--- NOTE | 2018-06-23 14:51 | PDOC ---
PROGRESS NOTES Subjective Subjective doing well, wanting to advance diet Objective Objective Vital Signs Date Time Temp Pulse Resp B/P (MAP) Pulse Ox O2 Delivery O2 Flow Rate FiO2 06/23/18 11:25 99 Room Air 06/23/18 11:00 98.1 57 17 112/84 (93) 98.1 06/22/18 14:54 10.0 Intake and Output 06/23/18 06:59 Intake Total 480 ml Balance 480 ml Intake Oral 480 ml # Voids 3 Physical Exam Abdomen: Soft, No tenderness Assessment Assessment Problems Medical Problems: (1) Small bowel obstruction Status: Acute Plan Plan of Care Advance to full liquids Comment Review of Relevant I have reviewed the following items brianna (where applicable) has been applied. Labs Laboratory Tests Test 06/22/18 03:35 06/23/18 05:05 White Blood Count 8.1 x10^3/uL (4.0-11.0) 7.1 x10^3/uL (4.0-11.0) Red Blood Count 5.35 x10^6/uL (4.30-5.70) 5.12 x10^6/uL (4.30-5.70) Hemoglobin 15.5 g/dL (13.0-17.5) 15.3 g/dL (13.0-17.5) Hematocrit 44.8 % (39.0-53.0) 43.5 % (39.0-53.0) Mean Corpuscular Volume 84 fL (79-100) 85 fL (79-100) Mean Corpuscular Hemoglobin 29 pg (25-35) 30 pg (25-35) Mean Corpuscular Hemoglobin Concent 35 g/dL (31-37) 35 g/dL (31-37) Red Cell Distribution Width 13.3 % (11.5-14.5) 12.9 % (11.5-14.5) Platelet Count 265 x10^3/uL (140-400) 238 x10^3/uL (140-400) Neutrophils (%) (Auto) 63 % (31-73) 58 % (31-73) Lymphocytes (%) (Auto) 24 % (24-48) 27 % (24-48) Monocytes (%) (Auto) 8 % (0-9) 8 % (0-9) Eosinophils (%) (Auto) 6 % (0-3) 7 % (0-3) Basophils (%) (Auto) 0 % (0-3) 0 % (0-3) Neutrophils # (Auto) 5.1 x10^3uL (1.8-7.7) 4.1 x10^3uL (1.8-7.7) Lymphocytes # (Auto) 1.9 x10^3/uL (1.0-4.8) 1.9 x10^3/uL (1.0-4.8) Monocytes # (Auto) 0.6 x10^3/uL (0.0-1.1) 0.6 x10^3/uL (0.0-1.1) Eosinophils # (Auto) 0.5 x10^3/uL (0.0-0.7) 0.5 x10^3/uL (0.0-0.7) Basophils # (Auto) 0.0 x10^3/uL (0.0-0.2) 0.0 x10^3/uL (0.0-0.2) Sodium Level 133 mmol/L (136-145) 135 mmol/L (136-145) Potassium Level 3.9 mmol/L (3.5-5.1) 4.0 mmol/L (3.5-5.1) Chloride Level 98 mmol/L (98-107) 99 mmol/L (98-107) Carbon Dioxide Level 27 mmol/L (21-32) 28 mmol/L (21-32) Anion Gap 8 (6-14) 8 (6-14) Blood Urea Nitrogen 15 mg/dL (8-26) 13 mg/dL (8-26) Creatinine 0.8 mg/dL (0.7-1.3) 0.8 mg/dL (0.7-1.3) Estimated GFR (Cockcroft-Gault) 128.3 128.3 BUN/Creatinine Ratio 19 (6-20) 16 (6-20) Glucose Level 98 mg/dL (70-99) 99 mg/dL (70-99) Calcium Level 8.7 mg/dL (8.5-10.1) 8.6 mg/dL (8.5-10.1) Total Bilirubin 0.5 mg/dL (0.2-1.0) 0.4 mg/dL (0.2-1.0) Aspartate Amino Transf (AST/SGOT) 24 U/L (15-37) 21 U/L (15-37) Alanine Aminotransferase (ALT/SGPT) 27 U/L (16-63) 27 U/L (16-63) Alkaline Phosphatase 60 U/L (46-116) 60 U/L (46-116) Total Protein 7.0 g/dL (6.4-8.2) 7.0 g/dL (6.4-8.2) Albumin 2.8 g/dL (3.4-5.0) 2.9 g/dL (3.4-5.0) Albumin/Globulin Ratio 0.7 (1.0-1.7) 0.7 (1.0-1.7) Laboratory Tests Test 06/23/18 05:05 White Blood Count 7.1 x10^3/uL (4.0-11.0) Red Blood Count 5.12 x10^6/uL (4.30-5.70) Hemoglobin 15.3 g/dL (13.0-17.5) Hematocrit 43.5 % (39.0-53.0) Mean Corpuscular Volume 85 fL (79-100) Mean Corpuscular Hemoglobin 30 pg (25-35) Mean Corpuscular Hemoglobin Concent 35 g/dL (31-37) Red Cell Distribution Width 12.9 % (11.5-14.5) Platelet Count 238 x10^3/uL (140-400) Neutrophils (%) (Auto) 58 % (31-73) Lymphocytes (%) (Auto) 27 % (24-48) Monocytes (%) (Auto) 8 % (0-9) Eosinophils (%) (Auto) 7 % (0-3) Basophils (%) (Auto) 0 % (0-3) Neutrophils # (Auto) 4.1 x10^3uL (1.8-7.7) Lymphocytes # (Auto) 1.9 x10^3/uL (1.0-4.8) Monocytes # (Auto) 0.6 x10^3/uL (0.0-1.1) Eosinophils # (Auto) 0.5 x10^3/uL (0.0-0.7) Basophils # (Auto) 0.0 x10^3/uL (0.0-0.2) Sodium Level 135 mmol/L (136-145) Potassium Level 4.0 mmol/L (3.5-5.1) Chloride Level 99 mmol/L (98-107) Carbon Dioxide Level 28 mmol/L (21-32) Anion Gap 8 (6-14) Blood Urea Nitrogen 13 mg/dL (8-26) Creatinine 0.8 mg/dL (0.7-1.3) Estimated GFR (Cockcroft-Gault) 128.3 BUN/Creatinine Ratio 16 (6-20) Glucose Level 99 mg/dL (70-99) Calcium Level 8.6 mg/dL (8.5-10.1) Total Bilirubin 0.4 mg/dL (0.2-1.0) Aspartate Amino Transf (AST/SGOT) 21 U/L (15-37) Alanine Aminotransferase (ALT/SGPT) 27 U/L (16-63) Alkaline Phosphatase 60 U/L (46-116) Total Protein 7.0 g/dL (6.4-8.2) Albumin 2.9 g/dL (3.4-5.0) Albumin/Globulin Ratio 0.7 (1.0-1.7) Microbiology 06/17/18 Urine Culture - Final, Complete 06/17/18 Urine Culture Result 1 (JOJO) - Final, Complete Medications Current Medications Fentanyl Citrate (Fentanyl 2ml Vial) 50 mcg 1X ONCE IV Last administered on 06/17/18at 12:43; Start 06/17/18 at 12:45; Stop 06/17/18 at 12:49; Status DC Haloperidol Lactate (Haldol Inj) 5 mg 1X ONCE IM Last administered on 06/17/18at 12:43; Start 06/17/18 at 12:45; Stop 06/17/18 at 12:49; Status DC Iohexol (Omnipaque 300 Mg/ml) 75 ml 1X ONCE IV Last administered on 06/17/18at 13:26; Start 06/17/18 at 13:00; Stop 06/17/18 at 13:01; Status DC Ondansetron HCl (Zofran) 4 mg PRN Q8HRS PRN IV NAUSEA/VOMITING; Start 06/17/18 at 14:15; Stop 06/18/18 at 14:14; Status DC Morphine Sulfate (Morphine Sulfate) 6 mg PRN Q2HR PRN IV PAIN Last administered on 06/18/18at 14:11; Start 06/17/18 at 14:15; Stop 06/18/18 at 14:14; Status DC Sodium Chloride 1,000 ml @ 125 mls/hr Q8H IV Last administered on 06/18/18at 10:09; Start 06/17/18 at 14:03; Stop 06/18/18 at 14:02; Status DC Sodium Chloride 500 ml @ 500 mls/hr 1X ONCE IV ; Start 06/17/18 at 14:15; Stop 06/17/18 at 15:14; Status DC Sodium Chloride 1,000 ml @ 1,000 mls/hr 1X ONCE IV Last administered on 06/17/18at 14:29; Start 06/17/18 at 14:15; Stop 06/17/18 at 15:14; Status DC Cefazolin Sodium/ Dextrose 50 ml @ 100 mls/hr 1X ONCE IV Last administered on 06/17/18at 17:15; Start 06/17/18 at 16:00; Stop 06/17/18 at 16:29; Status DC Metronidazole 100 ml @ 100 mls/hr 1X ONCE IV ; Start 06/17/18 at 16:00; Stop 06/17/18 at 16:59; Status DC Sevoflurane (Ultane) 90 ml STK-MED ONCE IH ; Start 06/17/18 at 16:07; Stop 06/17/18 at 16:09; Status DC Midazolam HCl (Versed) 2 mg STK-MED ONCE .ROUTE ; Start 06/17/18 at 16:08; Stop 06/17/18 at 16:09; Status DC Fentanyl Citrate (Fentanyl 2ml Vial) 100 mcg STK-MED ONCE .ROUTE ; Start 06/17/18 at 16:08; Stop 06/17/18 at 16:09; Status DC Succinylcholine Chloride (Anectine) 200 mg STK-MED ONCE .ROUTE ; Start 06/17/18 at 16:08; Stop 06/17/18 at 16:09; Status DC Glycopyrrolate (Robinul) 1 mg STK-MED ONCE .ROUTE ; Start 06/17/18 at 16:08; Stop 06/17/18 at 16:09; Status DC Neostigmine Methylsulfate (Neostigmine Methylsulfate) 5 mg STK-MED ONCE .ROUTE ; Start 06/17/18 at 16:08; Stop 06/17/18 at 16:09; Status DC Rocuronium [place] (Zemuron) 50 mg STK-MED ONCE .ROUTE ; Start 06/17/18 at 16:08; Stop 06/17/18 at 16:09; Status DC Dexamethasone Sodium Phosphate (Decadron) 4 mg STK-MED ONCE .ROUTE ; Start 06/17/18 at 16:09; Stop 06/17/18 at 16:10; Status DC Propofol 20 ml @ As Directed STK-MED ONCE IV ; Start 06/17/18 at 16:09; Stop 06/17/18 at 16:10; Status DC Lidocaine HCl (Lidocaine Pf 2% Vial) 5 ml STK-MED ONCE .ROUTE ; Start 06/17/18 at 16:09; Stop 06/17/18 at 16:10; Status DC Ondansetron HCl (Zofran) 4 mg STK-MED ONCE .ROUTE ; Start 06/17/18 at 16:09; St op 06/17/18 at 16:10; Status DC Ketorolac Tromethamine (Toradol For Or Only) 30 mg STK-MED ONCE INJ ; Start 06/17/18 at 16:09; Stop 06/17/18 at 16:10; Status DC Ondansetron HCl (Zofran) 4 mg PRN Q6HRS PRN IV NAUSEA/VOMITING; Start 06/17/18 at 16:15; Stop 06/18/18 at 16:14; Status DC Fentanyl Citrate (Fentanyl 2ml Vial) 25 mcg PRN Q5MIN PRN IV MILD PAIN; Start 06/17/18 at 16:15; Stop 06/18/18 at 16:14; Status DC Fentanyl Citrate (Fentanyl 2ml Vial) 50 mcg PRN Q5MIN PRN IV MODERATE TO SEVERE PAIN Last administered on 06/17/18at 19:45; Start 06/17/18 at 16:15; Stop 06/18/18 at 16:14; Status DC Morphine Sulfate (Morphine Sulfate) 1 mg PRN Q10MIN PRN IV SEVERE PAIN; Start 06/17/18 at 16:15; Stop 06/18/18 at 16:14; Status DC Ringer's Solution 1,000 ml @ 30 mls/hr Q24H IV ; Start 06/17/18 at 16:03; Stop 06/18/18 at 04:02; Status DC Lidocaine HCl (Xylocaine-Mpf 1% 2ml Vial) 2 ml 1X PRN PRN ID IV START; Start 06/17/18 at 16:15; Stop 06/18/18 at 16:14; Status DC Hydromorphone HCl (Dilaudid) 0.5 mg PRN Q10MIN PRN IV SEV PAIN, Second choice; Start 06/17/18 at 16:15; Stop 06/18/18 at 16:14; Status DC Prochlorperazine Edisylate (Compazine) 5 mg PACU PRN PRN IV NAUSEA, MRX1 Last administered on 06/17/18at 19:47; Start 06/17/18 at 16:15; Stop 06/18/18 at 16:14; Status DC Bupivacaine HCl/ Epinephrine Bitart (Sensorcain-Mpf Epi 0.5%-1:762261) 30 ml STK-MED ONCE .ROUTE ; Start 06/17/18 at 15:28; Stop 06/17/18 at 16:29; Status DC Famotidine (Pepcid Vial) 20 mg STK-MED ONCE .ROUTE ; Start 06/17/18 at 17:32; Stop 06/17/18 at 17:34; Status DC Midazolam HCl (Versed) 2 mg STK-MED ONCE .ROUTE ; Start 06/17/18 at 17:33; Stop 06/17/18 at 17:34; Status DC Ephedrine Sulfate (ePHEDrine PF IN SALINE SYRINGE) 50 mg STK-MED ONCE IV ; Start 06/17/18 at 17:58; Stop 06/17/18 at 17:59; Status DC Sevoflurane (Ultane) 60 ml STK-MED ONCE IH ; Start 06/17/18 at 18:22; Stop 06/17/18 at 18:23; Status DC Morphine Sulfate (Morphine Sulfate) 6 mg PRN Q6HRS PRN IV PAIN Last administered on 06/19/18at 13:43; Start 06/18/18 at 18:45; Stop 06/19/18 at 19:44; Status DC Sodium Chloride 1,000 ml @ 100 mls/hr Q10H IV Last administered on 06/23/18 10:26; Start 06/18/18 at 19:00 Famotidine (Pepcid Vial) 20 mg BID IVP Last administered on 06/23/18 10:24; Start 06/19/18 at 10:00 Oxycodone/ Acetaminophen (Percocet 5/325) 1 tab PRN Q4HRS PRN PO PAIN Last administered on 06/23/18 10:25; Start 06/19/18 at 12:45 Throat Lozenges (Cepacol Sore Throat Lozenge) 1 kayli PRN Q2HRS PRN PO SORE THROAT Last administered on 06/22/18 06:17; Start 06/19/18 at 14:00 Nicotine (Nicoderm Cq 14mg) 1 patch PRN DAILY PRN TD SMOKING CESSATION Last administered on 06/21/18 09:21; Start 06/19/18 at 14:00 Morphine Sulfate (Morphine Sulfate) 8 mg PRN Q4HRS PRN IV MODERATE TO SEVERE PAIN Last administered on 06/23/18 10:25; Start 06/19/18 at 19:45 Enoxaparin Sodium (Lovenox 40mg Syringe) 40 mg Q24H SQ Last administered on 06/23/18 10:24; Start 06/22/18 at 09:00 Vitals/I & O Vital Sign - Last 24 Hours 06/22/18 06/22/18 06/22/18 06/22/18 14:53 14:54 15:00 15:24 Temp 98.3 98.3 Pulse 81 Resp 18 18 18 18 B/P (MAP) 120/87 (98) Pulse Ox 100 100 100 O2 Delivery Room Air Room Air Room Air O2 Flow Rate 10.0 06/22/18 06/22/18 06/22/18 06/22/18 15:53 19:00 19:46 19:48 Temp 98.9 98.9 Pulse 61 Resp 16 16 B/P (MAP) 124/88 (100) Pulse Ox 99 100 100 O2 Delivery Room Air Room Air Room Air 06/22/18 06/22/18 06/22/18 06/22/18 20:00 23:15 23:54 23:55 Temp 98.6 98.6 Pulse 66 Resp 18 B/P (MAP) 125/81 (96) Pulse Ox 99 O2 Delivery Room Air Room Air Room Air Room Air 06/23/18 06/23/18 06/23/18 06/23/18 00:25 03:44 06:25 06:25 Temp 97.5 97.5 Pulse 56 Resp 18 B/P (MAP) 125/86 (99) Pulse Ox 99 96 O2 Delivery Room Air Room Air Room Air 06/23/18 06/23/18 06/23/18 06/23/18 07:00 08:00 10:25 10:25 Temp 98.0 98.0 Pulse 55 Resp 17 B/P (MAP) 111/85 (94) Pulse Ox 99 99 99 O2 Delivery Room Air Room Air Room Air Room Air 06/23/18 06/23/18 06/23/18 11:00 11:00 11:25 Temp 98.1 98.1 Pulse 57 Resp 17 B/P (MAP) 112/84 (93) Pulse Ox 99 99 O2 Delivery Room Air Room Air Room Air Intake and Output0 06/22/18 06/22/18 06/23/18 14:59 22:59 06:59 Intake Total 480 ml Balance 480 ml CRYSTAL JAY MD June 23, 2018 14:51
[2018-06-23 15:00] VITALS: BP 126/83
[2018-06-23 19:41] VITALS: BP 120/72
[2018-06-23 23:15] VITALS: BP 114/85
[2018-06-24 03:15] VITALS: BP 114/88
[2018-06-24] MEDS: MORPHINE SULFATE 10 MG/ML VIAL. IV PRN ×4 (04:12→19:36)
[2018-06-24] MEDS: oxyCODONE/APAP 5/325 1 TAB TABLET PO PRN ×4 (04:12→19:37)
[2018-06-24] MEDS: IV NORMAL SALINE 1000ML BAG 1,000 ML IV SCH ×2 (05:58→14:41)
[2018-06-24 07:00] VITALS: BP 125/81
[2018-06-24] MEDS: FAMOTIDINE 20 MG/2 ML VIAL IVP SCH (09:20)
[2018-06-24] MEDS: ENOXAPARIN 40 MG/0.4 ML SYRINGE. SQ SCH (09:21)
--- NOTE | 2018-06-24 09:49 | PDOC ---
Subjective: Subjective: "You woke me up, that's how I'm doing." Denies stool but is passing gas. Objective: Vital Signs: Vital Signs Date Time Temp Pulse Resp B/P (MAP) Pulse Ox O2 Delivery O2 Flow Rate FiO2 06/24/18 09:21 Room Air 06/24/18 07:00 98.3 59 20 125/81 (96) 98 98.3 PE: GEN: NAD LUNGS: CTAB HEART: RRR ABD: occasional gurgle, not particularly tender, soft NEURO/PSYCH: A & O 3 A/P: S/p release of SBO and MODESTO -- Continue per surgery. JOHNATHAN EVANS June 24, 2018 09:49
--- NOTE | 2018-06-24 10:12 | PDOC ---
PROGRESS NOTES Chief Complaint Chief Complaint DATE OF SURGERY: 06/17/2018 PREOPERATIVE DIAGNOSIS: Small-bowel obstruction with possible ischemia. POSTOPERATIVE DIAGNOSIS: Small bowel obstruction secondary to adhesions with some vascular embarrassment to the small bowel. PROCEDURE: Laparoscopic converted to open exploration with release of small-bowel obstruction and lysis of adhesions. SURGEON: Uriel Queen MD AGRICULTURAL TECHNICAL OFFICER: JORDEN Brice. ANESTHESIA: General endotracheal. ESTIMATED BLOOD LOSS: 25. INTRAVENOUS: 800. URINE OUTPUT: 700. INDICATIONS: The patient is a 42-year-old with severe abdominal pain, elevated lactic acid, CT scan suggesting internal hernia with possible threatened bowel. History of Present Illness History of Present Illness VTE Prophylaxis Ordered VTE Prophylaxis Devices: Yes VTE Pharmacological Prophylaxi: Yes Assessment/Plan Assessment/Plan IMPRESSION 1. evidence of small bowel obstruction with transition in the left abdomen, somewhat rotational appearance of mesenteric fat and vasculature in the left abdomen as may be seen with component of mesenteric volvulus. There is associated long segment small bowel wall thickening. There is no significant free fluid or free air. There is distention of stomach. 2. distention of the urinary bladder. 3. lactic acidosis 4. acute abdomen 5. meth abuse hx 06/22 passing flatus, no BM YET, walking in halls plan admit [place] FOLLOWING npo iv fluid support iv pain control gi consult progressive ambulation frequent labs PAIN WORSE 5/3 MADE NPO 06/24 now on reg diet still high risk for recovery with meth abuse 33 min pt exam, chart review,> 50% of time spent with exam, chart review, pt care coordination/// high risk for recovery given hx substance abuse Vitals Vitals Vital Signs Date Time Temp Pulse Resp B/P (MAP) Pulse Ox O2 Delivery O2 Flow Rate FiO2 06/24/18 09:51 Room Air 06/24/18 07:00 98.3 59 20 125/81 (96) 98 98.3 Physical Exam General: Alert, Oriented X3, Cooperative, No acute distress Heart: Regular rate, Normal S1, Normal S2, No murmurs Lungs: Clear Abdomen: Soft, No tenderness Extremities: No cyanosis, No edema Skin: No rashes, No breakdown, No significant lesion Assessment and Plan Assessmemt and Plan Problems Medical Problems: (1) Small bowel obstruction Status: Acute Comment Review of Relevant I have reviewed the following items brianna (where applicable) has been applied. Labs Laboratory Tests Test 06/23/18 05:05 White Blood Count 7.1 x10^3/uL (4.0-11.0) Red Blood Count 5.12 x10^6/uL (4.30-5.70) Hemoglobin 15.3 g/dL (13.0-17.5) Hematocrit 43.5 % (39.0-53.0) Mean Corpuscular Volume 85 fL (79-100) Mean Corpuscular Hemoglobin 30 pg (25-35) Mean Corpuscular Hemoglobin Concent 35 g/dL (31-37) Red Cell Distribution Width 12.9 % (11.5-14.5) Platelet Count 238 x10^3/uL (140-400) Neutrophils (%) (Auto) 58 % (31-73) Lymphocytes (%) (Auto) 27 % (24-48) Monocytes (%) (Auto) 8 % (0-9) Eosinophils (%) (Auto) 7 % (0-3) Basophils (%) (Auto) 0 % (0-3) Neutrophils # (Auto) 4.1 x10^3uL (1.8-7.7) Lymphocytes # (Auto) 1.9 x10^3/uL (1.0-4.8) Monocytes # (Auto) 0.6 x10^3/uL (0.0-1.1) Eosinophils # (Auto) 0.5 x10^3/uL (0.0-0.7) Basophils # (Auto) 0.0 x10^3/uL (0.0-0.2) Sodium Level 135 mmol/L (136-145) Potassium Level 4.0 mmol/L (3.5-5.1) Chloride Level 99 mmol/L (98-107) Carbon Dioxide Level 28 mmol/L (21-32) Anion Gap 8 (6-14) Blood Urea Nitrogen 13 mg/dL (8-26) Creatinine 0.8 mg/dL (0.7-1.3) Estimated GFR (Cockcroft-Gault) 128.3 BUN/Creatinine Ratio 16 (6-20) Glucose Level 99 mg/dL (70-99) Calcium Level 8.6 mg/dL (8.5-10.1) Total Bilirubin 0.4 mg/dL (0.2-1.0) Aspartate Amino Transf (AST/SGOT) 21 U/L (15-37) Alanine Aminotransferase (ALT/SGPT) 27 U/L (16-63) Alkaline Phosphatase 60 U/L (46-116) Total Protein 7.0 g/dL (6.4-8.2) Albumin 2.9 g/dL (3.4-5.0) Albumin/Globulin Ratio 0.7 (1.0-1.7) Microbiology 06/17/18 Urine Culture - Final, Complete 06/17/18 Urine Culture Result 1 (JOJO) - Final, Complete Medications Current Medications Fentanyl Citrate (Fentanyl 2ml Vial) 50 mcg 1X ONCE IV Last administered on 06/17/18at 12:43; Start 06/17/18 at 12:45; Stop 06/17/18 at 12:49; Status DC Haloperidol Lactate (Haldol Inj) 5 mg 1X ONCE IM Last administered on 06/17/18at 12:43; Start 06/17/18 at 12:45; Stop 06/17/18 at 12:49; Status DC Iohexol (Omnipaque 300 Mg/ml) 75 ml 1X ONCE IV Last administered on 06/17/18at 13:26; Start 06/17/18 at 13:00; Stop 06/17/18 at 13:01; Status DC Ondansetron HCl (Zofran) 4 mg PRN Q8HRS PRN IV NAUSEA/VOMITING; Start 06/17/18 at 14:15; Stop 06/18/18 at 14:14; Status DC Morphine Sulfate (Morphine Sulfate) 6 mg PRN Q2HR PRN IV PAIN Last administered on 06/18/18at 14:11; Start 06/17/18 at 14:15; Stop 06/18/18 at 14:14; Status DC Sodium Chloride 1,000 ml @ 125 mls/hr Q8H IV Last administered on 06/18/18at 10 :09; Start 06/17/18 at 14:03; Stop 06/18/18 at 14:02; Status DC Sodium Chloride 500 ml @ 500 mls/hr 1X ONCE IV ; Start 06/17/18 at 14:15; Stop 06/17/18 at 15:14; Status DC Sodium Chloride 1,000 ml @ 1,000 mls/hr 1X ONCE IV Last administered on at 14:29; Start 06/17/18 at 14:15; Stop 06/17/18 at 15:14; Status DC Cefazolin Sodium/ Dextrose 50 ml @ 100 mls/hr 1X ONCE IV Last administered on 06/17/18at 17:15; Start 06/17/18 at 16:00; Stop 06/17/18 at 16:29; Status DC Metronidazole 100 ml @ 100 mls/hr 1X ONCE IV ; Start 06/17/18 at 16:00; Stop 06/17/18 at 16:59; Status DC Sevoflurane (Ultane) 90 ml STK-MED ONCE IH ; Start 06/17/18 at 16:07; Stop 06/17/18 at 16:09; Status DC Midazolam HCl (Versed) 2 mg STK-MED ONCE .ROUTE ; Start 06/17/18 at 16:08; Stop 06/17/18 at 16:09; Status DC Fentanyl Citrate (Fentanyl 2ml Vial) 100 mcg STK-MED ONCE .ROUTE ; Start 06/17/18 at 16:08; Stop 06/17/18 at 16:09; Status DC Succinylcholine Chloride (Anectine) 200 mg STK-MED ONCE .ROUTE ; Start 06/17/18 at 16:08; Stop 06/17/18 at 16:09; Status DC Glycopyrrolate (Robinul) 1 mg STK-MED ONCE .ROUTE ; Start 06/17/18 at 16:08; Stop 06/17/18 at 16:09; Status DC Neostigmine Methylsulfate (Neostigmine Methylsulfate) 5 mg STK-MED ONCE .ROUTE ; Start 06/17/18 at 16:08; Stop 06/17/18 at 16:09; Status DC Rocuronium [place] (Zemuron) 50 mg STK-MED ONCE .ROUTE ; Start 06/17/18 at 16:08; Stop 06/17/18 at 16:09; Status DC Dexamethasone Sodium Phosphate (Decadron) 4 mg STK-MED ONCE .ROUTE ; Start 06/17/18 at 16:09; Stop 06/17/18 at 16:10; Status DC Propofol 20 ml @ As Directed STK-MED ONCE IV ; Start 06/17/18 at 16:09; Stop 06/17/18 at 16:10; Status DC Lidocaine HCl (Lidocaine Pf 2% Vial) 5 ml STK-MED ONCE .ROUTE ; Start 06/17/18 at 16:09; Stop 06/17/18 at 16:10; Status DC Ondansetron HCl (Zofran) 4 mg STK-MED ONCE .ROUTE ; Start 06/17/18 at 16:09; Stop 06/17/18 at 16:10; Status DC Ketorolac Tromethamine (Toradol For Or Only) 30 mg STK-MED ONCE INJ ; Start 06/17/18 at 16:09; Stop 06/17/18 at 16:10; Status DC Ondansetron HCl (Zofran) 4 mg PRN Q6HRS PRN IV NAUSEA/VOMITING; Start 06/17/18 at 16:15; Stop 06/18/18 at 16:14; Status DC Fentanyl Citrate (Fentanyl 2ml Vial) 25 mcg PRN Q5MIN PRN IV MILD PAIN; Start 06/17/18 at 16:15; Stop 06/18/18 at 16:14; Status DC Fentanyl Citrate (Fentanyl 2ml Vial) 50 mcg PRN Q5MIN PRN IV MODERATE TO SEVERE PAIN Last administered on 06/17/18at 19:45; Start 06/17/18 at 16:15; Stop 06/18/18 at 16:14; Status DC Morphine Sulfate (Morphine Sulfate) 1 mg PRN Q10MIN PRN IV SEVERE PAIN; Start 06/17/18 at 16:15; Stop 06/18/18 at 16:14; Status DC Ringer's Solution 1,000 ml @ 30 mls/hr Q24H IV ; Start 06/17/18 at 16:03; Stop 06/18/18 at 04:02; Status DC Lidocaine HCl (Xylocaine-Mpf 1% 2ml Vial) 2 ml 1X PRN PRN ID IV START; Start 06/17/18 at 16:15; Stop 06/18/18 at 16:14; Status DC Hydromorphone HCl (Dilaudid) 0.5 mg PRN Q10MIN PRN IV SEV PAIN, Second choice; Start 06/17/18 at 16:15; Stop 06/18/18 at 16:14; Status DC Prochlorperazine Edisylate (Compazine) 5 mg PACU PRN PRN IV NAUSEA, MRX1 Last administered on 06/17/18at 19:47; Start 06/17/18 at 16:15; Stop 06/18/18 at 16:14; Status DC Bupivacaine HCl/ Epinephrine Bitart (Sensorcain-Mpf Epi 0.5%-1:[id number]) 30 ml STK-MED ONCE .ROUTE ; Start 06/17/18 at 15:28; Stop 06/17/18 at 16:29; Status DC Famotidine (Pepcid Vial) 20 mg STK-MED ONCE .ROUTE ; Start 06/17/18 at 17:32; Stop 06/17/18 at 17:34; Status DC Midazolam HCl (Versed) 2 mg STK-MED ONCE .ROUTE ; Start 06/17/18 at 17:33; Stop 06/17/18 at 17:34; Status DC Ephedrine Sulfate (ePHEDrine PF IN SALINE SYRINGE) 50 mg STK-MED ONCE IV ; Start 06/17/18 at 17:58; Stop 06/17/18 at 17:59; Status DC Sevoflurane (Ultane) 60 ml STK-MED ONCE IH ; Start 06/17/18 at 18:22; Stop 06/17/18 at 18:23; Status DC Morphine Sulfate (Morphine Sulfate) 6 mg PRN Q6HRS PRN IV PAIN Last administered on 06/19/18at 13:43; Start 06/18/18 at 18:45; Stop 06/19/18 at 19:44; Status DC Sodium Chloride 1,000 ml @ 100 mls/hr Q10H IV Last administered on 06/24/18at 05:58; Start 06/18/18 at 19:00 Famotidine (Pepcid Vial) 20 mg BID IVP Last administered on 06/24/18at 09:20; Start 06/19/18 at 10:00; Stop 06/24/18 at 09:49; Status DC Oxycodone/ Acetaminophen (Percocet 5/325) 1 tab PRN Q4HRS PRN PO PAIN Last administered on 06/24/18at 09:21; Start 06/19/18 at 12:45 Throat Lozenges (Cepacol Sore Throat Lozenge) 1 kayli PRN Q2HRS PRN PO SORE THROAT Last administered on 06/22/18at 06:17; Start 06/19/18 at 14:00 Nicotine (Nicoderm Cq 14mg) 1 patch PRN DAILY PRN TD SMOKING CESSATION Last administered on 06/21/18 09:21; Start 06/19/18 at 14:00 Morphine Sulfate (Morphine Sulfate) 8 mg PRN Q4HRS PRN IV MODERATE TO SEVERE PAIN Last administered on 06/24/18at 09:20; Start 06/19/18 at 19:45 Enoxaparin Sodium (Lovenox 40mg Syringe) 40 mg Q24H SQ Last administered on 06/24/18at 09:21; Start 06/22/18 at 09:00 Pantoprazole Sodium (Protonix) 40 mg DAILYAC PO ; Start 06/25/18 at 07:30 Vitals/I & O Vital Sign - Last 24 Hours 06/23/18 06/23/18 06/23/18 06/23/18 10:25 10:25 11:00 15:00 Temp 98.1 97.9 98.1 97.9 Pulse 57 57 Resp 17 17 B/P (MAP) 112/84 (93) 126/83 (97) Pulse Ox 99 99 99 98 O2 Delivery Room Air Room Air Room Air Room Air 06/23/18 06/23/18 06/23/18 06/23/18 15:05 15:05 18:55 18:55 Pulse Ox 99 O2 Delivery Room Air Room Air Room Air Room Air 06/23/18 06/23/18 06/23/18 06/23/18 19:41 20:00 23:12 23:12 Temp 97.9 97.9 Pulse 55 Resp 16 B/P (MAP) 120/72 (88) Pulse Ox 96 96 96 O2 Delivery Room Air Room Air Room Air Room Air 06/23/18 06/24/18 06/24/18 06/24/18 23:15 03:15 04:12 04:12 Temp 98.2 97.4 98.2 97.4 Pulse 62 56 Resp 16 16 B/P (MAP) 114/85 (95) 114/88 (97) Pulse Ox 99 99 96 96 O2 Delivery Room Air Room Air Room Air Room Air 06/24/18 06/24/18 06/24/18 06/24/18 04:42 05:12 07:00 09:20 Temp 98.3 98.3 Pulse 59 Resp 20 B/P (MAP) 125/81 (96) Pulse Ox 96 96 98 O2 Delivery Room Air Room Air Room Air 06/24/18 06/24/18 09:21 09:51 O2 Delivery Room Air Room Air Intake and Output 06/23/18 06/23/18 06/24/18 15:00 23:00 07:00 Intake Total 400 ml 300 ml 700 ml Balance 400 ml 300 ml 700 ml GABRIELA ESQUIVEL MD June 24, 2018 10:12
[2018-06-24 11:00] VITALS: BP 125/66
--- NOTE | 2018-06-24 12:06 | PDOC ---
SURGICAL PROGRESS NOTE Subjective tolerating diet + flatus, no stool yet pain managed Vital Signs Vital Signs Date Time Temp Pulse Resp B/P (MAP) Pulse Ox O2 Delivery O2 Flow Rate FiO2 06/24/18 11:00 97.4 67 20 125/66 (85) 95 Room Air 97.4 I&O Intake and Output 06/24/18 07:00 Intake Total 1400 ml Balance 1400 ml Intake Oral 1400 ml # Voids 4 General: Alert, Oriented X3, Cooperative, No acute distress Abdomen: Soft, Other (incision c/d/i, no erythema ) Labs Laboratory Tests Test 06/23/18 05:05 White Blood Count 7.1 x10^3/uL (4.0-11.0) Red Blood Count 5.12 x10^6/uL (4.30-5.70) Hemoglobin 15.3 g/dL (13.0-17.5) Hematocrit 43.5 % (39.0-53.0) Mean Corpuscular Volume 85 fL (79-100) Mean Corpuscular Hemoglobin 30 pg (25-35) Mean Corpuscular Hemoglobin Concent 35 g/dL (31-37) Red Cell Distribution Width 12.9 % (11.5-14.5) Platelet Count 238 x10^3/uL (140-400) Neutrophils (%) (Auto) 58 % (31-73) Lymphocytes (%) (Auto) 27 % (24-48) Monocytes (%) (Auto) 8 % (0-9) Eosinophils (%) (Auto) 7 % (0-3) Basophils (%) (Auto) 0 % (0-3) Neutrophils # (Auto) 4.1 x10^3uL (1.8-7.7) Lymphocytes # (Auto) 1.9 x10^3/uL (1.0-4.8) Monocytes # (Auto) 0.6 x10^3/uL (0.0-1.1) Eosinophils # (Auto) 0.5 x10^3/uL (0.0-0.7) Basophils # (Auto) 0.0 x10^3/uL (0.0-0.2) Sodium Level 135 mmol/L (136-145) Potassium Level 4.0 mmol/L (3.5-5.1) Chloride Level 99 mmol/L (98-107) Carbon Dioxide Level 28 mmol/L (21-32) Anion Gap 8 (6-14) Blood Urea Nitrogen 13 mg/dL (8-26) Creatinine 0.8 mg/dL (0.7-1.3) Estimated GFR (Cockcroft-Gault) 128.3 BUN/Creatinine Ratio 16 (6-20) Glucose Level 99 mg/dL (70-99) Calcium Level 8.6 mg/dL (8.5-10.1) Total Bilirubin 0.4 mg/dL (0.2-1.0) Aspartate Amino Transf (AST/SGOT) 21 U/L (15-37) Alanine Aminotransferase (ALT/SGPT) 27 U/L (16-63) Alkaline Phosphatase 60 U/L (46-116) Total Protein 7.0 g/dL (6.4-8.2) Albumin 2.9 g/dL (3.4-5.0) Albumin/Globulin Ratio 0.7 (1.0-1.7) Problem List Problems Medical Problems: (1) Small bowel obstruction Status: Acute Assessment/Plan advance diet possible home tomorrow PEACE BOWER APRN June 24, 2018 12:06
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
[2018-06-24 15:00] VITALS: BP 124/88
[2018-06-24 19:00] VITALS: BP 120/85
[2018-06-24 23:00] VITALS: BP 115/78
[2018-06-25] MEDS: IV NORMAL SALINE 1000ML BAG 1,000 ML IV SCH
[2018-06-25 03:00] VITALS: BP 117/88
[2018-06-25] MEDS: oxyCODONE/APAP 5/325 1 TAB TABLET PO PRN ×4 (04:31→12:58)
[2018-06-25] MEDS: MORPHINE SULFATE 10 MG/ML VIAL. IV PRN ×3 (04:31→08:44)
[2018-06-25 07:00] VITALS: BP 114/82
[2018-06-25] MEDS ORDERED: PANTOPRAZOLE 40 MG TABLET.DR. PO SCH (07:30)
[2018-06-25] MEDS: ENOXAPARIN 40 MG/0.4 ML SYRINGE. SQ SCH (08:43)
--- NOTE | 2018-06-25 09:44 | PDOC ---
SURGICAL PROGRESS NOTE Subjective tolerating diet still taking morphine, however pain managed Vital Signs Vital Signs Date Time Temp Pulse Resp B/P (MAP) Pulse Ox O2 Delivery O2 Flow Rate FiO2 06/25/18 09:34 Room Air 06/25/18 07:00 98.1 50 16 114/82 (93) 98 98.1 I&O Intake and Output 06/25/18 07:00 Intake Total 1020 ml Balance 1020 ml Intake Oral 1020 ml # Voids 8 # Bowel Movements 1 General: Alert, Oriented X3, Cooperative, No acute distress Abdomen: Soft, Other (ND, incision c/d/i) Problem List Problems Medical Problems: (1) Small bowel obstruction Status: Acute Assessment/Plan dc morphine if can tolerate percocet only, home after lunch PEACE BOWER INFORMATION TECHNOLOGY DATA ANALYST June 25, 2018 09:44
--- NOTE | 2018-06-25 10:38 | PDOC ---
PROGRESS NOTES Chief Complaint Chief Complaint DATE OF SURGERY: 06/17/2018 PREOPERATIVE DIAGNOSIS: Small-bowel obstruction with possible ischemia. POSTOPERATIVE DIAGNOSIS: Small bowel obstruction secondary to adhesions with some vascular embarrassment to the small bowel. PROCEDURE: Laparoscopic converted to open exploration with release of small-bowel obstruction and lysis of adhesions. SURGEON: Uriel Queen MD SHOT HOLE DRILLER: JORDEN Brice. ANESTHESIA: General endotracheal. ESTIMATED BLOOD LOSS: 25. INTRAVENOUS: 800. URINE OUTPUT: 700. INDICATIONS: The patient is a 42-year-old with severe abdominal pain, elevated lactic acid, CT scan suggesting internal hernia with possible threatened bowel. History of Present Illness History of Present Illness VTE Prophylaxis Ordered VTE Prophylaxis Devices: Yes VTE Pharmacological Prophylaxi: Yes Assessment/Plan Assessment/Plan IMPRESSION 1. evidence of small bowel obstruction with transition in the left abdomen, somewhat rotational appearance of mesenteric fat and vasculature in the left abdomen as may be seen with component of mesenteric volvulus. There is associated long segment small bowel wall thickening. There is no significant free fluid or free air. There is distention of stomach. 2. distention of the urinary bladder. 3. lactic acidosis 4. acute abdomen 5. meth abuse hx / passing flatus, no BM YET, walking in halls plan d/c today 06/25 admit [place] FOLLOWING ok with d/c npo iv fluid support iv pain control gi consult progressive ambulation frequent labs PAIN WORSE 5/3 MADE NPO 5/6 now on reg diet still high risk for recovery with meth abuse 33 min pt exam,d/c planning chart review,> 50% of time spent with exam, chart review, pt care coordination/// high risk for recovery given hx substance abuse Vitals Vitals Vital Signs Date Time Temp Pulse Resp B/P (MAP) Pulse Ox O2 Delivery O2 Flow Rate FiO2 06/25/18 09:34 Room Air 06/25/18 07:00 98.1 50 16 114/82 (93) 98 98.1 Physical Exam General: Alert, Oriented X3, Cooperative, No acute distress Heart: Regular rate, Normal S1, Normal S2, No murmurs Lungs: Clear Abdomen: Normal bowel sounds, Soft, Other (ND, incision c/d/i) Extremities: No cyanosis, No edema Skin: No rashes, No breakdown, No significant lesion Assessment and Plan Assessmemt and Plan Problems Medical Problems: (1) Small bowel obstruction Status: Acute Comment Review of Relevant I have reviewed the following items brianna (where applicable) has been applied. Labs Microbiology 06/17/18 Urine Culture - Final, Complete 06/17/18 Urine Culture Result 1 (JOJO) - Final, Complete Medications Current Medications Fentanyl Citrate (Fentanyl 2ml Vial) 50 mcg 1X ONCE IV Last administered on 06/17/18at 12:43; Start 06/17/18 at 12:45; Stop 06/17/18 at 12:49; Status DC Haloperidol Lactate (Haldol Inj) 5 mg 1X ONCE IM Last administered on 06/17at 12:43; Start 06/17/18 at 12:45; Stop 06/17/18 at 12:49; Status DC Iohexol (Omnipaque 300 Mg/ml) 75 ml 1X ONCE IV Last administered on 06/17/18at 13:26; Start 06/17/18 at 13:00; Stop 06/17/18 at 13:01; Status DC Ondansetron HCl (Zofran) 4 mg PRN Q8HRS PRN IV NAUSEA/VOMITING; Start 06/17/18 at 14:15; Stop 06/18/18 at 14:14; Status DC Morphine Sulfate (Morphine Sulfate) 6 mg PRN Q2HR PRN IV PAIN Last administered on 06/18/18at 14:11; Start 06/17/18 at 14:15; Stop 06/18/18 at 14:14; Status DC Sodium Chloride 1,000 ml @ 125 mls/hr Q8H IV Last administered on 06/18/18at 10:09; Start 06/17/18 at 14:03; Stop 06/18/18 at 14:02; Status DC Sodium Chloride 500 ml @ 500 mls/hr 1X ONCE IV ; Start 06/17/18 at 14:15; Stop 06/17/18 at 15:14; Status DC Sodium Chloride 1,000 ml @ 1,000 mls/hr 1X ONCE IV Last administered on 06/17/18at 14:29; Start 06/17/18 at 14:15; Stop 06/17/18 at 15:14; Status DC Cefazolin Sodium/ Dextrose 50 ml @ 100 mls/hr 1X ONCE IV Last administered on 06/17/18at 17:15; Start 06/17/18 at 16:00; Stop 06/17/18 at 16:29; Status DC Metronidazole 100 ml @ 100 mls/hr 1X ONCE IV ; Start 06/17/18 at 16:00; Stop 06/17/18 at 16:59; Status DC Sevoflurane (Ultane) 90 ml STK-MED ONCE IH ; Start 06/17/18 at 16:07; Stop 06/17/18 at 16:09; Status DC Midazolam HCl (Versed) 2 mg STK-MED ONCE .ROUTE ; Start 06/17/18 at 16:08; Stop 06/17/18 at 16:09; Status DC Fentanyl Citrate (Fentanyl 2ml Vial) 100 mcg STK-MED ONCE .ROUTE ; Start 06/17/18 at 16:08; Stop 06/17/18 at 16:09; Status DC Succinylcholine Chloride (Anectine) 200 mg STK-MED ONCE .ROUTE ; Start 06/17/18 at 16:08; Stop 06/17/18 at 16:09; Status DC Glycopyrrolate (Robinul) 1 mg STK-MED ONCE .ROUTE ; Start 06/17/18 at 16:08; Stop 06/17/18 at 16:09; Status DC Neostigmine Methylsulfate (Neostigmine Methylsulfate) 5 mg STK-MED ONCE .ROUTE ; Start 06/17/18 at 16:08; Stop 06/17/18 at 16:09; Status DC Rocuronium [place] (Zemuron) 50 mg STK-MED ONCE .ROUTE ; Start 06/17/18 at 16:08; Stop 06/17/18 at 16:09; Status DC Dexamethasone Sodium Phosphate (Decadron) 4 mg STK-MED ONCE .ROUTE ; Start 06/17/18 at 16:09; Stop 06/17/18 at 16:10; Status DC Propofol 20 ml @ As Directed STK-MED ONCE IV ; Start 06/17/18 at 16:09; Stop 06/17/18 at 16:10; Status DC Lidocaine HCl (Lidocaine Pf 2% Vial) 5 ml STK-MED ONCE .ROUTE ; Start 06/17/18 at 16:09; Stop 06/17/18 at 16:10; Status DC Ondansetron HCl (Zofran) 4 mg STK-MED ONCE .ROUTE ; Start 06/17/18 at 16:09; Stop 06/17/18 at 16:10; Status DC Ketorolac Tromethamine (Toradol For Or Only) 30 mg STK-MED ONCE INJ ; Start 06/17/18 at 16:09; Stop 06/17/18 at 16:10; Status DC Ondansetron HCl (Zofran) 4 mg PRN Q6HRS PRN IV NAUSEA/VOMITING; Start 06/17/18 at 16:15; Stop 06/18/18 at 16:14; Status DC Fentanyl Citrate (Fentanyl 2ml Vial) 25 mcg PRN Q5MIN PRN IV MILD PAIN; Start 06/17/18 at 16:15; Stop 06/18/18 at 16:14; Status DC Fentanyl Citrate (Fentanyl 2ml Vial) 50 mcg PRN Q5MIN PRN IV MODERATE TO SEVERE PAIN Last administered on 06/17/18at 19:45; Start 06/17/18 at 16:15; Stop 06/18/18 at 16:14; Status DC Morphine Sulfate (Morphine Sulfate) 1 mg PRN Q10MIN PRN IV SEVERE PAIN; Start 06/17/18 at 16:15; Stop 06/18/18 at 16:14; Status DC Ringer's Solution 1,000 ml @ 30 mls/hr Q24H IV ; Start 06/17/18 at 16:03; Stop 06/18/18 at 04:02; Status DC Lidocaine HCl (Xylocaine-Mpf 1% 2ml Vial) 2 ml 1X PRN PRN ID IV START; Start 06/17/18 at 16:15; Stop 06/18/18 at 16:14; Status DC Hydromorphone HCl (Dilaudid) 0.5 mg PRN Q10MIN PRN IV SEV PAIN, Second choice; Start 06/17/18 at 16:15; Stop 06/18/18 at 16:14; Status DC Prochlorperazine Edisylate (Compazine) 5 mg PACU PRN PRN IV NAUSEA, MRX1 Last administered on 06/17/18at 19:47; Start 06/17/18 at 16:15; Stop 06/18/18 at 16:14; Status DC Bupivacaine HCl/ Epinephrine Bitart (Sensorcain-Mpf Epi 0.5%-1:714265) 30 ml STK-MED ONCE .ROUTE ; Start 06/17/18 at 15:28; Stop 06/17/18 at 16:29; Status DC Famotidine (Pepcid Vial) 20 mg STK-MED ONCE .ROUTE ; Start 06/17/18 at 17:32; Stop 06/17/18 at 17:34; Status DC Midazolam HCl (Versed) 2 mg STK-MED ONCE .ROUTE ; Start 06/17/18 at 17:33; Stop 06/17/18 at 17:34; Status DC Ephedrine Sulfate (ePHEDrine PF IN SALINE SYRINGE) 50 mg STK-MED ONCE IV ; Start 06/17/18 at 17:58; Stop 06/17/18 at 17:59; Status DC Sevoflurane (Ultane) 60 ml STK-MED ONCE IH ; Start 06/17/18 at 18:22; Stop 06/17/18 at 18:23; Status DC Morphine Sulfate (Morphine Sulfate) 6 mg PRN Q6HRS PRN IV PAIN Last administered on 06/19/18at 13:43; Start 06/18/18 at 18:45; Stop 06/19/18 at 19:44; Status DC Sodium Chloride 1,000 ml @ 100 mls/hr Q10H IV Last administered on 06/25/18at 00:00; Start 06/18/18 at 19:00 Famotidine (Pepcid Vial) 20 mg BID IVP Last administered on 06/24/18at 09:20; Start 06/19/18 at 10:00; Stop 06/24/18 at 09:49; Status DC Oxycodone/ Acetaminophen (Percocet 5/325) 1 tab PRN Q4HRS PRN PO PAIN Last administered on 06/25/18at 08:43; Start 06/19/18 at 12:45 Throat Lozenges (Cepacol Sore Throat Lozenge) 1 kayli PRN Q2HRS PRN PO SORE THROAT Last administered on 06/22/18 06:17; Start 06/19/18 at 14:00 Nicotine (Nicoderm Cq 14mg) 1 patch PRN DAILY PRN TD SMOKING CESSATION Last administered on 06/21/18at 09:21; Start 06/19/18 at 14:00 Morphine Sulfate (Morphine Sulfate) 8 mg PRN Q4HRS PRN IV MODERATE TO SEVERE PAIN Last administered on 06/25/18at 08:44; Start 06/19/18 at 19:45; Stop 06/25/18 at 09:36; Status DC Enoxaparin Sodium (Lovenox 40mg Syringe) 40 mg Q24H SQ Last administered on 06/25/18at 08:43; Start 06/22/18 at 09:00 Pantoprazole Sodium (Protonix) 40 mg DAILYAC PO Last administered on 06/25/18at 06:03; Start 06/25/18 at 07:30 Vitals/I & O Vital Sign - Last 24 Hours 06/24/18 06/24/18 06/24/18 06/24/18 11:00 14:35 14:35 15:00 Temp 97.4 98.0 97.4 98.0 Pulse 67 62 Resp 20 20 B/P (MAP) 125/66 (85) 124/88 (100) Pulse Ox 95 97 O2 Delivery Room Air Room Air Room Air Room Air 06/24/18 06/24/18 06/24/18 06/24/18 19:00 19:36 19:37 20:00 Temp 98.6 98.6 Pulse 59 Resp 20 B/P (MAP) 120/85 (97) Pulse Ox 98 97 97 O2 Delivery Room Air Room Air Room Air 06/24/18 06/25/18 06/25/18 06/25/18 23:00 00:00 00:00 03:00 Temp 98.2 98.1 98.2 98.1 Pulse 55 53 Resp 20 20 B/P (MAP) 115/78 (90) 117/88 (98) Pulse Ox 99 97 97 99 O2 Delivery Room Air Room Air Room Air Room Air 06/25/18 06/25/18 06/25/18 06/25/18 04:31 04:31 05:01 05:31 Pulse Ox 99 99 99 99 O2 Delivery Room Air Room Air 06/25/18 06/25/18 06/25/18 06/25/18 07:00 08:15 08:43 08:44 Temp 98.1 98.1 Pulse 50 Resp 16 B/P (MAP) 114/82 (93) Pulse Ox 98 O2 Delivery Room Air Room Air Room Air Room Air 06/25/18 06/25/18 09:34 09:34 O2 Delivery Room Air Room Air Intake and Output 06/24/18 06/24/18 06/25/18 14:59 22:59 06:59 Intake Total 580 ml 340 ml 100 ml Balance 580 ml 340 ml 100 ml GABRIELA ESQUIVEL MD June 25, 2018 10:38
--- NOTE | 2018-06-25 10:58 | NUR ---
SW following for discharge planning. Discussed with RN, pt no longer receiving IV morphine. Possible discharge home today with self care. RN advised no SW needs, pt has received the self pay resources.
[2018-06-25 11:00] VITALS: BP 112/83
--- NOTE | 2018-06-25 11:59 | PDOC ---
Subjective: Subjective: Doing better, going home. Objective: Objective: Reviewed chart - possible DC after lunch if pain managed with Percocet. Vital Signs: Vital Signs Date Time Temp Pulse Resp B/P (MAP) Pulse Ox O2 Delivery O2 Flow Rate FiO2 06/25/18 11:00 97.5 55 16 112/83 (93) 99 Room Air 97.5 PE: GEN: NAD LUNGS: CTAB HEART: RRR ABD: soft NEURO/PSYCH: A & O 3 A/P: S/p release of SBO and MODESTO -- DC per primary. JOHNATHAN EVANS June 25, 2018 11:59
[2018-06-25] MEDS ORDERED: Pantoprazole PO (13:05)
[2018-06-25] MEDS ORDERED: OXYC1TAB15 PO (13:05)
--- NOTE | 2018-06-25 13:06 | DISCH ---
DISCHARGE INSTRUCTIONS Condition on Discharge Condition on Discharge: Stable Activity After Discharge Activity Instructions for Disc: Activity as tolerated Bathing Instructions: Shower-keep dressing dry Lifting Instructions after Dis: No heavy lifting, No pulling or pushing Driving Instructions after Dis: Do not drive Diet after Discharge Diet after Discharge: Regular Wound Incision Care Wound/Incision Care: Reinforce dressing PRN Checks after Discharge Checks after discharge: Check blood press - daily Contacting the DR. after DC Call your doctor for: If your condition worsens GABRIELA ESQUIVEL MD June 25, 2018 13:06
--- NOTE | 2018-06-25 13:27 | NUR ---
Pt discharged home with no additional services, ambulated to hospital entrance accompanied by friend. Discharge education and information regarding Dx provided to Pt who verbalized understanding and had no further questions. Pt denied having a BM this morning but later on he stated he had a small BM last night but he forgot to let staff know. No other changes from previous assessment.
--- NOTE | 2018-07-30 13:24 | PDOC3 ---
Discharge Summary Date of Discharge: June 25, 2018 Follow-Up: 3-5 days Admitting Diagnosis comment: History of Present Illness History of Present Illness VTE Prophylaxis Ordered VTE Prophylaxis Devices: Yes VTE Pharmacological Prophylaxi: Yes discharge dx acute small bowel obstruction with transition in the left abdomen, somewhat rotational appearance of mesenteric fat and vasculature in the left abdomen as may be seen with component of mesenteric volvulus. There is associated long segment small bowel wall thickening. There is no significant free fluid or free air. There is distention of stomach. 2. distention of the urinary bladder. 3. lactic acidosis 4. acute abdomen 5. meth abuse hx 06/22 passing flatus, no BM YET, walking in halls plan d/c today 06/25 admit [place] FOLLOWING ok with d/c npo iv fluid support iv pain control gi consult progressive ambulation frequent labs PAIN WORSE 06/21 MADE NPO 06/24 now on reg diet still high risk for recovery with meth abuse 33 min pt exam,d/c planning chart review,> 50% of time spent with exam, chart review, pt care coordination/// high risk for recovery given hx substance abuse Vitals Vitals Vital Signs Date Time Temp Pulse Resp B/P (MAP) Pulse Ox O2 Delivery O2 Flow Rate FiO2 06/25/18 09:34 Room Air 06/25/18 07:00 98.1 50 16 114/82 (93) 98 98.1 Physical Exam General: Alert, Oriented X3, Cooperative, No acute distress Heart: Regular rate, Normal S1, Normal S2, No murmurs Lungs: Clear Abdomen: Normal bowel sounds, Soft, Other (ND, incision c/d/i) Extremities: No cyanosis, No edema Skin: No rashes, No breakdown, No significant lesion FINAL DIAGNOSIS Problems Medical Problems: (1) Small bowel obstruction Status: Acute Brief Hospital Course Mr. Cheek is a 42 old [sex] who presented with [ SBO ACUTE] CONDITION AT DISCHARGE: Improved Discharge Medications Current Medications Fentanyl Citrate (Fentanyl 2ml Vial) 50 mcg 1X ONCE IV Last administered on 06/17/18at 12:43; Start 06/17/18 at 12:45; Stop 06/17/18 at 12:49; Status DC Haloperidol Lactate (Haldol Inj) 5 mg 1X ONCE IM Last administered on 06/17/18at 12:43; Start 06/17/18 at 12:45; Stop 06/17/18 at 12:49; Status DC Iohexol (Omnipaque 300 Mg/ml) 75 ml 1X ONCE IV Last administered on 06/17/18at 13:26; Start 06/17/18 at 13:00; Stop 06/17/18 at 13:01; Status DC Ondansetron HCl (Zofran) 4 mg PRN Q8HRS PRN IV NAUSEA/VOMITING; Start 06/17/18 at 14:15; Stop 06/18/18 at 14:14; Status DC Morphine Sulfate (Morphine Sulfate) 6 mg PRN Q2HR PRN IV PAIN Last administered on 06/18/18at 14:11; Start 06/17/18 at 14:15; Stop 06/18/18 at 14:14; Status DC Sodium Chloride 1,000 ml @ 125 mls/hr Q8H IV Last administered on 06/18/18at 10:09; Start 06/17/18 at 14:03; Stop 06/18/18 at 14:02; Status DC Sodium Chloride 500 ml @ 500 mls/hr 1X ONCE IV ; Start 06/17/18 at 14:15; Stop 06/17/18 at 15:14; Status DC Sodium Chloride 1,000 ml @ 1,000 mls/hr 1X ONCE IV Last administered on 06/17/18at 14:29; Start 06/17/18 at 14:15; Stop 06/17/18 at 15:14; Status DC Cefazolin Sodium/ Dextrose 50 ml @ 100 mls/hr 1X ONCE IV Last administered on 06/17/18at 17:15; Start 06/17/18 at 16:00; Stop 06/17/18 at 16:29; Status DC Metronidazole 100 ml @ 100 mls/hr 1X ONCE IV ; Start 06/17/18 at 16:00; Stop 06/17/18 at 16:59; Status DC Sevoflurane (Ultane) 90 ml STK-MED ONCE IH ; Start 06/17/18 at 16:07; Stop 06/17/18 at 16:09; Status DC Midazolam HCl (Versed) 2 mg STK-MED ONCE .ROUTE ; Start 06/17/18 at 16:08; Stop 06/17/18 at 16:09; Status DC Fentanyl Citrate (Fentanyl 2ml Vial) 100 mcg STK-MED ONCE .ROUTE ; Start 06/17/18 at 16:08; Stop 06/17/18 at 16:09; Status DC Succinylcholine Chloride (Anectine) 200 mg STK-MED ONCE .ROUTE ; Start 06/17/18 at 16:08; Stop 06/17/18 at 16:09; Status DC Glycopyrrolate (Robinul) 1 mg STK-MED ONCE .ROUTE ; Start 06/17/18 at 16:08; Stop 06/17/18 at 16:09; Status DC Neostigmine Methylsulfate (Neostigmine Methylsulfate) 5 mg STK-MED ONCE .ROUTE ; Start 06/17/18 at 16:08; Stop 06/17/18 at 16:09; Status DC Rocuronium [place] (Zemuron) 50 mg STK-MED ONCE .ROUTE ; Start 06/17/18 at 16:08; Stop 06/17/18 at 16:09; Status DC Dexamethasone Sodium Phosphate (Decadron) 4 mg STK-MED ONCE .ROUTE ; Start 06/17/18 at 16:09; Stop 06/17/18 at 16:10; Status DC Propofol 20 ml @ As Directed STK-MED ONCE IV ; Start 06/17/18 at 16:09; Stop 06/17/18 at 16:10; Status DC Lidocaine HCl (Lidocaine Pf 2% Vial) 5 ml STK-MED ONCE .ROUTE ; Start 06/17/18 at 16:09; Stop 06/17/18 at 16:10; Status DC Ondansetron HCl (Zofran) 4 mg STK-MED ONCE .ROUTE ; Start 06/17/18 at 16:09; Stop 06/17/18 at 16:10; Status DC Ketorolac Tromethamine (Toradol For Or Only) 30 mg STK-MED ONCE INJ ; Start 06/17/18 at 16:09; Stop 06/17/18 at 16:10; Status DC Ondansetron HCl (Zofran) 4 mg PRN Q6HRS PRN IV NAUSEA/VOMITING; Start 06/17/18 at 16:15; Stop 06/18/18 at 16:14; Status DC Fentanyl Citrate (Fentanyl 2ml Vial) 25 mcg PRN Q5MIN PRN IV MILD PAIN; Start 06/17/18 at 16:15; Stop 06/18/18 at 16:14; Status DC Fentanyl Citrate (Fentanyl 2ml Vial) 50 mcg PRN Q5MIN PRN IV MODERATE TO SEVERE PAIN Last administered on 06/17/18at 19:45; Start 06/17/18 at 16:15; Stop 06/18/18 at 16:14; Status DC Morphine Sulfate (Morphine Sulfate) 1 mg PRN Q10MIN PRN IV SEVERE PAIN; Start 06/17/18 at 16:15; Stop 06/18/18 at 16:14; Status DC Ringer's Solution 1,000 ml @ 30 mls/hr Q24H IV ; Start 06/17/18 at 16:03; Stop 06/18/18 at 04:02; Status DC Lidocaine HCl (Xylocaine-Mpf 1% 2ml Vial) 2 ml 1X PRN PRN ID IV START; Start 06/17/18 at 16:15; Stop 06/18/18 at 16:14; Status DC Hydromorphone HCl (Dilaudid) 0.5 mg PRN Q10MIN PRN IV SEV PAIN, Second choice; Start 06/17/18 at 16:15; Stop 06/18/18 at 16:14; Status DC Prochlorperazine Edisylate (Compazine) 5 mg PACU PRN PRN IV NAUSEA, MRX1 Last administered on 06/17/18at 19:47; Start 06/17/18 at 16:15; Stop 06/18/18 at 16:14; Status DC Bupivacaine HCl/ Epinephrine Bitart (Sensorcain-Mpf Epi 0.5%-1:864233) 30 ml STK-MED ONCE .ROUTE ; Start 06/17/18 at 15:28; Stop 06/17/18 at 16:29; Status DC Famotidine (Pepcid Vial) 20 mg STK-MED ONCE .ROUTE ; Start 06/17/18 at 17:32; Stop 06/17/18 at 17:34; Status DC Midazolam HCl (Versed) 2 mg STK-MED ONCE .ROUTE ; Start 06/17/18 at 17:33; Stop 06/17/18 at 17:34; Status DC Ephedrine Sulfate (ePHEDrine PF IN SALINE SYRINGE) 50 mg STK-MED ONCE IV ; Start 06/17/18 at 17:58; Stop 06/17/18 at 17:59; Status DC Sevoflurane (Ultane) 60 ml STK-MED ONCE IH ; Start 06/17/18 at 18:22; Stop 06/17/18 at 18:23; Status DC Morphine Sulfate (Morphine Sulfate) 6 mg PRN Q6HRS PRN IV PAIN Last administered on 06/19/18at 13:43; Start 06/18/18 at 18:45; Stop 06/19/18 at 19:44; Status DC Sodium Chloride 1,000 ml @ 100 mls/hr Q10H IV Last administered on 06/25/18at 00:00; Start 06/18/18 at 19:00; Stop 06/25/18 at 10:37; Status DC Famotidine (Pepcid Vial) 20 mg BID IVP Last administered on 06/24/18at 09:20; Start 06/19/18 at 10:00; Stop 06/24/18 at 09:49; Status DC Oxycodone/ Acetaminophen (Percocet 5/325) 1 tab PRN Q4HRS PRN PO PAIN Last administered on 06/25/18at 12:58; Start 06/19/18 at 12:45; Stop 06/25/18 at 13:41; Status DC Throat Lozenges (Cepacol Sore Throat Lozenge) 1 kayli PRN Q2HRS PRN PO SORE THROAT Last administered on 06/22/18at 06:17; Start 06/19/18 at 14:00; Stop 06/25/18 at 13:41; Status DC Nicotine (Nicoderm Cq 14mg) 1 patch PRN DAILY PRN TD SMOKING CESSATION Last a dministered on 06/21/18at 09:21; Start 06/19/18 at 14:00; Stop 06/25/18 at 13:41; Status DC Morphine Sulfate (Morphine Sulfate) 8 mg PRN Q4HRS PRN IV MODERATE TO SEVERE PAIN Last administered on 06/25/18at 08:44; Start 06/19/18 at 19:45; Stop 06/25/18 at 09:36; Status DC Enoxaparin Sodium (Lovenox 40mg Syringe) 40 mg Q24H SQ Last administered on 5/7/19at 08:43; Start 06/22/18 at 09:00; Stop 06/25/18 at 13:41; Status DC Pantoprazole Sodium (Protonix) 40 mg DAILYAC PO Last administered on 06/25/18at 06:03; Start 06/25/18 at 07:30; Stop 06/25/18 at 13:41; Status DC Active Scripts Active [Pantoprazole] 40 MG Tablet.dr 40 Mg PO DAILYAC 14 Days Percocet 5-325 Mg Tablet (Oxycodone/Acetaminophen) 1 Each Tablet 1 Tab PO PRN Q4HRS PRN 7 Days Allergies Allergies Coded Allergies Type Severity Reaction Last Updated Verified No Known Drug Allergies 06/17/18 No Disposition/Orders: D/C to Home Patient Instructions D/C PLANNING 33 MIN GABRIELA ESQUIVEL MD Jul 30, 2018 13:24
== END 2018-06-25 13:30 | disposition home or self-care (01) | DRG 336 ==
LOC: ER 12:28 → 4 NORTH 14:00
PROVIDERS: ADMIT Family Medicine; ATTEND Family Medicine
PROC: 0DN80ZZ Release Small Intestine, Open Approach (ICD-10-PCS; principal; 2018-06-18)
PROC: 0DJD4ZZ Inspection of Lower Intestinal Tract, Percutaneous Endoscopic Approach (ICD-10-PCS; 2018-06-18)
DX: K56.50 Intestinal adhesions [bands], unspecified as to partial versus complete obstruction (principal); K46.0 Unspecified abdominal hernia with obstruction, without gangrene; E87.2 Acidosis; F15.10 Other stimulant abuse, uncomplicated; F17.210 Nicotine dependence, cigarettes, uncomplicated; J44.9 Chronic obstructive pulmonary disease, unspecified; K56.7 Ileus, unspecified; Z53.31 Laparoscopic surgical procedure converted to open procedure; Z82.49 Family history of ischemic heart disease and other diseases of the circulatory system
CPT/HCPCS: 31500; 36415; 74018; 74177; 80053; 80307; 81001; 83605; 83690; 85025; 87086; 93005; 96361; 96372; 96374; A7015; C1769; G0480; J0171; J0330; J0696; J0780; J1100; J1630; J1650; J1885; J2001; J2250; J2270; J2405; J2704; J2710; J3010; J3490; J7030; J7120; Q9967; 99285-25